=== PATIENT | female | born 1940 | race African-American/Black ===

== ENCOUNTER → 2017-03-20 | Outpatient (CLI) | payer OTHER ==
[2015-09-21 12:15] VITALS: BP 128/60
--- NOTE | 2017-03-20 11:34 | RAD ---
HISTORY: Low back pain. Study: AP and lateral lumbar spine Comparison: None Findings: Five lumbar type vertebra present. Mild osteopenia is noted. There is moderate facet arthropathy at multiple levels. Moderate lateral spurring is noted predominating at L2/L3. The lateral view demon strates 4- 5 mm of spondylolisthesis of L3 on L4. Moderately severe disc space narrowing is noted at L2/L3 with endplate sclerosis at this level. Moderate disc space narrowing is noted at L5/S1 with 2 -3 mm of retrolisthesis. Mild anterior spurring is present at several levels. IMPRESSION: 1. Lumbar spondylosis as described above. 2. No acute bony abnormalities are identified. Reported By:
--- NOTE | 2017-03-20 11:55 | RAD ---
Indication: Left hip pain . Exam: Left hip series Technique: AP pelvis and frog-leg view left hip. Findings: There is mild joint space narrowing symmetrically in both hips. No fracture or dislocation is seen. The pelvis is intact. The soft tissues are normal. Impression: Mild osteoarthritic changes in both hips with no acute abnormality seen. Reported By:
== END ==
LOC: RAD 10:47
PROVIDERS: ATTEND Nurse Practitioner Family
DX: M54.5 Low back pain (principal); M25.552 Pain in left hip; M47.816 Spondylosis without myelopathy or radiculopathy, lumbar region
CPT/HCPCS: 72100; 73501

== ENCOUNTER 2017-03-21 10:40 | Emergency (ER) | payer OTHER ==
[2017-03-21 10:50] VITALS: BP 134/82; BMI 22.8
[2017-03-21] MEDS ORDERED: TORADOL 60 MG VIAL IM ONE (11:00)
[2017-03-21] MEDS ORDERED: NORFLEX INJ IM ONE (11:00)
--- NOTE | 2017-03-21 11:02 | DR.GENAD ---
HPI - PCP Primary Care Physician: SANTIAGO JULES - HPI Comment HPI Comment: XRAY LT HIP DID NOT SHOW FRATURE. MEDS AT HOME NOT RELIEVING PAIN. NO TRAUMA. - Complaint/Symptoms Chief Complaint Doctors Comments: INCREASING LEFT HIP DOWN LEFT AMKLE FOR SEVERAL DAYS. Chief Complaint:: PATIENT [facility] DUE TO HAVING SEVERE HIP PAIN AND CRAMPING. PATIENT WAS SEEN BY SANTIAGO IN THE OFFICE ON FRI. AND HAD X RAY DONE YESTERDAY HERE AT THE HOSPITAL. BEEN GOING ON SINCE FRIDAY PAIN IS FROM THE TOP OF HIP TO THE ANKLE ON THE LEFT SIDE. PATIENT DENIES ANY FALLS OR TRAUMA. - Nurses notes reviewed Nurses Notes Review: Yes - Source History Provided: Patient, EMS - Mode of Arrival Mode of Arrival: EMS - Timing Onset of Chief Complaint: 03/16/17 Came on: Gradually - Duration Duration: Constant Duration: Days - Severity Severity: Moderate PMH - PMH Past Medical History: Yes Past Medical History: Arthritis, Diabetes, Hypertension Past Surgical History: Yes Surgical History: Appendectomy - Family History History of Family Medical Conditions: No - Social History Does patient currently use any type of tobacco product: Yes Have you used tobacco products in the last 12 months: Yes Type of Tobacco Use: Cigarettes How many years tobacco product used: 40 Do you use any recreational Drugs:: No Lives With: Family Lives Where: Home - infectious screening In the last 2 months have you had wt loss of >10#?: NO Have you had fever, night sweats or hemotysis?: No Have you traveled outside the country in the last 6 months?: No Isolation: Standard ROS - Review of Systems Constitutional: No Symptoms Reported Eyes: No Symptoms Reported ENTM: No Symptoms Reported Respiratoy: No Symptoms Reported Cardiovascular: No Symptoms Reported Gastrointestinal/Abdominal: No Symptoms Reported Genitourinary: No Symptoms Reported Neurological: No Symptoms Reported Musculoskeletal: Left, Hip, Leg, Ankle Integumentary: No Symptoms Reported Hematologic/Lymphatic: No Symptoms Reported Endocrine: No Symptoms Reported All Other Systems: Reviewed and Negative PE - Vital Signs Vitals: Temperature 98.9 F Pulse Rate 81 Respiratory Rate 16 Blood Pressure [Right Arm] 128/60 Blood Pressure 134/82 O2 Sat by Pulse Oximetry 96 - General Limitations: No Limitations General Appearance: Alert - Head Head Exam: Normal Inspection - Eyes Eye exam: Normal Appearance - ENT ENT Exam: Normal External Ear Exam External Ear Exam: Normal External Inspection TM/Canal Exam: Bilateral Normal Nose Exam: Normal Nose Exam Mouth Exam: Normal Inspection Throat Exam: Normal Inspection - Neck Neck Exam: Trachea Midline - Chest Chest Inspection: Symmetric Chest Wall Rise - Respiratory Respiratory Exam: Normal Lung Sounds Bilat Respiratory Exam: Bilateral Clear to Auscultation - Cardiovascular Cardiovascular Exam: Regular Rate, Normal Rhythm, Normal Heart Sounds - Abdominal Exam Abdominal Exam: Normal Inspection - Extremities Extremities Exam: Tenderness (LEFT HIP TENDER. DEUCE WITH PAIN.) - Back Back Exam: Normal Inspection, Paraspinal Tenderness - Neurologic Neurological Exam: Alert, Oriented X3 - Psychiatric Psychiatric Exam: Normal Affect, Normal Mood - Skin Skin Exam: Normal Color MDM - Differential Diagnosis Differential Diagnosis: ARTHRITIS, BURSITIS, TENDINITIS, FRACTURE LT HIP Course - Treatment Treatment: SEE ORDERS. - Education/Counseling Education/Counseling: Patient, Education Educated On: Treatment, Diagnosis, Needs for Follow Up - Diagnosis Discharge Problem: Arthritis DJD (degenerative joint disease) Qualifiers: Osteoarthritis location: hip Osteoarthritis type: unspecified Laterality: left Qualified Code(s): M16.12 - Unilateral primary osteoarthritis, left hip - Discharge Plan Disposition: HOME, SELF-CARE Condition: Stable Prescriptions: Cyclobenzaprine HCl [FLEXERIL 10 MG *] 10 mg PO BID PRN #14 tab PRN Reason: Tramadol HCl 50 mg PO BID #14 tablet - Follow ups/Referrals Follow ups/Referrals: SANTIAGO JULES [Primary Care Provider] - 3 days - Instructions Instructions: Osteoarthritis, Degenerative Disk Disease Additional Instructions: RETURN TO ED IF WORSE.
[2017-03-21] MEDS ORDERED: NORFLEX INJ ONE (11:10)
[2017-03-21] MEDS ORDERED: TORADOL 60 MG VIAL ONE (11:10)
--- NOTE | 2017-03-21 11:57 | CT ---
HISTORY: Left hip pain, nontraumatic Study: CT left hip without contrast Comparison: Plain film 03/20/2017 Technique: Axial noncontrast images with coronal and sagittal reformats. Dose reduction procedures we re used with mA/kv adjusted for body size. Findings: The bones are osteopenic. The visualized left side of the sacrum, left SI joint, and left pelvic bone s are intact. The left hip joint is intact. There is minimal degenerative joint space narrowing in th e hip joint. No joint erosions are noted. No fracture, lytic, or blastic lesion is identified. No per iarticular soft tissue abnormality is identified. IMPRESSION: Mild degenerative joint space narrowing left hip Osteopenia Reported By:
--- NOTE | 2017-03-21 12:03 | CT ---
HISTORY: Low back pain, nontraumatic Study: CT lumbar spine without contrast Comparison: None Technique: Axial noncontrast images with coronal and sagittal reformats. Dose reduction procedures we re used with mA/kv adjusted for body size. Findings: The bones are osteopenic. The alignment is normal with the exception of slight anterolisthesis L3 on L4. The vertebral bodies are of average height. No compression fractures are identified. The pedicles , spinous processes, and posterior elements are intact. The sacrum and SI joints are intact. Mild deg enerative changes present in the SI joints. The disc levels are evaluated as follows: L1-2 level: There is broad-based disc protrusion which is partially calcified and effaces the thecal sac. It contributes to mild lateral recess narrowing bilaterally. The joints are normal. L2-3 level: There is severe disc degeneration with vacuum phenomenon present. Broad-based disc osteop hyte formation effaces the thecal sac and contributes along with spondylitic change and bilateral fac et arthropathy to severe lateral recess and foraminal narrowing bilaterally left worse than right. L3-4 level: There is slight anterolisthesis L3 on L4. There is also diffuse disc protrusion which eff aces the thecal sac and contributes along with ligamentous hypertrophy and facet arthropathy and pedi cular shortening to a relative spinal stenosis with marked lateral recess and foraminal narrowing jevon aterally left worse than right. L4-5 level: Broad-based partially calcified disc protrusion contributes along with ligamentous hypert rophy, facet arthropathy and pedicular shortening to a relative spinal stenosis with lateral recess a nd foraminal narrowing bilaterally not quite as severe as at the levels above. L5-S1 level: There is disc degeneration with broad-based disc protrusion which contributes along with bilateral facet arthropathy to marked lateral recess and foraminal narrowing bilaterally. Incidental note is made of minimal focal dilatation of the distal abdominal aorta demonstrating a max imum diameter of 2.9 cm. IMPRESSION: As above Reported By:
[2017-03-21] MEDS ORDERED: MORPHINE SULFATE INJ 10 MG IVP ONE (12:21)
== END 2017-03-21 12:58 | disposition home or self-care (01) ==
LOC: ER 10:44
DX: M19.90 Unspecified osteoarthritis, unspecified site (principal); M16.12 Unilateral primary osteoarthritis, left hip
CPT/HCPCS: 72131; 73700; 96372; 99282; J1885; J2270; J2360

== ENCOUNTER 2018-03-19 06:33 | Observation (INO) ==
[2018-03-19] MEDS ORDERED: NS 1000 ML 1,000 ML ONE (06:43)
[2018-03-19 06:54] VITALS: BMI 22.8
[2018-03-19] MEDS ORDERED: ADENOCARD INJ 6 MG ONE (06:56)
[2018-03-19] MEDS ORDERED: CARDIZEM INJ 50 MG VIAL IVP ONE (06:59)
[2018-03-19] MEDS ORDERED: ADENOCARD INJ 6 MG IVP ONE (07:03)
[2018-03-19 07:17] LABS: BASOPHILS # (AUTO) 0.1 X10^3/uL (0.0-0.1); BASOPHILS % (AUTO) 0.4 % (0.2-1.0); EOSINOPHILS % (AUTO) 0.2 % (0.9-2.9); HEMATOCRIT 46.9 % (36.0-47.0); HEMOGLOBIN 15.3 g/dL (12.0-16.0); LYMPHOCYTES # (AUTO) 1.6 X10^3/uL (1.3-2.9); LYMPHOCYTES % (AUTO) 10.3 % (21.0-51.0); MEAN CORPUSCULAR HEMOGLOBIN 29.7 pg (27.0-34.0); MEAN CORPUSCULAR HGB CONC 32.6 g/dL (33.0-35.0); MEAN PLATELET VOLUME 8.7 fL (7.4-11.0); MONOCYTES # (AUTO) 0.8 x10^3/uL (0.3-0.8); MONOCYTES % (AUTO) 5.5 % (0.0-13.0); NEUTROPHILS # (AUTO) 12.8 x10^3/uL (2.2-4.8); NEUTROPHILS % (AUTO) 83.6 % (42.0-75.0); PLATELET COUNT 218 X10^3/uL (150.0-450.0); RED BLOOD COUNT 5.15 X10^6/uL (3.5-5.4); RED CELL DISTRIBUTION WIDTH 15.1 % (11.6-16.5); WHITE BLOOD COUNT 15.3 X10^3/uL (3.6-10.0)
--- NOTE | 2018-03-19 07:20 | DR.GENAD ---
HPI Time Seen Time Seen by Provider: 03/19/18 06:46 PCP Primary Care Physician: GANGA AVERY Complaint/Symptoms Chief Complaint Doctors Comments: Patient presented to the ED with complaint of severe stomach pain onset this AM. She states that she had nausea and vomiting. No recent BM. Chief Complaint:: PT C/O SUDDEN ONSET OF SEVERE LOWER ABDOMINAL PAIN THAT STARTED AROUND 3AM THIS MORNING ASSOCIATED WITH NAUSEA AND VOMITING. DENIES DIARRHEA. PT STATES SHE HASN'T HAD A BM SINCE FRIDAY Source History Provided: Patient and EMS Mode of Arrival Mode of Arrival: EMS Timing Onset of Chief Complaint: 03/19/18 PMH PMH Past Medical History: Yes Past Medical History: Diabetes and Hypertension Past Medical History Comment: RHEUMATOID ARTHRITIS Past Surgical History: Yes Surgical History: Appendectomy Family History History of Family Medical Conditions: Yes Family Medical History: Coronary Artery Disease Social History Does patient currently use any type of tobacco product: No Have you used tobacco products in the last 12 months: No Type of Tobacco Use: None Does any household member use tobacco: No Alcohol Use: None Do you use any recreational Drugs:: No Lives With: Alone Lives Where: Home infectious screening In the last 2 months have you had wt loss of >10#?: NO Have you had fever, night sweats or hemotysis?: No Have you traveled outside the country in the last 6 months?: No Isolation: Standard PE Vital Signs Vitals: Temperature 98.5 F Pulse Rate 86 Respiratory Rate 22 Blood Pressure [Right Arm] 128/60 Blood Pressure 147/94 O2 Sat by Pulse Oximetry 97 General Limitations: No Limitations General Appearance: Alert and Anxious Head Head Exam: Normal Inspection, Atraumatic and Normocephalic Eyes Eye exam: Normal Appearance, PERRL and EOMI ENT ENT Exam: Normal Exam, Normal Oropharynx and Normal External Ear Exam TM/Canal Exam: Bilateral: Normal Nose Exam: Normal Nose Exam and Sinus Tenderness Mouth Exam: Normal Inspection Throat Exam: Normal Inspection Chest Chest Inspection: Normal Inspection and Symmetric Chest Wall Rise Respiratory Respiratory Exam: Normal Lung Sounds Bilat and Accessory Muscle Use Respiratory Exam: Bilateral: Clear to Auscultation Cardiovascular Cardiovascular Exam: Tachycardia (HR>185) Abdominal Exam Abdominal Exam: Normal Inspection and Distention Abdominal Tenderness: Epigastrium and Suprapubic Extremities Extremities Exam: Normal Inspection Back Back Exam: Normal Inspection, Full ROM and Tenderness Neurologic Neurological Exam: Alert, Oriented X3 and CN II-XII Intact Psychiatric Psychiatric Exam: Flat Affect Skin Skin Exam: Warm, Dry and Intact COURSE Consultation Called: 07:00 Consultation Comments: Dr. Harrell agreed to admit for further evaluation and treatment ROR Labs Reviewed Laboratory Results Reviewed?: Yes Result Diagrams: 03/19/18 07:08 03/19/18 07:08 Laboratory: WBC 15.3 X10^3/uL (3.6-10.0) H 03/19/18 07:08 RBC 5.15 X10^6/uL (3.5-5.4) 03/19/18 07:08 Hgb 15.3 g/dL (12.0-16.0) 03/19/18 07:08 Hct 46.9 % (36.0-47.0) 03/19/18 07:08 MCV 91.0 fL (80.0-100.0) 03/19/18 07:08 MCH 29.7 pg (27.0-34.0) 03/19/18 07:08 MCHC 32.6 g/dL (33.0-35.0) L 03/19/18 07:08 RDW 15.1 % (11.6-16.5) 03/19/18 07:08 Plt Count 218 X10^3/uL (150.0-450.0) 03/19/18 07:08 MPV 8.7 fL (7.4-11.0) 03/19/18 07:08 Neut % (Auto) 83.6 % (42.0-75.0) H 03/19/18 07:08 Lymph % (Auto) 10.3 % (21.0-51.0) L 03/19/18 07:08 [place] % (Auto) 5.5 % (0.0-13.0) 03/19/18 07:08 Eos % (Auto) 0.2 % (0.9-2.9) L 03/19/18 07:08 Baso % (Auto) 0.4 % (0.2-1.0) 03/19/18 07:08 Neut # (Auto) 12.8 x10^3/uL (2.2-4.8) H 03/19/18 07:08 Lymph # (Auto) 1.6 X10^3/uL (1.3-2.9) 03/19/18 07:08 [place] # (Auto) 0.8 x10^3/uL (0.3-0.8) 03/19/18 07:08 Eos # (Auto) 0.0 x10^3/uL (0.0-0.2) 03/19/18 07:08 Baso # (Auto) 0.1 X10^3/uL (0.0-0.1) 03/19/18 07:08 Absolute Nucleated RBC 0.1 /100WBC 03/19/18 07:08 INR Target Range - 03/19/18 15:04 INR 1.08 (0.8-1.3) 03/19/18 15:04 APTT 29.8 SECONDS (22.9-36.5) 03/19/18 15:04 PTT Comment - 03/19/18 15:04 Sodium 139 mmol/L (136-145) 03/19/18 07:08 Corrected Sodium 142 mmol/L (136-145) 03/19/18 07:08 Potassium 3.8 mmol/L (3.5-5.1) 03/19/18 07:08 Chloride 105 mmol/L (98-107) 03/19/18 07:08 Carbon Dioxide 19.2 mmol/L (21-32) L 03/19/18 07:08 BUN 23 mg/dL (7-18) H 03/19/18 07:08 Creatinine 1.37 mg/dL (0.55-1.02) H 03/19/18 07:08 Est GFR (MDRD) Af Amer 48 (>60) L 03/19/18 07:08 Est GFR (MDRD) Non-Af 40 (>60) L 03/19/18 07:08 Glucose 239 mg/dL (65-99) H 03/19/18 07:08 Lactic Acid 3.5 mmol/L (0.4-2.0) H 03/19/18 15:04 Calcium 9.2 mg/dL (8.5-10.1) 03/19/18 07:08 Corrected Calcium 10.2 mg/dL (8.5-10.1) H 03/19/18 07:08 Total Bilirubin 0.60 mg/dL (0.2-1.0) 03/19/18 07:08 AST 31 Units/L (15-37) 03/19/18 07:08 ALT 18 Units/L (12-78) 03/19/18 07:08 Alkaline Phosphatase 131 Units/L (46-116) H 03/19/18 07:08 Creatine Kinase 415 Units/L (26-192) H 03/19/18 12:58 CK-MB (CK-2) 55.0 ng/mL (0-4.0) H* 03/19/18 12:58 CK/CKMB % Calc 13.3 % (<4) 03/19/18 12:58 Troponin I 13.66 ng/mL (0-1.5) H* 03/19/18 15:04 Total Protein 6.8 g/dL (6.4-8.2) 03/19/18 07:08 Albumin 2.7 g/dL (3.4-5.0) L 03/19/18 07:08 Globulin 4.1 g/dL (2.5-4.5) 03/19/18 07:08 Albumin/Globulin Ratio 0.7 Ratio (1.1-2.1) L 03/19/18 07:08 Specimen Type Catherized urine 03/19/18 07:35 Urine Color Dark yellow (YELLOW) 03/19/18 07:35 Urine Appearance Hazy (CLEAR) 03/19/18 07:35 Urine pH 5.0 (5.0 - 8.0) 03/19/18 07:35 Ur Specific [place] 1.010 (1.000-1.030) 03/19/18 07:35 Urine Protein 2+ (NEGATIVE) 03/19/18 07:35 Urine Glucose (UA) Negative (NEGATIVE) 03/19/18 07:35 Urine Ketones 1+ (NEGATIVE) 03/19/18 07:35 Urine Occult Blood 2+ (NEGATIVE) 03/19/18 07:35 Urine Nitrite Positive (NEGATIVE) 03/19/18 07:35 Urine Bilirubin 1+ (NEGATIVE) 03/19/18 07:35 Urine Urobilinogen 1+ (NORMAL) 03/19/18 07:35 Ur Leukocyte Esterase 2+ (NEGATIVE) 03/19/18 07:35 Urine RBC None seen /HPF (NONE SEEN) 03/19/18 07:35 Urine WBC 0-2 /HPF (NONE SEEN) 03/19/18 07:35 Ur Squamous Epith Cells Few /HPF (NEGATIVE) 03/19/18 07:35 Urine Bacteria Trace /HPF (NEGATIVE) 03/19/18 07:35 Hyaline Casts Few /LPF (NEGATIVE) 03/19/18 07:35 Ur Culture Indicated? No/not indicated 03/19/18 07:35 Other Results Comments: Chest: The heart is normal limits in size. No congestive heart failure is noted. The aorta is calcified. The lungs are well inflated and free of acute alveolar infiltrates. Diffuse interstitial lung changes are present stable when compared with the prior examination and likely chronic. The bony thorax is unremarkable. Impression: Diffuse chronic appearing interstitial lung changes, stable. No acute infiltrates. XRAY XRAY Interpreted by: Radiologist Diagnosis Discharge Problem: Sustained SVT Diabetes mellitus Qualifiers: Diabetes mellitus type: other specified (including [place]) Diabetes mellitus fpc insulin use: without fpc use Diabetes mellitus complication status: with unspecified complications Qualified Code(s): E13.8 - Other specified diabetes mellitus with unspecified complications ADDITIONAL NOTES Additional Notes Additional Notes: Patient admitted for further evaluation and treatment
--- NOTE | 2018-03-19 07:25 | RAD ---
HISTORY: Tachycardia, abdominal pain Study: Chest AP portable Comparison: 08/26/2017 Findings: The heart is within normal limits in size. No congestive heart failure is noted. The aorta is calcified. The lungs are well inflated and free of acute alveolar infiltrates. Diffuse interstitial lung changes are present stable when compared with the prior examination and likely chronic. The bony thorax is unremarkable. IMPRESSION: Diffuse chronic appearing interstitial lung changes, stable No acute infiltrates Reported By:
[2018-03-19 07:33] LABS: LACTIC ACID 4.6 mmol/L (0.4-2.0)
[2018-03-19 07:35] LABS: CALCIUM 9.2 mg/dL (8.5-10.1); CARBON DIOXIDE 19.2 mmol/L (21-32); CREATININE 1.37 mg/dL (0.55-1.02); TROPONIN I 0.61 ng/mL (0-1.5)
[2018-03-19] MEDS: NS 1000 ML 1,000 ML IV SCH ×3 (07:42→17:03)
[2018-03-19 07:47] LABS: BILIRUBIN,URINE 1+ (NEGATIVE); BLOOD/HEMOGLOBIN,URINE 2+ (NEGATIVE); GLUCOSE, URINE NEGATIVE (NEGATIVE); KETONES,URINE 1+ (NEGATIVE); LEUKOCYTE ESTERASE ,URINE 2+ (NEGATIVE); NITRITES,URINE POSITIVE (NEGATIVE); PROTEIN,URINE 2+ (NEGATIVE); UROBILINOGEN,URINE 1+ (NORMAL)
[2018-03-19 07:58] LABS: ALBUMIN 2.7 g/dL (3.4-5.0); COR CA(FOR HYPOALB) 10.2 mg/dL (8.5-10.1); TOTAL PROTEIN 6.8 g/dL (6.4-8.2)
[2018-03-19 07:58] LABS: APPEARANCE,URINE HAZY (CLEAR); BACTERIA,URINE TRACE /HPF (NEGATIVE); COLOR,URINE DARK YELLOW (YELLOW); HYALINE CASTS, URINE FEW /LPF (NEGATIVE); RBC,URINE NONE SEEN /HPF (NONE SEEN); SQUAMOUS EPITHELIAL CELL,UR FEW /HPF (NEGATIVE)
[2018-03-19] MEDS ORDERED: MORPHINE SULFATE INJ 4 MG IVP PRN (08:30)
--- NOTE | 2018-03-19 08:31 | RAD ---
History: Abdominal pain and nausea and vomiting and diarrhea Study: KUB graph comparison: None Findings: The bowel gas pattern is unremarkable. There are degenerative changes in the spine. No abnormal mass or calcification is suggested. Impression: No acute disease suggested Reported By:
[2018-03-19] MEDS ORDERED: ETANERCEPT 50 MG SUBCUT SCH (10:37)
[2018-03-19] MEDS ORDERED: FLEXERIL TAB 10 MG PO PRN (10:37)
--- NOTE | 2018-03-19 10:38 | CT ---
STUDY: CT HEAD WITHOUT CONTRAST HISTORY: Severe headache. SVT. COMPARISON: None. TECHNIQUE: Multiple axial images of the head were obtained from the skull base to the vertex without administration of IV contrast. Automated exposure control (AEC) was utilized to adjust the MA and/or kV. Findings: The sulci, cisterns and ventricles are prominent consistent with diffuse volume loss. There are confluent and scattered foci of low attenuation in the periventricular and subcortical white matter of both hemispheres. This is a nonspecific finding which likely represents microangiopathic change in a patient of this age. There are old lacunar infarcts in the basal ganglia bilaterally. There is no evidence of acute territorial infarction, hemorrhage, mass, mass effect or midline shift. There are no abnormal extra-axial fluid collections. There is no evidence of acute osseous abnormality or significant soft tissue swelling. IMPRESSION: 1. No evidence of acute intracranial abnormality. 2. Old lacunar infarcts in the basal ganglia bilaterally. 3. Nonspecific white matter change and volume loss as described. 4. If there is strong clinical concern for acute intracranial abnormality, then an MRI examination of the brain could be performed for further evaluation. However, if there are no deficits on neurologic exam, there are no abnormalities identified on this study which require immediate imaging follow-up on an emergent basis. Follow-up MRI could be considered on an outpatient basis as clinically warranted. Reported By:
[2018-03-19] MEDS ORDERED: ZESTRIL TAB 40 MG PO SCH (11:00)
[2018-03-19] MEDS ORDERED: NEURONTIN CAP 300 MG PO SCH (11:00)
[2018-03-19] MEDS ORDERED: ROCEPHIN VIAL 1 GRAM IVP SCH (13:45)
[2018-03-19 13:51] LABS: CKMB % 13.3 % (<4)
[2018-03-19 13:55] LABS: TROPONIN I 9.96 ng/mL (0-1.5)
[2018-03-19] MEDS ORDERED: LOPRESSOR TAB 25 MG PO SCH (14:00)
[2018-03-19] MEDS ORDERED: HEPARIN SODIUM IN D5W 25,000 UNITS/500 ML BAG IV PRN (14:35)
[2018-03-19] MEDS ORDERED: PLAVIX PO STA (14:45)
[2018-03-19] MEDS ORDERED: ASPIRIN 81 MG CHEWTAB PO STA (14:48)
[2018-03-19] MEDS ORDERED: LOPRESSOR TAB 25 MG PO ONE (14:56)
[2018-03-19] MEDS ORDERED: ASPIRIN 81 MG CHEWTAB PO NR (15:00)
[2018-03-19] MEDS ORDERED: PLAVIX PO NR (15:00)
[2018-03-19 15:29] LABS: LACTIC ACID 3.5 mmol/L (0.4-2.0)
[2018-03-19 15:42] LABS: TROPONIN I 13.66 ng/mL (0-1.5)
[2018-03-19] MEDS ORDERED: HEPARIN SODIUM INJ 5000 UNITS ONE (15:42)
[2018-03-19] MEDS ORDERED: HEPARIN SODIUM INJ 5000 UNITS IVP ONE (15:45)
[2018-03-19] MEDS ORDERED: GLUCOPHAGE PO SCH (17:00)
[2018-03-19 17:14] VITALS: BP 147/94
--- NOTE | 2018-03-19 17:52 | DR.H&P ---
H&P - History & Physical for Day of: H&P Date: 03/19/18 - Chief Complaint Chief Complaint: SOB, NEAR SYNCOPE - History of Present Illness History of Present Illness: 77 BF ER ADMISSION AFTER PRESENTING WITH CO NEAR SYNCOPE AND SOB WHILE HAVING BM. PT STATES SHE HAD BEEN CONSTIPATED AND TOOK LAXITIVES AND WOKE UP DURING THE NIGHT WITH STOMACH PAIN AND LOOSE STOOL, BECAME VERY WEAK AND "ABOUT PASSED OUT" PT'S SON CALLED EMS. UPON ARRIVAL TO ER PT WAS IN SVT. PT GIVEN ADENOSEN IN ER AND CONVERTED TO SR. PT HAS PMH OF RA, HTN, OA, GERD, DM AND COPD. NO KNOWN CARDIAC HISTORY. PT ADMITTED TO ICU FOR EVALAUTION AND TREATMENT OF ACUTE ILLNESS. - Past Medical History Past Medical History: Hypertension, Diabetes - Past Surgical History Surgical History: Appendectomy - Family History Family Medical History: Coronary Artery Disease - Social History Does patient currently use any type of tobacco product: No Have you used tobacco products in the last 12 months: No Type of Tobacco Use: None Does any household member use tobacco: No Alcohol Use: None Drug Use: None - Medications Home Medications: No Known Drug Allergies Allergy (Verified 03/21/17 12:20) CONTINUE taking the following medications albuterol sulfate [ProAir HFA] 2 puff INHALATION QID PRN 03/19/18 [History] cyanocobalamin (vitamin B-12) 1,000 mcg IM WEEKLY 03/19/18 [History] folic acid 1 mg PO DAILY 03/19/18 [History] gabapentin 100 mg PO DAILY 03/19/18 [History] gabapentin 200 mg PO HS 03/19/18 [History] lisinopril 40 mg PO DAILY 03/19/18 [History] - Review of Systems Constitutional: Chills, Weakness Eyes: No Symptoms Reported ENT: No Symptoms Reported Respiratory: Shortness of Breath Cardiovascular: Palpitations, Light Headedness Gastrointestinal: Nausea, Vomiting, Abdominal Pain, Diarrhea Genitourinary: No Symptoms Reported Musculoskeletal: Back Pain Neurological: Weakness - Physical Exam Vital Signs: Temperature 98.5 F Pulse Rate 86 Respiratory Rate 22 Blood Pressure [Right Arm] 128/60 Blood Pressure 147/94 O2 Sat by Pulse Oximetry 97 Oriented: Normal Eyes: Normal Ear: Normal, Left Throat: Normal Respiratory: RLL Diminished, LLL Diminished Cardiovascular: Tachycardia : Normal Auscultation: Bowel Sounds: Normal Palpation: Normal Tenderness: Normal Skin: Normal Musculoskeletal: Back:Lumbar Psychiatric: Anxiety Affect: Anxious Speech Pattern: Clear, Appropriate - Assessment/Plan (1) Syncope, near Status: Acute Plan: ADMIT ICU, CONTINUOUS CARDIAC MONITORING, SUPPLEMENTAL O2, GENTLE HYDRATION, STRICT I & OS. CT HEAD ON ADMISSION, SERIAL CE AND EKG. BP AND LIPID CONTROL. LOVENOX PROPHALAXIS (2) Constipation Status: Acute (3) Diabetes mellitus Qualifiers: Diabetes mellitus type: other specified (including [place]) Diabetes mellitus senior care insulin use: without finish repairer use Diabetes mellitus complication status: with unspecified complications Qualified Code(s): E13.8 - Other specified diabetes mellitus with unspecified complications Status: Acute (4) Sustained SVT Status: Acute (5) Arthritis Status: Acute (6) Chest pain Qualifiers: Chest pain type: unspecified Qualified Code(s): R07.9 - Chest pain, unspecified Status: Acute (7) DJD (degenerative joint disease) Qualifiers: Osteoarthritis location: hip Osteoarthritis type: unspecified Laterality: left Qualified Code(s): M16.12 - Unilateral primary osteoarthritis, left hip Status: Acute - Allergies Allergies/Adverse Reactions: Allergies Allergy/AdvReac Type Severity Reaction Status Date / Time No Known Drug Allergies Allergy Verified 03/21/17 12:20
[2018-03-19] MEDS ORDERED: NEURONTIN TAB 600 MG PO SCH (21:00)
[2018-03-20] MEDS ORDERED: PLAVIX PO SCH ×2 (09:00→14:39)
[2018-03-20] MEDS ORDERED: ASPIRIN 81 MG CHEWTAB PO SCH ×2 (09:00→14:34)
== END 2018-03-19 17:58 | disposition short-term general hospital (02) ==
LOC: OBS 06:34 → ER 06:34 → OBS 10:21 → ICU 10:26
PROVIDERS: ADMIT Internal Medicine; ATTEND Internal Medicine
DX: R07.89 Other chest pain; I47.1 Supraventricular tachycardia; K59.09 Other constipation; R11.2 Nausea with vomiting, unspecified; R10.84 Generalized abdominal pain; R94.31 Abnormal electrocardiogram [ECG] [EKG]; D72.828 Other elevated white blood cell count; I25.2 Old myocardial infarction; E11.65 Type 2 diabetes mellitus with hyperglycemia; R55 Syncope and collapse; M06.80 Other specified rheumatoid arthritis, unspecified site; M16.12 Unilateral primary osteoarthritis, left hip; R06.02 Shortness of breath
CPT/HCPCS: 36415; 51702; 70450; 71010; 71045; 74000; 74018; 80053; 81001; 82550; 82553; 83605; 84484; 85025; 85610; 85730; 87040; 93005; 93041; 96365; 96367; 96374; 99284; A4222; G0378; J0153; J0696; J1644; J2270; J7030

== ENCOUNTER 2018-06-23 08:03 | Observation (INO) ==
[2018-06-23 08:48] LABS: BASOPHILS % (AUTO) 0.4 % (0.2-1.0); EOSINOPHILS # (AUTO) 0.2 x10^3/uL (0.0-0.2); EOSINOPHILS % (AUTO) 2.6 % (0.9-2.9); HEMOGLOBIN 13.9 g/dL (12.0-16.0); LYMPHOCYTES # (AUTO) 2.8 X10^3/uL (1.3-2.9); LYMPHOCYTES % (AUTO) 37.7 % (21.0-51.0); MEAN CORPUSCULAR HEMOGLOBIN 29.5 pg (27.0-34.0); MEAN CORPUSCULAR HGB CONC 33.1 g/dL (33.0-35.0); MEAN PLATELET VOLUME 8.9 fL (7.4-11.0); MONOCYTES # (AUTO) 0.5 x10^3/uL (0.3-0.8); MONOCYTES % (AUTO) 6.2 % (0.0-13.0); NEUTROPHILS # (AUTO) 3.9 x10^3/uL (2.2-4.8); NEUTROPHILS % (AUTO) 53.1 % (42.0-75.0); PLATELET COUNT 181 X10^3/uL (150.0-450.0); RED BLOOD COUNT 4.72 X10^6/uL (3.5-5.4); RED CELL DISTRIBUTION WIDTH 15.5 % (11.6-16.5); WHITE BLOOD COUNT 7.4 X10^3/uL (3.6-10.0)
[2018-06-23 09:00] LABS: BLOOD UREA NITROGEN 15 mg/dL (7-18); CALCIUM 9.4 mg/dL (8.5-10.1); CARBON DIOXIDE 24.1 mmol/L (21-32); CHLORIDE 105 mmol/L (98-107); CREATININE 0.67 mg/dL (0.55-1.02); SODIUM 138 mmol/L (136-145); TROPONIN I < 0.02 ng/mL (0-1.5); eGFR NON BLACK RACES > 60 (>60)
[2018-06-23 09:05] LABS: ALANINE AMINOTRANSFERASE 17 Units/L (12-78); ALBUMIN 2.9 g/dL (3.4-5.0); ALKALINE PHOSPHATASE 99 Units/L (46-116); ASPARTATE AMINO TRANSFERASE 22 Units/L (15-37); CKMB % 6.5 % (<4); COR CA(FOR HYPOALB) 10.3 mg/dL (8.5-10.1); CREATINE KINASE 31 Units/L (26-192)
--- NOTE | 2018-06-23 09:08 | CT ---
CT HEAD WITHOUT CONTRAST CLINICAL HISTORY: 77-year-old female with dizziness, weakness and syncopal episode. COMPARISON: CT head 03/19/2018. TECHNIQUE: Multiple, non-contrasted axial CT images were obtained from the skull base to the cranial vertex. Coronal and sagittal reformats were performed. FINDINGS: There are no abnormal intra- or extra-axial fluid collections, midline shift, or mass effect. Smith-white differentiation is normal. Global cortical involutional changes are present that are advanced for the patient's stated age. The ventricular system is enlarged but commensurate with the degree of sulcal prominence. Chronic lacunar infarctions bilateral basal ganglia. Severe periventricular and supraventricular white matter hypodensity is present that is nonspecific in appearance, but most likely to represent microvascular ischemic changes. Atherosclerotic vascular calcification is present within the carotid siphons and distal vertebral arteries. The imaged paranasal sinuses, mastoid air cells, and tympanic spaces are clear. IMPRESSION: 1. No definite evidence of an acute intracranial process. If clinical concern persists for acute stroke and it would alter patient management, consider MRI/MRA brain. 2. Chronic lacunar infarctions bilateral basal ganglia. 3. Severe microvascular white matter ischemic changes, with associated volume loss. Reported By:
--- NOTE | 2018-06-23 09:09 | RAD ---
HISTORY: 77-year-old female with dizziness and weakness with syncopal episode. Study: Frontal views of the chest. Comparison: Chest radiographs 03/19/2018 Findings: The trachea is midline. The cardiac silhouette is stable with chronic hyper expansion of the lungs and prominent interstitium/perihilar lung markings. The lungs are clear without focal consolidation, effusion or pneumothorax. Soft tissues are unremarkable. Osseous structures are unremarkable. IMPRESSION: 1. No acute cardiopulmonary disease with findings suggesting COPD. Reported By:
--- NOTE | 2018-06-23 10:04 | DR.DIZZY ---
HPI Time seen Time Seen by Provider: 06/23/18 09:44 PCP Primary Care Physician: DHARA HPI Comment HPI Comment: PATIENT IS 77YR OLD MALE WITH HISTORY OF HYPERTENSION AND DIABETES WHO IS IN ED WITH DIZZINESS AND ATAXIA TIMES ONE DAY. PATIENT SAID HIS SURROUNDIND IS SPINING ABD IS ATAXIC. SYMPTOMS CAUSING PATIENT TO STAY STILL IN BED. MOVEMENT AND ACTVITIES CAUSE HIM TO FEEL WORSE. HE DRNIES HEADACHE OR TRAUMA. NO FEVER. SYMPTOMS NOT RESOLVING. Complaint Chief Complaint Doctor Comments: DIZZINESS AND INBALANCE TIMES 1 DAY. Chief Complaint:: PT C/O DIZZINESS THAT STARTED YESTERDAY. PT DENIES FALLING, BUT GRABBING THE FURNITURE AND WALL WHEN WALKING. Nurses Notes Reviewed Nurses Notes Review: Yes Source History Provided: Patient Mode of Arrival Mode of Arrival: EMS Timing Onset of Chief Complaint: 06/22/18 Came on: Suddenly Duration Duration: Constant Duration: Days Location of Weakness Weakness Location: Generalized Context Onset: At rest and With light exertion Does pt take pot. toxic medication?: No History of: DM Stroke Symptoms: Ataxia Severity Severity: Abnormal activity level Associated signs and symptoms Associated Signs and Symptoms: Faintness, Near Syncope, Imbalance and Nausea; denies Tinnitus and Fever Other history Other history: HISTORYVDM AND HTN. PMH PMH Past Medical History: Yes Past Medical History: Diabetes and Hypertension Past Surgical History: Yes Surgical History: Appendectomy Family History History of Family Medical Conditions: Yes Family Medical History: Coronary Artery Disease Social History Does any household member use tobacco: No Alcohol Use: None Do you use any recreational Drugs:: No Lives With: Family Lives Where: Home infectious screening In the last 2 months have you had wt loss of >10#?: NO Have you had fever, night sweats or hemotysis?: No Have you traveled outside the country in the last 6 months?: No Isolation: Standard ROS Review of Systems Constitutional: Weakness and Fatigue; negative Fever Eyes: No Symptoms Reported ENTM: Ear Pain, Nose Discharge and Nose Congestion Respiratoy: No Symptoms Reported Cardiovascular: No Symptoms Reported Gastrointestinal/Abdominal: No Symptoms Reported; negative Abdominal Pain, Constipation, Diarrhea, Nausea and Vomiting Genitourinary: No Symptoms Reported; negative Dysuria, Frequency and Hematuria Neurological: No Symptoms Reported, Headache, Weakness and Dizziness; negative Seizure Musculoskeletal: negative Back Pain, Joint Pain, Muscle Pain and Neck Pain Integumentary: No Symptoms Reported; negative Change in Color, Itching, Bruises and Juandice Hematologic/Lymphatic: No Symptoms Reported; negative Easy Bleeding and Easy Bruising Endocrine: No Symptoms Reported; negative Flushing, Increased Thirst and Increased Urine Psychiatric: No Symptoms Reported All Other Systems: Reviewed and Negative PE Vital Signs Vitals: Temperature 98.1 F Pulse Rate [Right Brachial] 57 Pulse Rate [Left Brachial] 60 Pulse Rate 58 Respiratory Rate 20 Blood Pressure [Left Arm] 130/62 Blood Pressure [Right Arm] 135/60 Blood Pressure 139/75 O2 Sat by Pulse Oximetry 97 General Limitations: No Limitations General Appearance: Alert and In No Apparent Distress Head Head Exam: Normal Inspection, Atraumatic and Normocephalic Eyes Eye exam: Normal Appearance, PERRL and EOMI; negative Scleral Icterus, Conjunctival Injection and Nystagmus Pupils: Regular, Round: Bilateral and Reactive: Bilateral Sclera/Conjunctival: Normal Inspection: Bilateral ENT ENT Exam: Normal Exam, Normal Oropharynx and Normal External Ear Exam Neck Neck Exam: Normal Inspection and Full ROM Chest Chest Inspection: Normal Inspection Respiratory Respiratory Exam: Normal Lung Sounds Bilat Respiratory Exam: Bilateral: Clear to Auscultation Cardiovascular Cardiovascular Exam: Regular Rate, Normal Rhythm, Systolic Murmur, Diastolic Murmur, Rubs, Gallop and Clicks Abdominal Exam Abdominal Exam: Normal Inspection, Normal Bowel Sounds, Soft and Tenderness Rectal Rectal Exam: Deferred Extremeties Extremities Exam: Normal Inspection and Full ROM; negative Tenderness Back Back Exam: Normal Inspection and Full ROM; negative Tenderness, Paraspinal Tenderness and Vertebral Tenderness Neurologic Neurological Exam: Alert, Oriented X3, CN II-XII Intact and Normal Gait; negative Motor Sensory Deficit Speech: Fluid Speech Cranial Nerve Exam: EOM Function (II, III, IV, ): Normal, Facial Sensation (V): Normal, Facial Palsy (VII): Normal, Gag reflex (XI): Normal and Tongue Deviation: Normal Motor Strength - LUE: 5/5 Motor Strength - RUE: 5/5 Motor Strength - LLE: 5/5 Motor Strength - RLE: 5/5 Upper Motor Neuron Exam: Babinski Sign: Normal DTR: bicep (L): 2+, bicep (R): 2+, Patellar (L): 2+ and patellar (R): 2+ Psychiatric Psychiatric Exam: Normal Affect and Anxious Skin Skin Exam: Warm, Dry, Intact and Normal Color MDM Additional Information Obtained Additional Information Obtained From: Old Records (reviewed old record from 05/2014.) Differential Diagnosis Differential Diagnosis: Anemia, CVA, Dehydration, Dysrhythmia, Electrolyte disorder, Hypoglycemia, Labyrinthitis, Myocardial infarction, TIA and Central Vertigo COURSE Treatment Treatment: SEE ORDERS. MECLIZINE PO IN ED. Education/Counseling Education/Counseling: Patient and Family Educated On: Diagnosis ROR Labs Reviewed Laboratory Results Reviewed?: Yes Result Diagrams: 06/24/18 04:40 06/24/18 04:40 Laboratory: WBC 6.3 X10^3/uL (3.6-10.0) 06/24/18 04:40 RBC 4.33 X10^6/uL (3.5-5.4) 06/24/18 04:40 Hgb 13.0 g/dL (12.0-16.0) 06/24/18 04:40 Hct 39.1 % (36.0-47.0) 06/24/18 04:40 MCV 90.2 fL (80.0-100.0) 06/24/18 04:40 MCH 30.1 pg (27.0-34.0) 06/24/18 04:40 MCHC 33.4 g/dL (33.0-35.0) 06/24/18 04:40 RDW 15.3 % (11.6-16.5) 06/24/18 04:40 Plt Count 163 X10^3/uL (150.0-450.0) 06/24/18 04:40 MPV 9.1 fL (7.4-11.0) 06/24/18 04:40 Neut % (Auto) 35.0 % (42.0-75.0) L 06/24/18 04:40 Lymph % (Auto) 54.6 % (21.0-51.0) H 06/24/18 04:40 [place] % (Auto) 6.8 % (0.0-13.0) 06/24/18 04:40 Eos % (Auto) 3.4 % (0.9-2.9) H 06/24/18 04:40 Baso % (Auto) 0.2 % (0.2-1.0) 06/24/18 04:40 Neut # (Auto) 2.2 x10^3/uL (2.2-4.8) 06/24/18 04:40 Lymph # (Auto) 3.5 X10^3/uL (1.3-2.9) H 06/24/18 04:40 [place] # (Auto) 0.4 x10^3/uL (0.3-0.8) 06/24/18 04:40 Eos # (Auto) 0.2 x10^3/uL (0.0-0.2) 06/24/18 04:40 Baso # (Auto) 0.0 X10^3/uL (0.0-0.1) 06/24/18 04:40 Absolute Nucleated RBC 0.0 /100WBC 06/24/18 04:40 Sodium 141 mmol/L (136-145) 06/24/18 04:40 Corrected Sodium TNP 06/24/18 04:40 Potassium 4.3 mmol/L (3.5-5.1) 06/24/18 04:40 Chloride 107 mmol/L (98-107) 06/24/18 04:40 Carbon Dioxide 25.0 mmol/L (21-32) 06/24/18 04:40 BUN 13 mg/dL (7-18) 06/24/18 04:40 Creatinine 0.65 mg/dL (0.55-1.02) 06/24/18 04:40 Est GFR (MDRD) Af Amer > 60 (>60) 06/24/18 04:40 Est GFR (MDRD) Non-Af > 60 (>60) 06/24/18 04:40 Glucose 88 mg/dL (65-99) 06/24/18 04:40 Calcium 9.3 mg/dL (8.5-10.1) 06/24/18 04:40 Corrected Calcium 10.5 mg/dL (8.5-10.1) H 06/24/18 04:40 Iron 33 ug/dL (50-175) L 06/23/18 19:51 Transferrin 201 mg/dL (202-364) L 06/23/18 19:51 Ferritin 50 ng/mL (8-252) 06/23/18 19:51 Total Bilirubin 0.20 mg/dL (0.2-1.0) 06/24/18 04:40 AST 19 Units/L (15-37) 06/24/18 04:40 ALT 17 Units/L (12-78) 06/24/18 04:40 Alkaline Phosphatase 102 Units/L (46-116) 06/24/18 04:40 Creatine Kinase 27 Units/L (26-192) 06/23/18 19:51 CK-MB (CK-2) < 1.0 ng/mL (0-4.0) 06/23/18 19:51 CK/CKMB % Calc 3.7 % (<4) 06/23/18 19:51 Troponin I 0.02 ng/mL (0-1.5) 06/23/18 19:51 Total Protein 6.3 g/dL (6.4-8.2) L 06/24/18 04:40 Albumin 2.5 g/dL (3.4-5.0) L 06/24/18 04:40 Globulin 3.8 g/dL (2.5-4.5) 06/24/18 04:40 Albumin/Globulin Ratio 0.7 Ratio (1.1-2.1) L 06/24/18 04:40 Vitamin B12 > 2000 pg/mL (193-986) H 06/23/18 19:51 Folate 6.6 ng/mL (>8.6) L 06/23/18 19:51 Specimen Type Clean catch urine 06/23/18 12:55 Urine Color Yellow (YELLOW) 06/23/18 12:55 Urine Appearance Clear (CLEAR) 06/23/18 12:55 Urine pH 6.0 (5.0 - 8.0) 06/23/18 12:55 Ur Specific [place] 1.025 (1.000-1.030) 06/23/18 12:55 Urine Protein Negative (NEGATIVE) 06/23/18 12:55 Urine Glucose (UA) Negative (NEGATIVE) 06/23/18 12:55 Urine Ketones Negative (NEGATIVE) 06/23/18 12:55 Urine Occult Blood Negative (NEGATIVE) 06/23/18 12:55 Urine Nitrite Negative (NEGATIVE) 06/23/18 12:55 Urine Bilirubin Negative (NEGATIVE) 06/23/18 12:55 Urine Urobilinogen Normal (NORMAL) 06/23/18 12:55 Ur Leukocyte Esterase 1+ (NEGATIVE) 06/23/18 12:55 Urine RBC 0-2 /HPF (NONE SEEN) 06/23/18 12:55 Urine WBC 0-2 /HPF (NONE SEEN) 06/23/18 12:55 Ur Squamous Epith Cells Few /HPF (NEGATIVE) 06/23/18 12:55 Urine Bacteria Negative /HPF (NEGATIVE) 06/23/18 12:55 Ur Culture Indicated? No/not indicated 06/23/18 12:55 XRAY XRAY Interpreted by: Radiologist XRAY Findings: REPORT ON RECORD NOTED AND DISCUSS WITH PATIENT. EKG [place]: Normal Rhythm: NSR Block: None Hypertrophy: None ST: Normal Instructions Instructions: Steps to Quit Smoking, [id number] Nonspecific Chest Pain Hypertension, Dmyq-eg-Path Dizziness, [id number] Type 2 Diabetes Mellitus, Diagnosis, Adult, [id number]
[2018-06-23] MEDS ORDERED: ANTIVERT TAB 25 MG PO ONE (10:53)
[2018-06-23] MEDS ORDERED: ANTIVERT TAB 25 MG ONE (10:55)
[2018-06-23] MEDS ORDERED: PROVENTIL NEB TX 0.083% 2.5MG/ 3ML IN PRN (12:27)
[2018-06-23] MEDS: NS 1000 ML 1,000 ML IV SCH (13:01)
[2018-06-23] MEDS: LIPITOR TAB 40 MG PO SCH ×2 (13:01→21:22)
[2018-06-23] MEDS: PLAQUENIL PO SCH ×2 (13:01→13:13)
[2018-06-23] MEDS ORDERED: ZANTAC ONE (13:05)
[2018-06-23] MEDS ORDERED: PriLOSEC ONE (13:06)
[2018-06-23] MEDS ORDERED: GLUCOPHAGE ONE ×2 (13:06→19:34)
[2018-06-23] MEDS ORDERED: NEURONTIN CAP 100 MG ONE (13:06)
[2018-06-23] MEDS ORDERED: ZESTRIL TAB 40 MG ONE (13:06)
[2018-06-23 13:12] LABS: BILIRUBIN,URINE NEGATIVE (NEGATIVE); BLOOD/HEMOGLOBIN,URINE NEGATIVE (NEGATIVE); GLUCOSE, URINE NEGATIVE (NEGATIVE); KETONES,URINE NEGATIVE (NEGATIVE); LEUKOCYTE ESTERASE ,URINE 1+ (NEGATIVE); NITRITES,URINE NEGATIVE (NEGATIVE); PROTEIN,URINE NEGATIVE (NEGATIVE); UROBILINOGEN,URINE NORMAL (NORMAL)
[2018-06-23] MEDS: PriLOSEC PO SCH ×2 (13:13→21:25)
[2018-06-23] MEDS: GLUCOPHAGE PO SCH ×2 (13:13→21:25)
[2018-06-23] MEDS: NEURONTIN CAP 100 MG PO SCH (13:14)
[2018-06-23] MEDS: ZESTRIL TAB 40 MG PO SCH (13:14)
[2018-06-23] MEDS: ZANTAC PO SCH ×2 (13:14→21:25)
[2018-06-23 13:15] LABS: APPEARANCE,URINE CLEAR (CLEAR); COLOR,URINE YELLOW (YELLOW)
[2018-06-23 13:18] VITALS: BMI 21.7
[2018-06-23 13:24] LABS: BACTERIA,URINE NEGATIVE /HPF (NEGATIVE); RBC,URINE 0-2 /HPF (NONE SEEN); SQUAMOUS EPITHELIAL CELL,UR FEW /HPF (NEGATIVE)
[2018-06-23 14:22] LABS: CKMB % 8.2 % (<4); CREATINE KINASE 28 Units/L (26-192); CREATINE KINASE MB 2.3 ng/mL (0-4.0); TROPONIN I < 0.02 ng/mL (0-1.5)
--- NOTE | 2018-06-23 18:30 | DR.H&P ---
H&P - History & Physical for Day of: H&P Date: 06/23/18 - Chief Complaint Chief Complaint: DIZZINESS - History of Present Illness History of Present Illness: 77 BF ER ADMISSION AFTER PRESENTING WITH CO EPISODE OF DIZZINESS ON FRIDAY. PT HAS HX OF SVT, WITH SIMILAR SYMPTOMS. PT HAS PMH OF DM, COPD, RA, HTN. PT HAD CT HEAD IN ER WITHOUT ACUTE FINDINGS. PT DENIES CP OR SOB. PT ADMITTED FOR EVALUATION OF DIZZINESS, R/O CVA - Past Medical History Past Medical History: Hypertension, Diabetes - Past Surgical History Surgical History: Appendectomy - Family History Family Medical History: Coronary Artery Disease - Social History Does patient currently use any type of tobacco product: Yes Have you used tobacco products in the last 12 months: Yes Type of Tobacco Use: Cigarettes Does any household member use tobacco: No Alcohol Use: None Drug Use: None - Medications Home Medications: No Known Drug Allergies Allergy (Verified 03/21/17 12:20) CONTINUE taking the following medications amlodipine 5 mg PO HS 06/23/18 [History] atorvastatin 40 mg PO QHS 06/23/18 [History] chlordiazepoxide HCl 25 mg PO Q8H PRN 06/23/18 [History] hydroxychloroquine 200 mg PO QDAY 06/23/18 [History] metformin 500 mg PO BID 06/23/18 [History] omeprazole 20 mg PO BID 06/23/18 [History] ranitidine HCl 150 mg PO BID 06/23/18 [History] - Review of Systems Constitutional: Weakness Eyes: No Symptoms Reported ENT: No Symptoms Reported Respiratory: SOB with Excertion Cardiovascular: No Symptoms Reported. denies: Edema Gastrointestinal: No Symptoms Reported Genitourinary: No Symptoms Reported Musculoskeletal: Back Pain Skin: No Symptoms Reported Neurological: Other (DIZZINESS) - Physical Exam Vital Signs: Temperature 98.1 F Pulse Rate [Left Brachial] 62 Pulse Rate 80 Respiratory Rate 20 Blood Pressure [Left Arm] 146/69 Blood Pressure [Right Arm] 126/64 Blood Pressure 139/75 O2 Sat by Pulse Oximetry 96 Oriented: Normal Eyes: Normal Ear: Normal Nose: Normal Throat: Normal Respiratory: RLL Diminished, LLL Diminished Cardiovascular: Normal. negative: Edema : Normal Auscultation: Bowel Sounds: Normal Palpation: Normal Tenderness: Normal Skin: Decreased Turgur Musculoskeletal: Back:Lumbar Psychiatric: Anxiety Affect: Anxious Speech Pattern: Clear, Appropriate - Assessment/Plan (1) Syncope, near Status: Acute Plan: ADMIT, CT HEAD ON ADMISSION. CE AND EKG. BS CONTROL, IV HYDRATION. RESP CONSULT, CAROTID ARTERY CTA (2) Hypertension Status: Acute (3) Dizziness Status: Acute (4) DJD (degenerative joint disease) Status: Acute (5) Diabetes mellitus Status: Acute - Allergies Allergies/Adverse Reactions: Allergies Allergy/AdvReac Type Severity Reaction Status Date / Time No Known Drug Allergies Allergy Verified 03/21/17 12:20
[2018-06-23] MEDS ORDERED: NORCO 5/325 MG TAB PO PRN (18:31)
[2018-06-23] MEDS ORDERED: RESTORIL CAP 15 MG PO PRN (18:41)
[2018-06-23] MEDS: LOVENOX INJ 40 MG SYR SC SCH (19:16)
[2018-06-23 20:21] LABS: CKMB % 3.7 % (<4); CREATINE KINASE 27 Units/L (26-192); CREATINE KINASE MB < 1.0 ng/mL (0-4.0); TROPONIN I 0.02 ng/mL (0-1.5)
[2018-06-23 20:47] LABS: IRON 33 ug/dL (50-175)
[2018-06-23] MEDS ORDERED: NORVASC TAB 5 MG PO SCH (21:00)
[2018-06-23] MEDS ORDERED: COLACE CAP 100 MG PO SCH (21:00)
[2018-06-23] MEDS ORDERED: NEURONTIN CAP 100 MG PO SCH (21:00)
[2018-06-24] MEDS: NS 1000 ML 1,000 ML IV SCH ×2 (02:04→13:20)
[2018-06-24 05:22] LABS: BASOPHILS % (AUTO) 0.2 % (0.2-1.0); EOSINOPHILS # (AUTO) 0.2 x10^3/uL (0.0-0.2); EOSINOPHILS % (AUTO) 3.4 % (0.9-2.9); HEMATOCRIT 39.1 % (36.0-47.0); LYMPHOCYTES # (AUTO) 3.5 X10^3/uL (1.3-2.9); LYMPHOCYTES % (AUTO) 54.6 % (21.0-51.0); MEAN CORPUSCULAR HEMOGLOBIN 30.1 pg (27.0-34.0); MEAN CORPUSCULAR HGB CONC 33.4 g/dL (33.0-35.0); MEAN CORPUSCULAR VOLUME 90.2 fL (80.0-100.0); MEAN PLATELET VOLUME 9.1 fL (7.4-11.0); MONOCYTES # (AUTO) 0.4 x10^3/uL (0.3-0.8); MONOCYTES % (AUTO) 6.8 % (0.0-13.0); NEUTROPHILS # (AUTO) 2.2 x10^3/uL (2.2-4.8); PLATELET COUNT 163 X10^3/uL (150.0-450.0); RED BLOOD COUNT 4.33 X10^6/uL (3.5-5.4); RED CELL DISTRIBUTION WIDTH 15.3 % (11.6-16.5); WHITE BLOOD COUNT 6.3 X10^3/uL (3.6-10.0)
[2018-06-24 05:27] LABS: ALANINE AMINOTRANSFERASE 17 Units/L (12-78); ALBUMIN 2.5 g/dL (3.4-5.0); ALKALINE PHOSPHATASE 102 Units/L (46-116); ASPARTATE AMINO TRANSFERASE 19 Units/L (15-37); BLOOD UREA NITROGEN 13 mg/dL (7-18); CALCIUM 9.3 mg/dL (8.5-10.1); CHLORIDE 107 mmol/L (98-107); COR CA(FOR HYPOALB) 10.5 mg/dL (8.5-10.1); CREATININE 0.65 mg/dL (0.55-1.02); SODIUM 141 mmol/L (136-145); TOTAL PROTEIN 6.3 g/dL (6.4-8.2); eGFR NON BLACK RACES > 60 (>60)
[2018-06-24] MEDS: ZANTAC PO SCH (08:40)
[2018-06-24] MEDS: PriLOSEC PO SCH (08:40)
[2018-06-24] MEDS: PLAQUENIL PO SCH (08:40)
[2018-06-24] MEDS: ZESTRIL TAB 40 MG PO SCH (08:40)
[2018-06-24] MEDS: LOVENOX INJ 40 MG SYR SC SCH (08:40)
[2018-06-24] MEDS: NEURONTIN CAP 100 MG PO SCH (08:40)
[2018-06-24] MEDS ORDERED: ZITHROMAX INJ 500 MG VIAL 500 MG in NS 250 ML IV 250 ML IV SCH (11:04)
--- NOTE | 2018-06-24 15:27 | CT ---
HISTORY: Dizziness. Study: CTA carotids with/without contrast Comparison: CT head dated June 23, 2018. Technique: Multiple axial images of the carotid arteries before and after the administration of IV contrast. Sagittal and coronal reformats were performed and reviewed. 3D reformats/MIP images were also performed. Dose reduction techniques including Automated Exposure Control (AEC) and adjustment of mA and kV were utilized. Findings: The visualized portions of the posterior fossa and orbits are unremarkable in appearance. The parotid glands, submandibular glands, and thyroid gland are unremarkable in their contrast appearance. The carotid space on the right and left is unremarkable. No mass or significant lymphadenopathy can be identified. The prevertebral and paraspinous regions are unremarkable. The nasopharynx, oropharynx, hypopharynx are unremarkable. The larynx appears symmetric. Moderate atherosclerotic vascular calcifications and mural thrombus at the left carotid bulb/proximal left internal carotid artery with approximately 50% stenosis of the proximal left internal carotid artery. Mild atherosclerotic vascular calcifications of the right carotid bulb/proximal right internal carotid artery without significant stenosis. Other areas of scattered vascular calcification without evidence of significant stenosis. Degenerative changes of the spine. No aggressive osseous lesions. Moderate to severe centrilobular and paraseptal emphysematous changes of the lung apices. IMPRESSION: 1. Approximately 50% stenosis of the proximal left internal carotid artery. 2. No significant stenosis of the right internal carotid artery. Reported By:
[2018-06-24 16:05] VITALS: BP 135/60
== END 2018-06-24 16:55 | disposition home or self-care (01) ==
LOC: ER 08:03 → MED/SURG 08:03
PROVIDERS: ADMIT Internal Medicine; ATTEND Internal Medicine
DX: I25.10 Atherosclerotic heart disease of native coronary artery without angina pectoris; R55 Syncope and collapse; R26.89 Other abnormalities of gait and mobility; I10 Essential (primary) hypertension; J44.9 Chronic obstructive pulmonary disease, unspecified; R42 Dizziness and giddiness; E11.65 Type 2 diabetes mellitus with hyperglycemia; Z79.899 Other long term (current) drug therapy; E78.2 Mixed hyperlipidemia
CPT/HCPCS: 36415; 70450; 70498; 71010; 71045; 80053; 81001; 82550; 82553; 82607; 82728; 82746; 83540; 84466; 84484; 85025; 93005; 96365; 96367; 96372; 96374; 97166; 99284; A4222; G0378; J0456; J1650; J7030; J7050

== ENCOUNTER 2018-06-30 21:54 | Observation (INO) ==
[2018-06-30 22:14] LABS: BASOPHILS % (AUTO) 0.3 % (0.2-1.0); EOSINOPHILS # (AUTO) 0.2 x10^3/uL (0.0-0.2); EOSINOPHILS % (AUTO) 2.7 % (0.9-2.9); HEMATOCRIT 42.4 % (36.0-47.0); HEMOGLOBIN 14.3 g/dL (12.0-16.0); LYMPHOCYTES # (AUTO) 2.8 X10^3/uL (1.3-2.9); LYMPHOCYTES % (AUTO) 40.4 % (21.0-51.0); MEAN CORPUSCULAR HEMOGLOBIN 30.2 pg (27.0-34.0); MEAN CORPUSCULAR HGB CONC 33.8 g/dL (33.0-35.0); MEAN CORPUSCULAR VOLUME 89.5 fL (80.0-100.0); MEAN PLATELET VOLUME 8.7 fL (7.4-11.0); MONOCYTES # (AUTO) 0.5 x10^3/uL (0.3-0.8); MONOCYTES % (AUTO) 7.4 % (0.0-13.0); NEUTROPHILS # (AUTO) 3.3 x10^3/uL (2.2-4.8); NEUTROPHILS % (AUTO) 49.2 % (42.0-75.0); PLATELET COUNT 181 X10^3/uL (150.0-450.0); RED BLOOD COUNT 4.73 X10^6/uL (3.5-5.4); RED CELL DISTRIBUTION WIDTH 15.5 % (11.6-16.5); WHITE BLOOD COUNT 6.8 X10^3/uL (3.6-10.0)
[2018-06-30] MEDS ORDERED: MORPHINE SULFATE INJ 2 MG INJ IVP ONE (22:16)
[2018-06-30] MEDS ORDERED: MORPHINE SULFATE INJ 2 MG INJ ONE (22:18)
[2018-06-30 22:30] LABS: BLOOD UREA NITROGEN 11 mg/dL (7-18); CALCIUM 9.5 mg/dL (8.5-10.1); CARBON DIOXIDE 22.5 mmol/L (21-32); CHLORIDE 102 mmol/L (98-107); COR NA(FOR HYPERGLY) 138 mmol/L (136-145); CREATININE 0.84 mg/dL (0.55-1.02); SODIUM 138 mmol/L (136-145); TROPONIN I 0.02 ng/mL (0-1.5); eGFR NON BLACK RACES > 60 (>60)
[2018-06-30 22:35] LABS: ALANINE AMINOTRANSFERASE 18 Units/L (12-78); ALBUMIN 2.9 g/dL (3.4-5.0); ALKALINE PHOSPHATASE 102 Units/L (46-116); ASPARTATE AMINO TRANSFERASE 19 Units/L (15-37); CKMB % 3.3 % (<4); COR CA(FOR HYPOALB) 10.4 mg/dL (8.5-10.1); CREATINE KINASE 36 Units/L (26-192); CREATINE KINASE MB 1.2 ng/mL (0-4.0); TOTAL PROTEIN 6.9 g/dL (6.4-8.2)
--- NOTE | 2018-06-30 22:38 | RAD ---
Chest, one view Indication: Chest pain Comparison: 06/23/2018 Findings: Heart is normal in size. Lungs are hyperinflated with coarsened interstitial markings, suggestive for COPD. No focal infiltrate or significant effusion is identified. No pneumothorax. Impression: Findings suggestive for COPD without acute cardiopulmonary abnormality. Reported By:
--- NOTE | 2018-06-30 22:40 | DR.CP ---
HPI Time Seen Time Seen by Provider: 06/30/18 22:17 PCP Primary Care Physician: CULLEN Complaint Chief Complaint Doctor Comments: Patient presents with complaint of mid sternal chest pain/reflux ? lasting abut one hour.. She states that she could not tell if the pain was due to the burping or her chest.. She admits to GE Reflux. Pain level 9 and decreased to 5. She state that there diaphoresis of the scalp. She last saw her specification writer in April; she had a small which was not large enough for catherization. PMH DJD, SVT,DM,syncope, vertigo. Chief Complaint:: STATES CHEST PAIN X 1 HR THAT WAS 8/10 BUT IS NOW 5/10. Self Treatment fo Chief Complaint: N/A Source History Provided: Patient and EMS Mode of Arrival Mode of Arrival: EMS Timing Onset of Chief Complaint: 06/30/18 PMH PMH Past Medical History: Yes Past Medical History: Arthritis, Coronary Artery Disease, Diabetes, Hypertension and MS Past Medical History Comment: VERTIGO Past Surgical History: Yes Surgical History: Appendectomy and Other (cardiac catherization) Family History History of Family Medical Conditions: Yes Family Medical History: Diabetes Mellitus and Coronary Artery Disease Family Medical History Comment: STROKE Social History Does patient currently use any type of tobacco product: Yes Have you used tobacco products in the last 12 months: Yes Type of Tobacco Use: Cigarettes Does any household member use tobacco: No Alcohol Use: None Do you use any recreational Drugs:: No Lives With: Family Lives Where: Home infectious screening In the last 2 months have you had wt loss of >10#?: NO Have you had fever, night sweats or hemotysis?: No Have you traveled outside the country in the last 6 months?: No Isolation: Standard ROS Review of Systems Constitutional: No Symptoms Reported Eyes: No Symptoms Reported ENTM: No Symptoms Reported and Nose Congestion Respiratoy: No Symptoms Reported and Non-Productive Cough Cardiovascular: No Symptoms Reported Gastrointestinal/Abdominal: No Symptoms Reported Genitourinary: No Symptoms Reported Neurological: No Symptoms Reported Musculoskeletal: No Symptoms Reported Integumentary: No Symptoms Reported Hematologic/Lymphatic: No Symptoms Reported Endocrine: No Symptoms Reported All Other Systems: Reviewed and Negative PE Vitals Vitals: Pulse Rate 101 Respiratory Rate 22 Blood Pressure [Left Arm] 130/62 Blood Pressure [Right Arm] 135/60 Blood Pressure 106/58 O2 Sat by Pulse Oximetry 94 General Limitations: No Limitations General Appearance: Alert and In No Apparent Distress Head Head Exam: Normal Inspection, Atraumatic and Normocephalic Eyes Eye exam: Normal Appearance, PERRL and EOMI ENT ENT Exam: Normal Exam, Normal Oropharynx and Normal External Ear Exam Chest Chest Inspection: Normal Inspection and Symmetric Chest Wall Rise Respiratory Respiratory Exam: Normal Lung Sounds Bilat and Chest Wall Tenderness Respiratory Exam: Bilateral: Clear to Auscultation Cardiovascular Cardiovascular Exam: Regular Rate and Normal Rhythm Pulse: Normal and Radial Abdominal Exam Abdominal Exam: Normal Bowel Sounds and Soft Back Back Exam: Normal Inspection Neurologic Neurological Exam: Alert, Oriented X3 and CN II-XII Intact Psychiatric Psychiatric Exam: Normal Affect and Normal Mood Skin Skin Exam: Warm, Dry, Intact and Normal Color MDM Differential Diagnosis Differential Diagnosis: Angina, Chest Wall Pain, Costochondritis, Esophageal Reflux/Spasm, Gastritis, Myocardial Infarction and Pericarditis COURSE Treatment Treatment: Cardiac workup per protocol. Pain level decreased to 4 with morphine. Systolic BP 104, deferred NTG. Reevaluation 1st: Improved Consultation Called: 23:00 Consultation Comments: Contacted Dr. Martinez who agreed to admit for chest pain protocol ROR Labs Reviewed Laboratory Results Reviewed?: Yes Result Diagrams: 06/30/18 22:05 06/30/18 22:05 Laboratory: WBC 6.8 X10^3/uL (3.6-10.0) 06/30/18 22:05 RBC 4.73 X10^6/uL (3.5-5.4) 06/30/18 22:05 Hgb 14.3 g/dL (12.0-16.0) 06/30/18 22:05 Hct 42.4 % (36.0-47.0) 06/30/18 22:05 MCV 89.5 fL (80.0-100.0) 06/30/18 22:05 MCH 30.2 pg (27.0-34.0) 06/30/18 22:05 MCHC 33.8 g/dL (33.0-35.0) 06/30/18 22:05 RDW 15.5 % (11.6-16.5) 06/30/18 22:05 Plt Count 181 X10^3/uL (150.0-450.0) 06/30/18 22:05 MPV 8.7 fL (7.4-11.0) 06/30/18 22:05 Neut % (Auto) 49.2 % (42.0-75.0) 06/30/18 22:05 Lymph % (Auto) 40.4 % (21.0-51.0) 06/30/18 22:05 [place] % (Auto) 7.4 % (0.0-13.0) 06/30/18 22:05 Eos % (Auto) 2.7 % (0.9-2.9) 06/30/18 22:05 Baso % (Auto) 0.3 % (0.2-1.0) 06/30/18 22:05 Neut # (Auto) 3.3 x10^3/uL (2.2-4.8) 06/30/18 22:05 Lymph # (Auto) 2.8 X10^3/uL (1.3-2.9) 06/30/18 22:05 [place] # (Auto) 0.5 x10^3/uL (0.3-0.8) 06/30/18 22:05 Eos # (Auto) 0.2 x10^3/uL (0.0-0.2) 06/30/18 22:05 Baso # (Auto) 0.0 X10^3/uL (0.0-0.1) 06/30/18 22:05 Absolute Nucleated RBC 0.1 /100WBC 06/30/18 22:05 Sodium 138 mmol/L (136-145) 06/30/18 22:05 Corrected Sodium 138 mmol/L (136-145) 06/30/18 22:05 Potassium 3.7 mmol/L (3.5-5.1) 06/30/18 22:05 Chloride 102 mmol/L (98-107) 06/30/18 22:05 Carbon Dioxide 22.5 mmol/L (21-32) 06/30/18 22:05 BUN 11 mg/dL (7-18) 06/30/18 22:05 Creatinine 0.84 mg/dL (0.55-1.02) 06/30/18 22:05 Est GFR (MDRD) Af Amer > 60 (>60) 06/30/18 22:05 Est GFR (MDRD) Non-Af > 60 (>60) 06/30/18 22:05 Glucose 111 mg/dL (65-99) H 06/30/18 22:05 Calcium 9.5 mg/dL (8.5-10.1) 06/30/18 22:05 Corrected Calcium 10.4 mg/dL (8.5-10.1) H 06/30/18 22:05 Total Bilirubin 0.40 mg/dL (0.2-1.0) 06/30/18 22:05 AST 19 Units/L (15-37) 06/30/18 22:05 ALT 18 Units/L (12-78) 06/30/18 22:05 Alkaline Phosphatase 102 Units/L (46-116) 06/30/18 22:05 Creatine Kinase 36 Units/L (26-192) 06/30/18 22:05 CK-MB (CK-2) 1.2 ng/mL (0-4.0) 06/30/18 22:05 CK/CKMB % Calc 3.3 % (<4) 06/30/18 22:05 Troponin I 0.02 ng/mL (0-1.5) 06/30/18 22:05 Total Protein 6.9 g/dL (6.4-8.2) 06/30/18 22:05 Albumin 2.9 g/dL (3.4-5.0) L 06/30/18 22:05 Globulin 4.0 g/dL (2.5-4.5) 06/30/18 22:05 Albumin/Globulin Ratio 0.7 Ratio (1.1-2.1) L 06/30/18 22:05 Other Results Comments: Chest X Ray: Heart is normal in size. Lungs are hyperinflated with coarsened interstitial markings, suggestive for COPD. No focal infiltrate or significant effusion is identified. No pneumothorax. Impression: Findins suggestive for COPD without acute cardiopulmonary abnormality XRAY XRAY Interpreted by: Radiologist and Self
[2018-06-30] MEDS ORDERED: PROVENTIL NEB TX 0.083% 2.5MG/ 3ML IN PRN (23:42)
[2018-07-01 00:28] VITALS: BMI 21.4
[2018-07-01] MEDS: LIPITOR TAB 40 MG PO SCH ×2 (00:31→20:53)
[2018-07-01 04:31] LABS: CHOL/HDL RATIO 1.5 (0.0-5.0); CKMB % 6.5 % (<4); CREATINE KINASE MB 2.2 ng/mL (0-4.0); TROPONIN I 0.15 ng/mL (0-1.5)
[2018-07-01] MEDS ORDERED: GLUCOPHAGE ONE (05:52)
[2018-07-01] MEDS ORDERED: GLUCOPHAGE PO SCH (07:00)
[2018-07-01] MEDS ORDERED: NS 100 ML IV 100 ML ONE (08:21)
[2018-07-01] MEDS ORDERED: ZANTAC PO SCH (09:00)
[2018-07-01] MEDS: NEURONTIN CAP 100 MG PO SCH (09:02)
[2018-07-01] MEDS: ASPIRIN 81 MG CHEWTAB PO SCH (09:02)
[2018-07-01] MEDS: NORCO 5/325 MG TAB PO SCH ×2 (09:02→20:53)
[2018-07-01] MEDS: ZESTRIL TAB 40 MG PO SCH ×2 (09:02)
--- NOTE | 2018-07-01 09:30 | CT ---
HISTORY: Midsternal chest pain Study: CTA chest with contrast for pulmonary embolus Comparison: None Technique: Axial post-contrast images with coronal, sagittal, and three-dimensional maximum intensity projection images obtained and evaluated. Dose reduction procedures were used with mA/kv adjusted for body size. Findings: There is no evidence for acute pulmonary thromboembolic disease. Examination of the mediastinum demonstrated no evidence for mediastinal masses, enlarged mediastinal, or enlarged hilar adenopathy. Calcific atherosclerotic changes present in a nondilated thoracic aorta. No pleural effusions are identified. No chest wall or axillary abnormality is identified. Those portions of the upper abdominal organs visualized were within normal limits. Examination of the lung solis demonstrated changes of centrilobular emphysema in the upper lobes bilaterally. No alveolar infiltrates, areas of consolidation, nodules, masses, bronchiectasis or peribronchial thickening is identified. IMPRESSION: No evidence for acute pulmonary thromboembolic disease No acute alveolar infiltrates Mild changes of centrilobular emphysema upper lobes bilaterally Reported By:
[2018-07-01 10:37] LABS: CKMB % 5.1 % (<4); TROPONIN I 0.12 ng/mL (0-1.5)
--- NOTE | 2018-07-01 13:26 | DR.H&P ---
H&P - History & Physical for Day of: H&P Date: 06/30/18 - Chief Complaint Chief Complaint: chest pain - History of Present Illness History of Present Illness: 77 WF ER ADMISSION WITH CO CHEST PAIN, PT STATES IT WAS ACCOMPANIED BY SOB AND EXCESSIVE SWEATING. PT FELT WEAK. PT DOES CO INCREASED INDEGESTION AND [place] WITH "ACID COMING UP IN THROAT". PT HAS HX OF SVT, HAD TO BE TRANSFERRED TO [facility] ~2 MOS AGO AND HAD HEART CATH. PT ALSO HAS HTN, COPD AND RA. PT ADMITTED FOR SERIAL CE AND EKG, R/O AMI - Past Medical History Past Medical History: [place], Coronary Artery Disease, Hypertension, Diabetes, Arthritis - Past Surgical History Surgical History: Appendectomy - Family History Family Medical History: [place], Coronary Artery Disease - Social History Does patient currently use any type of tobacco product: Yes Have you used tobacco products in the last 12 months: Yes Type of Tobacco Use: Cigarettes Does any household member use tobacco: No Alcohol Use: None Drug Use: None - Medications Home Medications: No Known Drug Allergies Allergy (Verified 06/30/18 22:01) CONTINUE taking the following medications aspirin 81 mg PO QDAY 06/30/18 [History] etanercept [Enbrel SureClick] 1 ml SUBCUT WEEKLY 06/30/18 [History] hydrocodone-acetaminophen 1 tab PO BID 06/30/18 [History] - Review of Systems Constitutional: Weakness Eyes: No Symptoms Reported ENT: No Symptoms Reported Respiratory: Cough, Shortness of Breath, SOB with Excertion Cardiovascular: Chest Pain, Light Headedness Gastrointestinal: Nausea Genitourinary: No Symptoms Reported Musculoskeletal: Back Pain Skin: No Symptoms Reported Neurological: Weakness - Physical Exam Vital Signs: Temperature 97.7 F Pulse Rate [Left Dorsalis 78 Pedis] Pulse Rate [Radial] 76 Pulse Rate [Apical] 87 Pulse Rate 95 Respiratory Rate 18 Blood Pressure [Left Arm] 118/58 Blood Pressure [Right Arm] 135/60 Blood Pressure 108/53 O2 Sat by Pulse Oximetry 97 Oriented: Normal Eyes: Normal Ear: Normal Nose: Normal Throat: Normal Respiratory: RLL Diminished, LLL Diminished Cardiovascular: Normal. negative: Edema : Normal Auscultation: Bowel Sounds: Normal Palpation: Normal Tenderness: Epigastric Skin: Decreased Turgur Musculoskeletal: Back:Lumbar Psychiatric: Anxiety Affect: Anxious Speech Pattern: Clear, Appropriate - Assessment/Plan (1) Chest pain Status: Acute Plan: ADMIT, SERIAL CE EKG. SUPPLEMENTAL O2. BP AND BS CONTROL. VERIFY HOME MEDICATIONS. ASPIRIN, PLAVIX, STATIN THERAPY (2) Arthritis Status: Acute (3) GERD (gastroesophageal reflux disease) Status: Acute (4) Diabetes mellitus Status: Acute (5) Hypertension Status: Acute - Allergies Allergies/Adverse Reactions: Allergies Allergy/AdvReac Type Severity Reaction Status Date / Time No Known Drug Allergies Allergy Verified 06/30/18 22:01
--- NOTE | 2018-07-01 17:17 | PCM.PROG ---
Progress Note - Progress Note for Day of Date of Exam: 07/01/18 - Subjective Subjective: 77 WF ER ADMISSION WITH CHEST PAIN. PT RECENTLY HAD A HEART CATH WITHOUT SIGNIFICANT DISEASE. CATH REPORT REQUESTED FROM [facility]. PT HAD SERIAL CE, TROPIN INCREASED TO 0.15 ON 2ND SET. WILL OBTAIN CTA OF CHEST WITH CONTRAST AND REPEAT CE. PT STATES SHE IS HAVING NAUSEA, INDGESTION SYMPTOMS, NO CHEST PAIN THIS AM. ADDED PO PPI AND IV PEPCID. - Past Medical Family Social History Past Med/Fam/Surg Hx: No changes since H&P Allergies: Allergies No Known Drug Allergies Allergy (Verified 06/30/18 22:01) - Review of Systems ROS: No change since H&P - Vital Signs and I&O's Vital Signs: Temperature 98.0 F Pulse Rate [Left Dorsalis 74 Pedis] Pulse Rate [Radial] 76 Pulse Rate [Apical] 87 Pulse Rate 95 Respiratory Rate 20 Blood Pressure [Left Arm] 148/66 Blood Pressure [Right Arm] 135/60 Blood Pressure 108/53 O2 Sat by Pulse Oximetry 99 Intake and Output: Intake & Output 06/29/18 06/30/18 07/01/18 07/02/18 11:59 11:59 11:59 11:59 Intake Total 460 / 460 Balance 460 / 460 - Physical Exam Oriented: Normal Eyes: Normal Ear: Normal Nose: Normal Throat: Normal Cardiovascular: Normal. negative: Edema : Normal Auscultation: Bowel Sounds: Normal Tenderness: Epigastric Skin: Decreased Turgur Musculoskeletal: Back:Lumbar Psychiatric: Anxiety Affect: Anxious Speech Pattern: Clear, Appropriate - Laboratory and Diagnostics Result Diagrams: 06/30/18 22:05 06/30/18 22:05 Labs: Laboratory WBC 6.8 X10^3/uL (3.6-10.0) 06/30/18 22:05 RBC 4.73 X10^6/uL (3.5-5.4) 06/30/18 22:05 Hgb 14.3 g/dL (12.0-16.0) 06/30/18 22:05 Hct 42.4 % (36.0-47.0) 06/30/18 22:05 MCV 89.5 fL (80.0-100.0) 06/30/18 22:05 MCH 30.2 pg (27.0-34.0) 06/30/18 22:05 MCHC 33.8 g/dL (33.0-35.0) 06/30/18 22:05 RDW 15.5 % (11.6-16.5) 06/30/18 22:05 Plt Count 181 X10^3/uL (150.0-450.0) 06/30/18 22:05 MPV 8.7 fL (7.4-11.0) 06/30/18 22:05 Neut % (Auto) 49.2 % (42.0-75.0) 06/30/18 22:05 Lymph % (Auto) 40.4 % (21.0-51.0) 06/30/18 22:05 [place] % (Auto) 7.4 % (0.0-13.0) 06/30/18 22:05 Eos % (Auto) 2.7 % (0.9-2.9) 06/30/18 22:05 Baso % (Auto) 0.3 % (0.2-1.0) 06/30/18 22:05 Neut # (Auto) 3.3 x10^3/uL (2.2-4.8) 06/30/18 22:05 Lymph # (Auto) 2.8 X10^3/uL (1.3-2.9) 06/30/18 22:05 [place] # (Auto) 0.5 x10^3/uL (0.3-0.8) 06/30/18 22:05 Eos # (Auto) 0.2 x10^3/uL (0.0-0.2) 06/30/18 22:05 Baso # (Auto) 0.0 X10^3/uL (0.0-0.1) 06/30/18 22:05 Absolute Nucleated RBC 0.1 /100WBC 06/30/18 22:05 Sodium 138 mmol/L (136-145) 06/30/18 22:05 Corrected Sodium 138 mmol/L (136-145) 06/30/18 22:05 Potassium 3.7 mmol/L (3.5-5.1) 06/30/18 22:05 Chloride 102 mmol/L (98-107) 06/30/18 22:05 Carbon Dioxide 22.5 mmol/L (21-32) 06/30/18 22:05 BUN 11 mg/dL (7-18) 06/30/18 22:05 Creatinine 0.84 mg/dL (0.55-1.02) 06/30/18 22:05 Est GFR (MDRD) Af Amer > 60 (>60) 06/30/18 22:05 Est GFR (MDRD) Non-Af > 60 (>60) 06/30/18 22:05 Glucose 111 mg/dL (65-99) H 06/30/18 22:05 POC Glucose (mg/dL) 160 mg/dL (65-99) H 07/01/18 15:42 Calcium 9.5 mg/dL (8.5-10.1) 06/30/18 22:05 Corrected Calcium 10.4 mg/dL (8.5-10.1) H 06/30/18 22:05 Total Bilirubin 0.40 mg/dL (0.2-1.0) 06/30/18 22:05 AST 19 Units/L (15-37) 06/30/18 22:05 ALT 18 Units/L (12-78) 06/30/18 22:05 Alkaline Phosphatase 102 Units/L (46-116) 06/30/18 22:05 Creatine Kinase 39 Units/L (26-192) 07/01/18 09:41 CK-MB (CK-2) 2.0 ng/mL (0-4.0) 07/01/18 09:41 CK/CKMB % Calc 5.1 % (<4) 07/01/18 09:41 Troponin I 0.12 ng/mL (0-1.5) 07/01/18 09:41 Total Protein 6.9 g/dL (6.4-8.2) 06/30/18 22:05 Albumin 2.9 g/dL (3.4-5.0) L 06/30/18 22:05 Globulin 4.0 g/dL (2.5-4.5) 06/30/18 22:05 Albumin/Globulin Ratio 0.7 Ratio (1.1-2.1) L 06/30/18 22:05 Triglycerides 63 mg/dL (0-150) 07/01/18 04:02 Cholesterol 71 mg/dL (0-200) 07/01/18 04:02 LDL Cholesterol, Calc 12 mg/dL (0-100) 07/01/18 04:02 HDL Cholesterol 46 mg/dL (40-60) 07/01/18 04:02 Cholesterol/HDL Ratio 1.5 (0.0-5.0) 07/01/18 04:02 - Plan (1) Chest pain Status: Acute Plan: SERIAL CE& EKGS, CTA CHEST WITH CONTRAST. SUPPLEMENTAL O2. BP AND BS CONTROL. VERIFY HOME MEDICATIONS. ASPIRIN, PLAVIX, STATIN THERAPY (2) Arthritis Status: Acute (3) GERD (gastroesophageal reflux disease) Status: Acute (4) Diabetes mellitus Status: Acute (5) Hypertension Status: Acute
[2018-07-01] MEDS ORDERED: NS 250 ML IV 250 ML ONE (18:12)
[2018-07-01] MEDS: PEPCID 20 MG IV PREMIX* 20 MG/50 ML BAG IV SCH ×2 (18:15→20:44)
[2018-07-01] MEDS: LEVSIN/MAALOX/LIDOC VISC PO SCH ×2 (18:16→20:42)
[2018-07-01] MEDS: PROTONIX TAB 40 MG PO SCH (18:17)
[2018-07-01] MEDS ORDERED: NORVASC TAB 5 MG PO SCH (21:00)
[2018-07-01] MEDS ORDERED: NEURONTIN CAP 300 MG PO SCH (21:00)
[2018-07-02 05:22] LABS: BASOPHILS % (AUTO) 0.1 % (0.2-1.0); EOSINOPHILS # (AUTO) 0.2 x10^3/uL (0.0-0.2); HEMATOCRIT 41.7 % (36.0-47.0); HEMOGLOBIN 13.9 g/dL (12.0-16.0); LYMPHOCYTES % (AUTO) 47.6 % (21.0-51.0); MEAN CORPUSCULAR HEMOGLOBIN 29.8 pg (27.0-34.0); MEAN CORPUSCULAR HGB CONC 33.4 g/dL (33.0-35.0); MEAN CORPUSCULAR VOLUME 89.3 fL (80.0-100.0); MEAN PLATELET VOLUME 8.8 fL (7.4-11.0); MONOCYTES # (AUTO) 0.5 x10^3/uL (0.3-0.8); MONOCYTES % (AUTO) 7.9 % (0.0-13.0); NEUTROPHILS # (AUTO) 2.6 x10^3/uL (2.2-4.8); NEUTROPHILS % (AUTO) 41.4 % (42.0-75.0); PLATELET COUNT 177 X10^3/uL (150.0-450.0); RED BLOOD COUNT 4.67 X10^6/uL (3.5-5.4); RED CELL DISTRIBUTION WIDTH 15.1 % (11.6-16.5); WHITE BLOOD COUNT 6.4 X10^3/uL (3.6-10.0)
[2018-07-02 05:29] LABS: ALANINE AMINOTRANSFERASE 16 Units/L (12-78); ALBUMIN 2.8 g/dL (3.4-5.0); ALKALINE PHOSPHATASE 106 Units/L (46-116); ASPARTATE AMINO TRANSFERASE 20 Units/L (15-37); BLOOD UREA NITROGEN 12 mg/dL (7-18); CALCIUM 9.2 mg/dL (8.5-10.1); CARBON DIOXIDE 26.8 mmol/L (21-32); CHLORIDE 105 mmol/L (98-107); COR CA(FOR HYPOALB) 10.2 mg/dL (8.5-10.1); COR NA(FOR HYPERGLY) 140 mmol/L (136-145); SODIUM 140 mmol/L (136-145); TOTAL PROTEIN 6.8 g/dL (6.4-8.2); eGFR NON BLACK RACES > 60 (>60)
[2018-07-02 08:49] LABS: CKMB % 3.5 % (<4); CREATINE KINASE MB 1.3 ng/mL (0-4.0); TROPONIN I 0.04 ng/mL (0-1.5)
[2018-07-02] MEDS: LEVSIN/MAALOX/LIDOC VISC PO SCH (08:59)
[2018-07-02] MEDS: ZESTRIL TAB 40 MG PO SCH (08:59)
[2018-07-02] MEDS: PROTONIX TAB 40 MG PO SCH (08:59)
[2018-07-02] MEDS: PEPCID 20 MG IV PREMIX* 20 MG/50 ML BAG IV SCH (08:59)
[2018-07-02] MEDS: NEURONTIN CAP 100 MG PO SCH (08:59)
[2018-07-02] MEDS: ASPIRIN 81 MG CHEWTAB PO SCH (08:59)
[2018-07-02] MEDS: NORCO 5/325 MG TAB PO SCH (09:00)
[2018-07-02 13:11] VITALS: BP 110/53
[2018-07-03] MEDS ORDERED: ETANERCEPT subcut SCH (12:00)
== END 2018-07-02 12:20 | disposition home or self-care (01) ==
LOC: ER 21:55 → MED/SURG 21:55
PROVIDERS: ADMIT Internal Medicine; ATTEND Internal Medicine
DX: K21.9 Gastro-esophageal reflux disease without esophagitis; M19.90 Unspecified osteoarthritis, unspecified site; R11.0 Nausea; R94.31 Abnormal electrocardiogram [ECG] [EKG]; I10 Essential (primary) hypertension; R07.89 Other chest pain; R06.02 Shortness of breath
CPT/HCPCS: 36415; 71010; 71045; 71275; 80053; 80061; 82550; 82553; 84484; 85025; 93005; 94760; 96365; 96374; 99284; A4216; A4222; S0028; G0378; J2270; J7050

== ENCOUNTER 2021-11-19 14:00 | Observation (INO) ==
[2021-11-19 16:52] LABS: BASOPHILS % (AUTO) 0.7 % (0.2-1.0); EOSINOPHILS # (AUTO) 0.3 x10^3/uL (0.0-0.2); EOSINOPHILS % (AUTO) 5.8 % (0.9-2.9); HEMATOCRIT 36.8 % (36.0-47.0); HEMOGLOBIN 12.2 g/dL (12.0-16.0); LYMPHOCYTES # (AUTO) 1.8 X10^3/uL (1.3-2.9); LYMPHOCYTES % (AUTO) 38.6 % (21.0-51.0); MEAN CORPUSCULAR HEMOGLOBIN 27.4 pg (27.0-34.0); MEAN CORPUSCULAR HGB CONC 33.1 g/dL (33.0-35.0); MEAN CORPUSCULAR VOLUME 82.8 fL (80.0-100.0); MONOCYTES # (AUTO) 0.4 x10^3/uL (0.3-0.8); MONOCYTES % (AUTO) 8.2 % (0.0-13.0); NEUTROPHILS # (AUTO) 2.2 x10^3/uL (2.2-4.8); NEUTROPHILS % (AUTO) 46.7 % (42.0-75.0); RED BLOOD COUNT 4.45 X10^6/uL (3.5-5.4); RED CELL DISTRIBUTION WIDTH 15.9 % (11.6-16.5); WHITE BLOOD COUNT 4.6 X10^3/uL (3.6-10.0)
[2021-11-19 16:58] LABS: ALANINE AMINOTRANSFERASE 6 Units/L (12-78); ALBUMIN 2.5 g/dL (3.4-5.0); ALKALINE PHOSPHATASE 122 Units/L (46-116); ASPARTATE AMINO TRANSFERASE 17 Units/L (15-37); BLOOD UREA NITROGEN 10 mg/dL (7-18); CALCIUM 8.7 mg/dL (8.5-10.1); CARBON DIOXIDE 29.5 mmol/L (21-32); CHLORIDE 102 mmol/L (98-107); COR CA(FOR HYPOALB) 9.9 mg/dL (8.5-10.1); CREATININE 0.69 mg/dL (0.55-1.02); MAGNESIUM 1.5 mg/dL (1.7-2.9); SODIUM 137 mmol/L (136-145); TOTAL PROTEIN 6.7 g/dL (6.4-8.2); eGFR NON BLACK RACES > 60 (>60)
[2021-11-19] MEDS ORDERED: PATIENT'S HOME MEDICATION (Oxycodone-Acetaminophen 10-325 mg tablet) PO SCH (17:30)
[2021-11-19] MEDS ORDERED: PROVENTIL NEB TX 0.083% 2.5MG/ 3ML NEB SCH (18:00)
[2021-11-19] MEDS: PROTONIX INJ 40 MG VIAL IVP SCH (18:03)
[2021-11-19] MEDS: SOLU-Medrol 40 MG VIAL IVP SCH ×3 (18:03→22:04)
[2021-11-19] MEDS: TORADOL 15 MG VIAL IVP PRN (18:03)
--- NOTE | 2021-11-19 18:10 | DR.H&P ---
H&P - History & Physical for Day of: H&P Date: 11/19/21 - Chief Complaint Chief Complaint: SEVERE PAIN IN LOWER BACK AND HIPS, CCC - History of Present Illness History of Present Illness: PT IS 81 BF DIRECT ADMIT FROM DR CORTEZ OFFICE WITH CO SEVERE LOWER BACK PAIN AND PAIN IN HIPS. PT DENIES NEW INJURY OR FALL. PT REPORTS SHE HAD CCC AND WAS SEEN IN ER ON FRIDAY FOR CHEST PAIN. PT REPORTS TAKING PAIN MEDICATION WITHOUT IMPROVEMENT. PT HAS PMH OF RA, CAD, DM, HTN, COPD. PT REPORTS RA FLARE. PT ADMITTED FOR TREATMENT AND EVALUATION OF ACUTE ILLNESS. - Past Medical History Past Medical History: [place], Coronary Artery Disease, Hypertension, Diabetes, Arthritis - Past Surgical History Surgical History: Appendectomy, Ortho Surgery - Family History Family Medical History: [place], Coronary Artery Disease - Social History Does patient currently use any type of tobacco product: Yes Have you used tobacco products in the last 12 months: Yes Type of Tobacco Use: Cigarettes Alcohol Use: None Drug Use: None - Medications Home Medications: No Known Drug Allergies Allergy (Verified 02/26/21 13:31) CONTINUE taking the following medications budesonide-formoterol HFA 160 mcg-4.5 mcg/actuation aerosol inhaler (Symbicort) 2 puff inhalation BID 11/19/21 [History] gabapentin 400 mg capsule 1 cap PO TID 11/19/21 [History] lisinopril 30 mg tablet 1 tab PO QDAY blood pressure 11/19/21 [History] oxycodone-acetaminophen 10 mg-325 mg tablet 1 tab PO TID PRN 11/19/21 [History] pantoprazole 40 mg tablet,delayed release 1 tab PO BID 11/19/21 [History] - Review of Systems Constitutional: Weakness, Malaise Eyes: No Symptoms Reported ENT: No Symptoms Reported Respiratory: Cough, Shortness of Breath, SOB with Excertion, Wheezing Cardiovascular: Chest Pain Gastrointestinal: Nausea, Other (POOR APPETITE) Genitourinary: Frequency Musculoskeletal: Shoulder Pain, Back Pain, Leg Pain Skin: No Symptoms Reported Neurological: Weakness - Physical Exam Vital Signs: Temperature 98.3 F Pulse Rate [Left Radial] 70 Respiratory Rate 18 Blood Pressure [Left Arm] 181/73 O2 Sat by Pulse Oximetry 98 Oriented: Normal Eyes: Normal Ear: Normal Nose: Normal Throat: Normal Respiratory: Rhonchi Throughout, RLL Diminished, LLL Diminished Cardiovascular: Normal. negative: Edema : Normal Auscultation: Bowel Sounds: Normal Palpation: Normal Tenderness: Normal Skin: Decreased Turgur Musculoskeletal: Right, Left, Hip, Back:Thoracic, Back:Lumbar, Tender Psychiatric: Anxiety Affect: Anxious Speech Pattern: Clear, Appropriate - Assessment/Plan (1) Rheumatoid arthritis flare Status: Acute Plan: ADMIT, CXR AND EKG ON ADMISSION. CARDIAC ENZYMES AND BP CONTROL. IV PROTONIX, PAIN CONTROL. CRP ON ADMISSION, URINE CULTURE. RESP CONSULT, CT L SPINE AND PELVIS. VERIFY HOME MEDICATION (2) Chest pain Status: Acute (3) COPD exacerbation Status: Acute (4) DJD (degenerative joint disease) Status: Acute (5) Diabetes mellitus Status: Acute (6) Hypertension Status: Acute (7) Atypical chest pain Status: Acute - Allergies Allergies/Adverse Reactions: Allergies Allergy/AdvReac Type Severity Reaction Status Date / Time No Known Drug Allergies Allergy Verified 02/26/21 13:31
[2021-11-19] MEDS ORDERED: NS 100 ML IV 100 ML ONE (18:15)
[2021-11-19] MEDS: ROCEPHIN VIAL 1 GRAM 1 G in NS 100 ML IV 100 ML IV SCH (18:29)
[2021-11-19] MEDS: ZESTRIL TAB 10 MG PO SCH (18:29)
[2021-11-19] MEDS ORDERED: PULMICORT NEB TX 0.5 MG NEB ONE (19:45)
[2021-11-19 20:24] LABS: BILIRUBIN,URINE NEGATIVE (NEGATIVE); BLOOD/HEMOGLOBIN,URINE 3+ (NEGATIVE); GLUCOSE, URINE NEGATIVE (NEGATIVE); KETONES,URINE NEGATIVE (NEGATIVE); LEUKOCYTE ESTERASE ,URINE 1+ (NEGATIVE); NITRITES,URINE NEGATIVE (NEGATIVE); PROTEIN,URINE 1+ (NEGATIVE); UROBILINOGEN,URINE 1+ (NORMAL)
[2021-11-19 20:29] LABS: APPEARANCE,URINE CLEAR (CLEAR); COLOR,URINE DARK YELLOW (YELLOW)
[2021-11-19 20:30] LABS: BACTERIA,URINE NEGATIVE /HPF (NEGATIVE); SQUAMOUS EPITHELIAL CELL,UR FEW /HPF (NEGATIVE)
[2021-11-19] MEDS: PULMICORT NEB TX 0.5 MG NEB SCH (21:00)
[2021-11-19] MEDS ORDERED: PATIENT'S HOME MEDICATION (Budesonide-Formoterol [Symbicort] 160-4.5 mcg/actuation HFA aer IN SCH (21:00)
[2021-11-19] MEDS: XOPENEX 1.25 MG/3 ML NEBULE NEB PRN (21:00)
[2021-11-19] MEDS: LOVENOX INJ 40 MG SYR SC SCH (21:59)
[2021-11-19] MEDS: ROXICODONE TAB 5 MG PO SCH (22:02)
[2021-11-19] MEDS: PERCOCET TAB 5/325 MG PO SCH (22:02)
[2021-11-19] MEDS: NEURONTIN CAP 400 MG PO SCH (22:03)
[2021-11-19] MEDS: MAGNESIUM SULFATE 1 GRAM/100 mL PREMIX 1 G/100 ML BAG IV PRN (22:12)
--- NOTE | 2021-11-19 22:47 | RAD ---
PROCEDURE: Chest X-ray 1 View .HISTORY: COPD .TECHNIQUE: AP view .COMPARISON: 11/13/2021.TECHNICAL QUALITY: Satisfactory .FINDINGS:Normal size heart .Mediastinum and hilar regions show no masses or lymphadenopathy .Normal central vascularity .No pulmonary consolidation, masses, pleural fluid, or pneumothorax. Hyper expansion and hyperlucency of the lungs consistent with emphysema.No acute bony abnormality .IMPRESSION:1. COPD.2. No other evidence of active disease.Electronically signed by: Jay Alvarado (Nov 19, 2021 22:45:53)
--- NOTE | 2021-11-19 22:51 | RAD ---
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 No acute osseous abnormality identified.2. Degenerative disc and joint changes as described above.3. Atherosclerotic changes to the abdominal aorta with aneurysmal dilatation up to 3.4 cm.Electronically signed by: Kendall Laura (Nov 19, 2021 22:50:06)
--- NOTE | 2021-11-19 23:06 | CT ---
PROCEDURE: CT Pelvis without Contrast .HISTORY: intractable back/hip pain .TECHNIQUE: Axial images were performed through the pelvis without the administration of IV contrast with multiplanar reformations . Oral contrast was not administered . Dose reduction techniques including Automated Exposure Control (AEC) and adjustment of mA and kV were utilized .COMPARISON: None .TECHNICAL QUALITY: Satisfactory .FINDINGS:No bony fracture or dislocation.Diffuse demineralization of bone.Mild osteoarthritic changes both hips with spur formation.No lytic or blastic lesions.Bilateral sacroiliac joint arthrosis.5.1 cm soft tissue mass left pelvis atypical for patient of this age in could be related to ovarian mass and pelvic ultrasound recommended. Small amount of fluid in the cul de sac atypical for patient's age with the etiology not apparent from the study. Small calcified fibroids involving the uterus.Some injection granulomas both buttocks in subcutaneous fat with calcifications.IMPRESSION:1. No acute bony abnormality.2. Diffuse demineralization of bone.3. Osteoarthritic changes as described above.4. Left adnexal mass and pelvic ultrasound recommended. Ovarian neoplasm should be excluded.5. Small amount of fluid in the cul de sac atypical for patient's age with etiology not apparent from the study.6. Small calcified uterine fibroids.Electronically signed by: Jay Alvarado (Nov 19, 2021 23:04:45)
[2021-11-20] MEDS: MAGNESIUM SULFATE 1 GRAM/100 mL PREMIX 1 G/100 ML BAG IV PRN ×3 (00:31→14:40)
[2021-11-20] MEDS: SOLU-Medrol 40 MG VIAL IVP SCH ×3 (05:14→21:03)
[2021-11-20] MEDS: PERCOCET TAB 5/325 MG PO SCH ×5 (05:22→21:04)
[2021-11-20] MEDS: NEURONTIN CAP 400 MG PO SCH ×3 (05:22→21:02)
[2021-11-20] MEDS: ROXICODONE TAB 5 MG PO SCH ×5 (05:23→21:03)
[2021-11-20] MEDS: XOPENEX 1.25 MG/3 ML NEBULE NEB PRN ×2 (08:10→20:52)
[2021-11-20] MEDS: PULMICORT NEB TX 0.5 MG NEB SCH ×2 (08:10→20:52)
[2021-11-20] MEDS: PROTONIX INJ 40 MG VIAL IVP SCH (08:42)
[2021-11-20] MEDS: ZESTRIL TAB 10 MG PO SCH (08:42)
[2021-11-20] MEDS: LOVENOX INJ 40 MG SYR SC SCH (08:42)
[2021-11-20] MEDS: ROCEPHIN VIAL 1 GRAM 1 G in NS 100 ML IV 100 ML IV SCH (08:43)
[2021-11-20 09:23] LABS: BASOPHILS % (AUTO) 0.2 % (0.2-1.0); EOSINOPHILS % (AUTO) 0.1 % (0.9-2.9); HEMATOCRIT 36.9 % (36.0-47.0); HEMOGLOBIN 12.4 g/dL (12.0-16.0); LYMPHOCYTES # (AUTO) 1.6 X10^3/uL (1.3-2.9); LYMPHOCYTES % (AUTO) 36.3 % (21.0-51.0); MEAN CORPUSCULAR HEMOGLOBIN 27.7 pg (27.0-34.0); MEAN CORPUSCULAR HGB CONC 33.5 g/dL (33.0-35.0); MEAN CORPUSCULAR VOLUME 82.6 fL (80.0-100.0); MEAN PLATELET VOLUME 8.6 fL (7.4-11.0); MONOCYTES # (AUTO) 0.3 x10^3/uL (0.3-0.8); MONOCYTES % (AUTO) 6.5 % (0.0-13.0); NEUTROPHILS # (AUTO) 2.5 x10^3/uL (2.2-4.8); NEUTROPHILS % (AUTO) 56.9 % (42.0-75.0); RED BLOOD COUNT 4.47 X10^6/uL (3.5-5.4); RED CELL DISTRIBUTION WIDTH 15.7 % (11.6-16.5); WHITE BLOOD COUNT 4.4 X10^3/uL (3.6-10.0)
[2021-11-20 09:35] LABS: ALANINE AMINOTRANSFERASE 7 Units/L (12-78); ALBUMIN 2.4 g/dL (3.4-5.0); ALKALINE PHOSPHATASE 120 Units/L (46-116); ASPARTATE AMINO TRANSFERASE 14 Units/L (15-37); BLOOD UREA NITROGEN 14 mg/dL (7-18); CALCIUM 8.5 mg/dL (8.5-10.1); CARBON DIOXIDE 27.1 mmol/L (21-32); CHLORIDE 102 mmol/L (98-107); COR CA(FOR HYPOALB) 9.8 mg/dL (8.5-10.1); COR NA(FOR HYPERGLY) 138 mmol/L (136-145); CREATININE 0.93 mg/dL (0.55-1.02); MAGNESIUM 1.9 mg/dL (1.7-2.9); SODIUM 136 mmol/L (136-145); TOTAL PROTEIN 6.6 g/dL (6.4-8.2); eGFR NON BLACK RACES > 60 (>60)
[2021-11-20] MEDS: TORADOL 15 MG VIAL IVP PRN (18:30)
[2021-11-20] MEDS: MAALOX or MYLANTA PO PRN (22:09)
[2021-11-21] MEDS: NEURONTIN CAP 400 MG PO SCH ×3 (05:38→21:13)
[2021-11-21] MEDS: PERCOCET TAB 5/325 MG PO SCH ×3 (05:38→21:14)
[2021-11-21] MEDS: SOLU-Medrol 40 MG VIAL IVP SCH ×4 (05:39→21:33)
[2021-11-21] MEDS: ROXICODONE TAB 5 MG PO SCH ×4 (05:40→21:32)
[2021-11-21 06:36] LABS: BASOPHILS % (AUTO) 0.1 % (0.2-1.0); HEMATOCRIT 33.4 % (36.0-47.0); HEMOGLOBIN 11.4 g/dL (12.0-16.0); LYMPHOCYTES # (AUTO) 1.1 X10^3/uL (1.3-2.9); LYMPHOCYTES % (AUTO) 12.6 % (21.0-51.0); MEAN CORPUSCULAR HGB CONC 34.2 g/dL (33.0-35.0); MEAN CORPUSCULAR VOLUME 82.1 fL (80.0-100.0); MONOCYTES # (AUTO) 0.5 x10^3/uL (0.3-0.8); MONOCYTES % (AUTO) 6.2 % (0.0-13.0); NEUTROPHILS # (AUTO) 6.9 x10^3/uL (2.2-4.8); NEUTROPHILS % (AUTO) 81.1 % (42.0-75.0); RED BLOOD COUNT 4.06 X10^6/uL (3.5-5.4); WHITE BLOOD COUNT 8.5 X10^3/uL (3.6-10.0)
[2021-11-21 06:55] LABS: ALANINE AMINOTRANSFERASE 8 Units/L (12-78); ALBUMIN 2.3 g/dL (3.4-5.0); ALKALINE PHOSPHATASE 109 Units/L (46-116); ASPARTATE AMINO TRANSFERASE 12 Units/L (15-37); BLOOD UREA NITROGEN 17 mg/dL (7-18); CALCIUM 8.9 mg/dL (8.5-10.1); CARBON DIOXIDE 29.4 mmol/L (21-32); CHLORIDE 102 mmol/L (98-107); COR CA(FOR HYPOALB) 10.3 mg/dL (8.5-10.1); COR NA(FOR HYPERGLY) 138 mmol/L (136-145); CREATINE KINASE 28 Units/L (26-192); CREATININE 0.72 mg/dL (0.55-1.02); SODIUM 136 mmol/L (136-145); TOTAL PROTEIN 6.4 g/dL (6.4-8.2); eGFR NON BLACK RACES > 60 (>60)
[2021-11-21] MEDS: PULMICORT NEB TX 0.5 MG NEB SCH ×2 (08:16→21:00)
[2021-11-21] MEDS: ZESTRIL TAB 10 MG PO SCH (09:06)
[2021-11-21] MEDS: PROTONIX INJ 40 MG VIAL IVP SCH (09:06)
[2021-11-21] MEDS: LOVENOX INJ 40 MG SYR SC SCH (09:06)
[2021-11-21] MEDS: ROCEPHIN VIAL 1 GRAM 1 G in NS 100 ML IV 100 ML IV SCH (09:08)
--- NOTE | 2021-11-21 11:54 | RAD ---
HISTORYBRONCHITIS Relevant Clinical InformationSTUDYCHEST, 1 VIEWCOMPARISONAP chest November 19, 2021FINDINGSThe trachea is midline. The cardiac silhouette is unremarkable. The lungs are clear without focal infiltrate or effusion. There are symmetric chronic lung changes most marked in the upper lobes especially the right. The bony thorax is unremarkable.IMPRESSIONChronic stable lung changes but no acute cardiopulmonary findings and no change from recent film 19 November 2021..Electronically signed by: DEON RUTHERFORD (Nov 21, 2021 11:52:49)
[2021-11-21] MEDS: MILK OF MAGNESIA PO SCH ×2 (13:34→21:13)
[2021-11-21] MEDS ORDERED: CATAPRES TAB 0.1 MG PO ONE (16:37)
[2021-11-21] MEDS ORDERED: APRESOLINE INJ 20 MG VIAL IVP ONE (20:39)
[2021-11-21] MEDS ORDERED: COLACE CAP 100 MG PO SCH (21:00)
[2021-11-21] MEDS ORDERED: MIRALAX POWDER (1 DOSE 17 G) PO SCH (21:00)
[2021-11-21] MEDS: XOPENEX 1.25 MG/3 ML NEBULE NEB PRN (21:00)
[2021-11-21] MEDS: MAALOX or MYLANTA PO PRN (22:00)
[2021-11-22] MEDS: SOLU-Medrol 40 MG VIAL IVP SCH (05:02)
[2021-11-22] MEDS: ROXICODONE TAB 5 MG PO SCH (05:03)
[2021-11-22] MEDS: NEURONTIN CAP 400 MG PO SCH (05:21)
[2021-11-22] MEDS: PERCOCET TAB 5/325 MG PO SCH (05:22)
[2021-11-22 06:18] LABS: BASOPHILS % (AUTO) 0.1 % (0.2-1.0); HEMATOCRIT 36.1 % (36.0-47.0); LYMPHOCYTES # (AUTO) 2.3 X10^3/uL (1.3-2.9); LYMPHOCYTES % (AUTO) 22.7 % (21.0-51.0); MEAN CORPUSCULAR HEMOGLOBIN 27.4 pg (27.0-34.0); MEAN CORPUSCULAR HGB CONC 33.3 g/dL (33.0-35.0); MEAN CORPUSCULAR VOLUME 82.2 fL (80.0-100.0); MEAN PLATELET VOLUME 8.5 fL (7.4-11.0); MONOCYTES # (AUTO) 0.9 x10^3/uL (0.3-0.8); MONOCYTES % (AUTO) 8.6 % (0.0-13.0); NEUTROPHILS # (AUTO) 7.1 x10^3/uL (2.2-4.8); NEUTROPHILS % (AUTO) 68.6 % (42.0-75.0); RED BLOOD COUNT 4.39 X10^6/uL (3.5-5.4); RED CELL DISTRIBUTION WIDTH 15.7 % (11.6-16.5); WHITE BLOOD COUNT 10.3 X10^3/uL (3.6-10.0)
[2021-11-22 06:41] LABS: ALANINE AMINOTRANSFERASE 7 Units/L (12-78); ALBUMIN 2.4 g/dL (3.4-5.0); ALKALINE PHOSPHATASE 107 Units/L (46-116); ASPARTATE AMINO TRANSFERASE 13 Units/L (15-37); BLOOD UREA NITROGEN 21 mg/dL (7-18); CALCIUM 8.8 mg/dL (8.5-10.1); CARBON DIOXIDE 30.8 mmol/L (21-32); CHLORIDE 101 mmol/L (98-107); COR CA(FOR HYPOALB) 10.1 mg/dL (8.5-10.1); COR NA(FOR HYPERGLY) 139 mmol/L (136-145); CREATININE 0.73 mg/dL (0.55-1.02); SODIUM 138 mmol/L (136-145); TOTAL PROTEIN 6.4 g/dL (6.4-8.2); eGFR NON BLACK RACES > 60 (>60)
[2021-11-22] MEDS: XOPENEX 1.25 MG/3 ML NEBULE NEB PRN (08:53)
[2021-11-22] MEDS: PULMICORT NEB TX 0.5 MG NEB SCH (08:53)
[2021-11-22] MEDS: ROCEPHIN VIAL 1 GRAM 1 G in NS 100 ML IV 100 ML IV SCH (08:58)
[2021-11-22] MEDS: LOVENOX INJ 40 MG SYR SC SCH (08:58)
[2021-11-22] MEDS: PROTONIX INJ 40 MG VIAL IVP SCH (08:59)
[2021-11-22] MEDS: ZESTRIL TAB 10 MG PO SCH (08:59)
[2021-11-22] MEDS: MILK OF MAGNESIA PO SCH (10:32)
[2021-11-22 12:22] VITALS: BP 137/63
== END 2021-11-22 13:20 | disposition home health service (06) ==
LOC: MED/SURG
PROVIDERS: ADMIT Internal Medicine; ATTEND Internal Medicine
DX: R06.02 Shortness of breath; R26.89 Other abnormalities of gait and mobility; M25.552 Pain in left hip; R94.31 Abnormal electrocardiogram [ECG] [EKG]; M25.551 Pain in right hip; E11.65 Type 2 diabetes mellitus with hyperglycemia; M54.59 Other low back pain; I25.10 Atherosclerotic heart disease of native coronary artery without angina pectoris; J44.1 Chronic obstructive pulmonary disease with (acute) exacerbation; Z20.822 Contact with and (suspected) exposure to COVID-19; I10 Essential (primary) hypertension; R79.82 Elevated C-reactive protein (CRP); B96.89 Other specified bacterial agents as the cause of diseases classified elsewhere; M06.80 Other specified rheumatoid arthritis, unspecified site

== ENCOUNTER 2024-04-19 14:40 | Observation (INO) ==
[2024-04-19 16:05] LABS: BASOPHILS % (AUTO) 0.7 % (0.2-1.0); EOSINOPHILS # (AUTO) 0.2 x10^3/uL (0.0-0.2); EOSINOPHILS % (AUTO) 4.8 % (0.9-2.9); HEMATOCRIT 31.1 % (36.0-47.0); HEMOGLOBIN 10.3 g/dL (12.0-16.0); LYMPHOCYTES # (AUTO) 1.6 X10^3/uL (1.3-2.9); LYMPHOCYTES % (AUTO) 32.7 % (21.0-51.0); MEAN CORPUSCULAR HEMOGLOBIN 26.6 pg (27.0-34.0); MEAN CORPUSCULAR HGB CONC 33.1 g/dL (33.0-35.0); MEAN CORPUSCULAR VOLUME 80.2 fL (80.0-100.0); MEAN PLATELET VOLUME 8.6 fL (7.4-11.0); MONOCYTES # (AUTO) 0.5 x10^3/uL (0.3-0.8); MONOCYTES % (AUTO) 10.4 % (0.0-13.0); NEUTROPHILS # (AUTO) 2.5 x10^3/uL (2.2-4.8); NEUTROPHILS % (AUTO) 51.4 % (42.0-75.0); PLATELET COUNT 192 X10^3/uL (150.0-450.0); RED BLOOD COUNT 3.88 X10^6/uL (3.5-5.4); RED CELL DISTRIBUTION WIDTH 15.7 % (11.6-16.5); WHITE BLOOD COUNT 4.8 X10^3/uL (3.6-10.0)
[2024-04-19 16:17] LABS: ALANINE AMINOTRANSFERASE 11 Units/L (12-78); ALKALINE PHOSPHATASE 120 Units/L (46-116); ASPARTATE AMINO TRANSFERASE 15 Units/L (15-37); BLOOD UREA NITROGEN 15 mg/dL (7-18); CALCIUM 8.8 mg/dL (8.5-10.1); CHLORIDE 104 mmol/L (98-107); COR CA(FOR HYPOALB) 10.4 mg/dL (8.5-10.1); COR NA(FOR HYPERGLY) 138 mmol/L (136-145); CREATININE 0.69 mg/dL (0.55-1.02); GLUCOSE 130 mg/dL (65-99); POTASSIUM 4.5 mmol/L (3.5-5.1); SODIUM 137 mmol/L (136-145); TOTAL PROTEIN 5.7 g/dL (6.4-8.2); eGFR NON BLACK RACES > 60 (>60)
[2024-04-19] MEDS: NS 1,000 ML IV 1,000 ML IV SCH (16:24)
[2024-04-19] MEDS: ROCEPHIN VIAL 1 GRAM 1 G in NS 100 ML IV 100 ML IV SCH (16:24)
[2024-04-19 17:02] LABS: BILIRUBIN,URINE NEGATIVE (NEGATIVE); BLOOD/HEMOGLOBIN,URINE 4+ (NEGATIVE); GLUCOSE, URINE NEGATIVE (NEGATIVE); KETONES,URINE NEGATIVE (NEGATIVE); LEUKOCYTE ESTERASE ,URINE 3+ (NEGATIVE); NITRITES,URINE NEGATIVE (NEGATIVE); PROTEIN,URINE 3+ (NEGATIVE); UROBILINOGEN,URINE NORMAL (NORMAL)
[2024-04-19 17:08] LABS: APPEARANCE,URINE SLIGHTLY HAZY (CLEAR); COLOR,URINE YELLOW (YELLOW)
[2024-04-19 17:14] LABS: BACTERIA,URINE 1+ /HPF (NEGATIVE); RBC,URINE TNTC /HPF (0-3); SQUAMOUS EPITHELIAL CELL,UR MODERATE /HPF (NEGATIVE)
[2024-04-19] MEDS: PERCOCET TAB 5/325 MG PO PRN (19:40)
--- NOTE | 2024-04-19 20:38 | RAD ---
EXAM:CHEST, 1 VIEWHISTORY:SOB;COMPARISON:December 31, 2023TECHNIQUE:Chest radiographic imaging, AP portable projection, 1 imageFINDINGS:No cardiomegaly.No focal airspace disease.No pleural effusion.No pneumothorax.No acute osseous abnormality.IMPRESSION:No imaging findings of acute cardiopulmonary disease.THIS IS AN ELECTRONICALLY VERIFIED FINAL REPORT04/19/2024 8:35 PM - Electronically signed by Kendall Laura MD
[2024-04-20 05:09] LABS: BASOPHILS % (AUTO) 0.7 % (0.2-1.0); EOSINOPHILS # (AUTO) 0.3 x10^3/uL (0.0-0.2); EOSINOPHILS % (AUTO) 6.1 % (0.9-2.9); HEMATOCRIT 30.1 % (36.0-47.0); LYMPHOCYTES # (AUTO) 1.5 X10^3/uL (1.3-2.9); LYMPHOCYTES % (AUTO) 31.9 % (21.0-51.0); MEAN CORPUSCULAR HEMOGLOBIN 26.5 pg (27.0-34.0); MEAN CORPUSCULAR HGB CONC 33.3 g/dL (33.0-35.0); MEAN CORPUSCULAR VOLUME 79.6 fL (80.0-100.0); MEAN PLATELET VOLUME 8.8 fL (7.4-11.0); MONOCYTES # (AUTO) 0.4 x10^3/uL (0.3-0.8); MONOCYTES % (AUTO) 9.4 % (0.0-13.0); NEUTROPHILS # (AUTO) 2.5 x10^3/uL (2.2-4.8); NEUTROPHILS % (AUTO) 51.9 % (42.0-75.0); PLATELET COUNT 178 X10^3/uL (150.0-450.0); RED BLOOD COUNT 3.79 X10^6/uL (3.5-5.4); RED CELL DISTRIBUTION WIDTH 15.7 % (11.6-16.5); WHITE BLOOD COUNT 4.8 X10^3/uL (3.6-10.0)
[2024-04-20 05:33] LABS: ALANINE AMINOTRANSFERASE 9 Units/L (12-78); ALBUMIN 1.9 g/dL (3.4-5.0); ALKALINE PHOSPHATASE 98 Units/L (46-116); ASPARTATE AMINO TRANSFERASE 15 Units/L (15-37); BLOOD UREA NITROGEN 11 mg/dL (7-18); CALCIUM 8.6 mg/dL (8.5-10.1); CHLORIDE 107 mmol/L (98-107); COR CA(FOR HYPOALB) 10.3 mg/dL (8.5-10.1); CREATININE 0.62 mg/dL (0.55-1.02); GLUCOSE 106 mg/dL (65-99); POTASSIUM 3.9 mmol/L (3.5-5.1); SODIUM 140 mmol/L (136-145); TOTAL PROTEIN 5.4 g/dL (6.4-8.2); eGFR NON BLACK RACES > 60 (>60)
[2024-04-20] MEDS ORDERED: AMBIEN PO PRN (08:10)
--- NOTE | 2024-04-20 08:22 | DR.H&P ---
H&P History & Physical for Day of: H&P Date: 04/19/24 Chief Complaint Chief Complaint: sob, blood in urine, UTI History of Present Illness History of Present Illness: PT IS 83 BF, DIRECT ADMIT FROM DR CULLEN OFFICE WITH CO BLOOD IN HER URINE AND RECENTLY UTI, FAILED WITH TWO ROUNDS OF PO ATBX. PT REPORTS SHE IS HAVING LOWER ABDOMINAL PAIN THAT COMES AND GOES LIKE SPASMS. PT ALSO CO INCREASED SOB WITH HX OF PE, HAD BEEN ON ELIQUIS BUT STOPPED AFTER AN ER VISIT ADVISING HER TO DC. PT HAS PMH OF RA, HTN, DM, COPE, RESP FAILURE AND C SPINE FRACTURE. Past Medical History Past Medical History: Arthritis, COPD, Coronary Artery Disease, Diabetes, GERD, Hypertension and [place] Past Surgical History Surgical History: Appendectomy and Ortho Surgery Family History Family Medical History: [place] and Coronary Artery Disease Social History Does patient currently use any type of tobacco product: Yes Type of Tobacco Use: Cigarettes Does any household member use tobacco: Yes Alcohol Use: None Drug Use: None Medications Home Medications: Home Medications Medication Instructions Recorded Confirmed Type apixaban 5 mg tablet (Eliquis) 5 mg PO BID 12/29/23 04/19/24 History atorvastatin 40 mg tablet 40 mg PO QDAY 12/29/23 04/19/24 History gabapentin 400 mg capsule 400 mg PO QID 12/29/23 04/19/24 History levocetirizine 5 mg tablet 5 mg PO QPM 12/29/23 04/19/24 History oxycodone-acetaminophen 10 mg-325 1 tab PO QID PRN 12/29/23 04/19/24 History mg tablet pantoprazole 40 mg tablet,delayed 40 mg PO BID 12/29/23 04/19/24 History release prednisone 5 mg tablet 5 mg PO QAM 12/29/23 04/19/24 History zolpidem 5 mg tablet 2.5 mg PO QPM PRN 12/29/23 04/19/24 History lactulose 10 gram/15 mL oral 30 ml PO QAM PRN constipation 04/19/24 04/19/24 History solution megestrol 400 mg/10 mL (40 mg/mL) 200 mg PO BID 04/19/24 04/19/24 History oral suspension mirtazapine 15 mg tablet 15 mg PO QPM 04/19/24 04/19/24 History tramadol 50 mg tablet 50 mg PO Q12H PRN pain 04/19/24 04/19/24 History Allergies Allergies Allergy/AdvReac Type Severity Reaction Status Date / Time No Known Drug Allergies Allergy Unknown Verified 10/13/23 15:46 Labs 04/20/24 04:43 04/20/24 04:43 Labs: Laboratory WBC 4.8 X10^3/uL (3.6-10.0) 04/20/24 04:43 RBC 3.79 X10^6/uL (3.5-5.4) 04/20/24 04:43 Hgb 10.0 g/dL (12.0-16.0) L 04/20/24 04:43 Hct 30.1 % (36.0-47.0) L 04/20/24 04:43 MCV 79.6 fL (80.0-100.0) L 04/20/24 04:43 MCH 26.5 pg (27.0-34.0) L 04/20/24 04:43 MCHC 33.3 g/dL (33.0-35.0) 04/20/24 04:43 RDW 15.7 % (11.6-16.5) 04/20/24 04:43 Plt Count 178 X10^3/uL (150.0-450.0) 04/20/24 04:43 MPV 8.8 fL (7.4-11.0) 04/20/24 04:43 Neut % (Auto) 51.9 % (42.0-75.0) 04/20/24 04:43 Lymph % (Auto) 31.9 % (21.0-51.0) 04/20/24 04:43 [place] % (Auto) 9.4 % (0.0-13.0) 04/20/24 04:43 Eos % (Auto) 6.1 % (0.9-2.9) H 04/20/24 04:43 Baso % (Auto) 0.7 % (0.2-1.0) 04/20/24 04:43 Neut # (Auto) 2.5 x10^3/uL (2.2-4.8) 04/20/24 04:43 Lymph # (Auto) 1.5 X10^3/uL (1.3-2.9) 04/20/24 04:43 [place] # (Auto) 0.4 x10^3/uL (0.3-0.8) 04/20/24 04:43 Eos # (Auto) 0.3 x10^3/uL (0.0-0.2) H 04/20/24 04:43 Baso # (Auto) 0.0 X10^3/uL (0.0-0.1) 04/20/24 04:43 Absolute Nucleated RBC 0.0 /100WBC 04/20/24 04:43 D-Dimer 3.66 ug/ml (0.0-0.57) H 04/19/24 15:53 Sodium 140 mmol/L (136-145) 04/20/24 04:43 Corrected Sodium TNP 04/20/24 04:43 Potassium 3.9 mmol/L (3.5-5.1) 04/20/24 04:43 Chloride 107 mmol/L (98-107) 04/20/24 04:43 Carbon Dioxide 28.0 mmol/L (21-32) 04/20/24 04:43 BUN 11 mg/dL (7-18) 04/20/24 04:43 Creatinine 0.62 mg/dL (0.55-1.02) 04/20/24 04:43 Est GFR (MDRD) Af Amer > 60 (>60) 04/20/24 04:43 Est GFR (MDRD) Non-Af > 60 (>60) 04/20/24 04:43 Glucose 106 mg/dL (65-99) H 04/20/24 04:43 Calcium 8.6 mg/dL (8.5-10.1) 04/20/24 04:43 Corrected Calcium 10.3 mg/dL (8.5-10.1) H 04/20/24 04:43 Total Bilirubin 0.20 mg/dL (0.2-1.0) 04/20/24 04:43 AST 15 Units/L (15-37) 04/20/24 04:43 ALT 9 Units/L (12-78) L 04/20/24 04:43 Alkaline Phosphatase 98 Units/L (46-116) 04/20/24 04:43 B-Natriuretic Peptide 106 pg/mL (0-79) H 04/19/24 15:53 Total Protein 5.4 g/dL (6.4-8.2) L 04/20/24 04:43 Albumin 1.9 g/dL (3.4-5.0) L 04/20/24 04:43 Globulin 3.5 g/dL (2.5-4.5) 04/20/24 04:43 Albumin/Globulin Ratio 0.5 Ratio (1.1-2.1) L 04/20/24 04:43 Specimen Type Catherized urine 04/19/24 16:32 Urine Color Yellow (YELLOW) 04/19/24 16:32 Urine Appearance Slightly hazy (CLEAR) 04/19/24 16:32 Urine pH 6.0 (5.0 - 8.0) 04/19/24 16:32 Ur Specific [place] 1.015 (1.000-1.030) 04/19/24 16:32 Urine Protein 3+ (NEGATIVE) 04/19/24 16:32 Urine Glucose (UA) Negative (NEGATIVE) 04/19/24 16:32 Urine Ketones Negative (NEGATIVE) 04/19/24 16:32 Urine Blood 4+ (NEGATIVE) 04/19/24 16:32 Urine Nitrite Negative (NEGATIVE) 04/19/24 16:32 Urine Bilirubin Negative (NEGATIVE) 04/19/24 16:32 Urine Urobilinogen Normal (NORMAL) 04/19/24 16:32 Ur Leukocyte Esterase 3+ (NEGATIVE) 04/19/24 16:32 Urine RBC Tntc /HPF (0-3) A 04/19/24 16:32 Urine WBC Tntc /HPF (0-5) A 04/19/24 16:32 Ur Squamous Epith Cells Moderate /HPF (NEGATIVE) 04/19/24 16:32 Urine Bacteria 1+ /HPF (NEGATIVE) 04/19/24 16:32 Ur Culture Indicated? Yes/culture set up 04/19/24 16:32 Review of Systems Constitutional: Weakness Eyes: No Symptoms Reported ENT: Throat Pain Respiratory: Cough, Shortness of Breath, Sputum and Wheezing Cardiovascular: No Symptoms Reported Gastrointestinal: Nausea Genitourinary: Hematuria Musculoskeletal: Back Pain Skin: Wound Neurological: Weakness Physical Exam Vital Signs: Vital Signs Temperature 98 F Pulse Rate 77 Pulse Rate 84 Respiratory Rate 13 Respiratory Rate 22 Respiratory Rate 26 Respiratory Rate 22 Blood Pressure 141/67 Blood Pressure 144/90 O2 Sat by Pulse Oximetry 100 O2 Sat by Pulse Oximetry 96 Oriented: Normal Eyes: Normal Ear: Normal Throat: Dry Respiratory: Wheezes Throughout Cardiovascular: Normal Auscultation: Bowel Sounds: Decreased Palpation: Normal Tenderness: Mild Skin: Wound Musculoskeletal: Back:Lumbar, Motor Deficit and Sensory Deficit Psychiatric: Anxiety Speech Pattern: Clear Assessment/Plan (1) Hematuria: Status: Acute Plan: ADMIT, UC IV HYDRATION, IV ATBX BP AND BS CONTROL (2) Acute cystitis: Status: Acute (3) SOB (shortness of breath): Status: Acute (4) UTI (urinary tract infection): Status: Acute (5) Hypertension: Status: Acute (6) Rheumatoid arthritis flare: Status: Acute (7) Gastroesophageal reflux disease: Status: Acute (8) GERD (gastroesophageal reflux disease): Status: Acute
[2024-04-20] MEDS: NEURONTIN CAP 400 MG PO SCH (08:37)
[2024-04-20] MEDS: PREDNISONE TAB 5 MG PO SCH (08:38)
[2024-04-20] MEDS: LIPITOR TAB 40 MG PO SCH (10:00)
[2024-04-20] MEDS: NYSTATIN OINT TOP SCH (12:25)
--- NOTE | 2024-04-20 13:52 | EKG ---
Test Reason : Abnormal heart rhythm, patient dizzy Blood Pressure : */* mmHG Vent. Rate : 97 BPM Atrial Rate : 97 BPM P-R Int : 134 ms QRS Dur : 72 ms QT Int : 368 ms P-R-T Axes : 67 -23 85 degrees QTc Int : 467 ms Sinus rhythm with premature atrial complexes Low voltage QRS Cannot rule out Anterior infarct , age undetermined Abnormal ECG When compared with ECG of 14-OCT-2023 05:08, premature atrial complexes are now present Questionable change in QRS axis T wave inversion no longer evident in Inferior leads Nonspecific T wave abnormality now evident in Lateral leads Confirmed by Abdiel Guzman MD ([id number]) on 04/21/2024 7:38:52 AM Referred By: Confirmed By: Abdiel Guzman MD
[2024-04-20] MEDS: OMNIPAQUE 350 mg/mL 100 mL BTL 100 ML ONE (14:54)
--- NOTE | 2024-04-20 15:18 | CT ---
EXAM:CTA, CHESTHISTORY:SOB / HX OF PE ;COMPARISON:No relevant prior studies were available for comparison at the time of interpretation..TECHNIQUE:CT images were obtained. Multiplanar reconstructions were created on a separate workstation and used during interpretation. All CT scans at this facility is dose modulation, iterative reconstruction, and/or weight-based dosing as appropriate to reduce radiation to levels as low as reasonably achievable (ALARA). Postprocessing details, radiation dose, and contrast dose (if applicable) are recorded in the patient's medical record.3D maximum intensity projection images were obtained and evaluated.FINDINGS:Lower Neck: No acute soft tissue abnormality. No actionable thyroid nodule.Lymph nodes: No visualized cervical, supraclavicular, axillary, mediastinal, or hilar adenopathyUpper abdomen: No acute abnormality identified in the visualized upper abdomen.Cardiomediastinum: No right heart strain.Vascular: The thoracic aorta is widely patent. No significant stenosis of the major branch vessels. There is no thrombus within the pulmonary arteries down to the subsegmental level.Lungs: At least moderate emphysema. Bibasilar scarring.. No effusion or pneumothoraxOsseous structures: No acute osseous abnormality. No destructive osseous lesion.IMPRESSION:1. No PE2. No pneumoniaTHIS IS AN ELECTRONICALLY VERIFIED FINAL REPORT04/20/2024 3:15 PM - Electronically signed by Hernandez Zavala MD
[2024-04-20] MEDS: NICOTINE PATCH TD SCH (17:43)
[2024-04-20 20:18] VITALS: BMI 15.7
[2024-04-20] MEDS: ZyrTEC TAB 10 MG PO SCH (20:40)
[2024-04-20] MEDS: REMERON PO SCH (20:41)
[2024-04-21 04:52] LABS: BASOPHILS % (AUTO) 0.5 % (0.2-1.0); EOSINOPHILS # (AUTO) 0.2 x10^3/uL (0.0-0.2); EOSINOPHILS % (AUTO) 4.8 % (0.9-2.9); HEMATOCRIT 29.8 % (36.0-47.0); HEMOGLOBIN 9.9 g/dL (12.0-16.0); LYMPHOCYTES # (AUTO) 1.9 X10^3/uL (1.3-2.9); LYMPHOCYTES % (AUTO) 41.3 % (21.0-51.0); MEAN CORPUSCULAR HEMOGLOBIN 26.4 pg (27.0-34.0); MEAN CORPUSCULAR HGB CONC 33.1 g/dL (33.0-35.0); MEAN CORPUSCULAR VOLUME 79.6 fL (80.0-100.0); MEAN PLATELET VOLUME 8.4 fL (7.4-11.0); MONOCYTES # (AUTO) 0.4 x10^3/uL (0.3-0.8); NEUTROPHILS % (AUTO) 44.4 % (42.0-75.0); PLATELET COUNT 188 X10^3/uL (150.0-450.0); RED BLOOD COUNT 3.74 X10^6/uL (3.5-5.4); WHITE BLOOD COUNT 4.5 X10^3/uL (3.6-10.0)
[2024-04-21 05:23] LABS: ALANINE AMINOTRANSFERASE 7 Units/L (12-78); ALBUMIN 1.9 g/dL (3.4-5.0); ALKALINE PHOSPHATASE 100 Units/L (46-116); ASPARTATE AMINO TRANSFERASE 16 Units/L (15-37); BLOOD UREA NITROGEN 8 mg/dL (7-18); CALCIUM 8.7 mg/dL (8.5-10.1); CARBON DIOXIDE 25.9 mmol/L (21-32); CHLORIDE 110 mmol/L (98-107); COR CA(FOR HYPOALB) 10.4 mg/dL (8.5-10.1); CREATININE 0.56 mg/dL (0.55-1.02); GLUCOSE 95 mg/dL (65-99); POTASSIUM 3.7 mmol/L (3.5-5.1); SODIUM 144 mmol/L (136-145); TOTAL PROTEIN 5.4 g/dL (6.4-8.2); eGFR NON BLACK RACES > 60 (>60)
[2024-04-21] MEDS ORDERED: CONSULT PHARMACY - POTASSIUM & MAGNESIUM XX SCH (07:00)
[2024-04-21 08:05] VITALS: BP 148/67; PULSE 68; RESP 19; TEMP 98.3; O2SAT 97
[2024-04-21] MEDS: MAG-OX TAB PO SCH (08:15)
[2024-04-21] MEDS: K-DUR TAB 20 MEQ PO SCH (08:15)
== END 2024-04-21 09:20 | disposition home health service (06) ==
LOC: ICU
PROVIDERS: ADMIT Internal Medicine; ATTEND Internal Medicine
DX: R62.7 Adult failure to thrive; M06.80 Other specified rheumatoid arthritis, unspecified site; I25.10 Atherosclerotic heart disease of native coronary artery without angina pectoris; E83.42 Hypomagnesemia; R06.02 Shortness of breath; Z72.0 Tobacco use; R94.31 Abnormal electrocardiogram [ECG] [EKG]; J44.9 Chronic obstructive pulmonary disease, unspecified; D64.89 Other specified anemias; R79.1 Abnormal coagulation profile; Z79.01 Long term (current) use of anticoagulants; I10 Essential (primary) hypertension; R26.89 Other abnormalities of gait and mobility; R10.84 Generalized abdominal pain; K21.9 Gastro-esophageal reflux disease without esophagitis; N39.0 Urinary tract infection, site not specified; Z86.711 Personal history of pulmonary embolism; R31.0 Gross hematuria; E11.65 Type 2 diabetes mellitus with hyperglycemia; R42 Dizziness and giddiness

== ENCOUNTER 2024-05-18 12:02 | Observation (INO) ==
[2024-05-18] MEDS ORDERED: NovoLIN R (or HumuLIN R) SUBCUT PRN (12:16)
[2024-05-18 13:06] LABS: BASOPHILS % (AUTO) 0.5 % (0.2-1.0); EOSINOPHILS # (AUTO) 0.1 x10^3/uL (0.0-0.2); HEMATOCRIT 37.1 % (36.0-47.0); HEMOGLOBIN 12.1 g/dL (12.0-16.0); LYMPHOCYTES # (AUTO) 1.4 X10^3/uL (1.3-2.9); LYMPHOCYTES % (AUTO) 23.1 % (21.0-51.0); MEAN CORPUSCULAR HEMOGLOBIN 25.6 pg (27.0-34.0); MEAN CORPUSCULAR HGB CONC 32.6 g/dL (33.0-35.0); MEAN CORPUSCULAR VOLUME 78.5 fL (80.0-100.0); MEAN PLATELET VOLUME 8.6 fL (7.4-11.0); MONOCYTES # (AUTO) 0.4 x10^3/uL (0.3-0.8); MONOCYTES % (AUTO) 7.4 % (0.0-13.0); PLATELET COUNT 251 X10^3/uL (150.0-450.0); RED BLOOD COUNT 4.73 X10^6/uL (3.5-5.4); RED CELL DISTRIBUTION WIDTH 16.5 % (11.6-16.5); WHITE BLOOD COUNT 5.9 X10^3/uL (3.6-10.0)
[2024-05-18 13:20] LABS: ALANINE AMINOTRANSFERASE 9 Units/L (12-78); ALBUMIN 2.6 g/dL (3.4-5.0); ALKALINE PHOSPHATASE 136 Units/L (46-116); ASPARTATE AMINO TRANSFERASE 17 Units/L (15-37); BLOOD UREA NITROGEN 8 mg/dL (7-18); CALCIUM 9.4 mg/dL (8.5-10.1); CARBON DIOXIDE 29.9 mmol/L (21-32); CHLORIDE 102 mmol/L (98-107); COR CA(FOR HYPOALB) 10.5 mg/dL (8.5-10.1); COR NA(FOR HYPERGLY) 138 mmol/L (136-145); CREATININE 0.65 mg/dL (0.55-1.02); GLUCOSE 112 mg/dL (65-99); POTASSIUM 4.1 mmol/L (3.5-5.1); SODIUM 138 mmol/L (136-145); TOTAL PROTEIN 7.2 g/dL (6.4-8.2); eGFR NON BLACK RACES > 60 (>60)
[2024-05-18] MEDS: NS 1,000 ML IV 1,000 ML IV SCH (13:31)
[2024-05-18] MEDS: ROCEPHIN VIAL 1 GRAM 1 G in NS 100 ML IV 100 ML IV SCH (13:31)
[2024-05-18] MEDS: NEURONTIN CAP 400 MG PO SCH (13:31)
[2024-05-18] MEDS: PERCOCET TAB 5/325 MG PO PRN (13:32)
[2024-05-18 14:21] VITALS: BMI 14.6
[2024-05-18 16:15] LABS: BILIRUBIN,URINE 2+ (NEGATIVE); BLOOD/HEMOGLOBIN,URINE 4+ (NEGATIVE); GLUCOSE, URINE NEGATIVE (NEGATIVE); KETONES,URINE 3+ (NEGATIVE); LEUKOCYTE ESTERASE ,URINE 3+ (NEGATIVE); NITRITES,URINE POSITIVE (NEGATIVE); PROTEIN,URINE 3+ (NEGATIVE); UROBILINOGEN,URINE 2+ (NORMAL)
[2024-05-18 16:50] LABS: APPEARANCE,URINE CLOUDY (CLEAR); COLOR,URINE BROWN (YELLOW)
[2024-05-18 16:51] LABS: BACTERIA,URINE 2+ /HPF (NEGATIVE); SQUAMOUS EPITHELIAL CELL,UR MODERATE /HPF (NEGATIVE)
--- NOTE | 2024-05-18 18:00 | DR.H&P ---
H&P History & Physical for Day of: H&P Date: 05/18/24 Chief Complaint Chief Complaint: right side pain, painful urination, weakness History of Present Illness History of Present Illness: PT IS 83 WF, DIRECT ADMIT FROM DR CULLEN OFFICE WITH CO INTRACTABLE RIGHT LOWER ABDOMINAL PAIN AND RIGHT FLANK PAIN. PT CO DYURIA AND HEMATURIA. PT HAS BEEN UNDER THE CARE OF DR LERMA, UROLOGY, DX WITH RIGHT RENAL CALCULI FROM CT AT [facility], UTI AND WAS STARTED ON 2ND ROUND OF ANTIBIOTIC LAST FRIDAY. PT HAS PMH OF RA, COPD, HTN, OA, NEUROPATHY AND IS BED BOUND AT HOME. PT CO BEING "SO SICK" AT HOME WITH LOSS OF APPETITE. PT DENIES ANY FEVER OR UPPER RESP SYMPTOMS THAT ARE NEW OR ACUTE. PT ADMITTED FOR EVALUATION AND TREATMENT OF ACUTE ILLNESS, FAILED OUTPT TREATMENT. Past Medical History Past Medical History: Arthritis, COPD, Coronary Artery Disease, Diabetes, GERD, Hypertension and [place] Past Surgical History Surgical History: Appendectomy and Ortho Surgery Family History Family Medical History: [place] and Coronary Artery Disease Social History Does patient currently use any type of tobacco product: Yes Have you used tobacco products in the last 12 months: Yes Type of Tobacco Use: 1/2 PPD Alcohol Use: None Drug Use: None Medications Home Medications: Home Medications Medication Instructions Recorded Confirmed Type atorvastatin 40 mg tablet 40 mg PO QDAY 12/29/23 05/18/24 History gabapentin 400 mg capsule 400 mg PO QID 12/29/23 05/18/24 History oxycodone-acetaminophen 10 mg-325 1 tab PO QID PRN 12/29/23 05/18/24 History mg tablet pantoprazole 40 mg tablet,delayed 40 mg PO BID 12/29/23 05/18/24 History release zolpidem 5 mg tablet 2.5 mg PO QPM PRN 12/29/23 05/18/24 History phenazopyridine 200 mg tablet 200 mg PO BID PRN 05/18/24 05/18/24 History Allergies Allergies Allergy/AdvReac Type Severity Reaction Status Date / Time No Known Drug Allergies Allergy Unknown Verified 10/13/23 15:46 Labs 05/18/24 12:34 05/18/24 12:34 Labs: Laboratory WBC 5.9 X10^3/uL (3.6-10.0) 05/18/24 12:34 RBC 4.73 X10^6/uL (3.5-5.4) 05/18/24 12:34 Hgb 12.1 g/dL (12.0-16.0) 05/18/24 12:34 Hct 37.1 % (36.0-47.0) 05/18/24 12:34 MCV 78.5 fL (80.0-100.0) L 05/18/24 12:34 MCH 25.6 pg (27.0-34.0) L 05/18/24 12: MCHC 32.6 g/dL (33.0-35.0) L 05/18/24 12:34 RDW 16.5 % (11.6-16.5) 05/18/24 12:34 Plt Count 251 X10^3/uL (150.0-450.0) 05/18/24 12:34 MPV 8.6 fL (7.4-11.0) 05/18/24 12:34 Neut % (Auto) 68.0 % (42.0-75.0) 05/18/24 12:34 Lymph % (Auto) 23.1 % (21.0-51.0) 05/18/24 12:34 [place] % (Auto) 7.4 % (0.0-13.0) 05/18/24 12:34 Eos % (Auto) 1.0 % (0.9-2.9) 05/18/24 12:34 Baso % (Auto) 0.5 % (0.2-1.0) 05/18/24 12:34 Neut # (Auto) 4.0 x10^3/uL (2.2-4.8) 05/18/24 12:34 Lymph # (Auto) 1.4 X10^3/uL (1.3-2.9) 05/18/24 12:34 [place] # (Auto) 0.4 x10^3/uL (0.3-0.8) 05/18/24 12:34 Eos # (Auto) 0.1 x10^3/uL (0.0-0.2) 05/18/24 12:34 Baso # (Auto) 0.0 X10^3/uL (0.0-0.1) 05/18/24 12:34 Absolute Nucleated RBC 0.1 /100WBC 05/18/24 12:34 Sodium 138 mmol/L (136-145) 05/18/24 12:34 Corrected Sodium 138 mmol/L (136-145) 05/18/24 12:34 Potassium 4.1 mmol/L (3.5-5.1) 05/18/24 12:34 Chloride 102 mmol/L (98-107) 05/18/24 12:34 Carbon Dioxide 29.9 mmol/L (21-32) 05/18/24 12:34 BUN 8 mg/dL (7-18) 05/18/24 12:34 Creatinine 0.65 mg/dL (0.55-1.02) 05/18/24 12:34 Est GFR (MDRD) Af Amer > 60 (>60) 05/18/24 12:34 Est GFR (MDRD) Non-Af > 60 (>60) 05/18/24 12:34 Glucose 112 mg/dL (65-99) H 05/18/24 12:34 POC Glucose (mg/dL) 95 mg/dL (65-99) 05/18/24 16:49 Calcium 9.4 mg/dL (8.5-10.1) 05/18/24 12:34 Corrected Calcium 10.5 mg/dL (8.5-10.1) H 05/18/24 12:34 Total Bilirubin 0.40 mg/dL (0.2-1.0) 05/18/24 12:34 AST 17 Units/L (15-37) 05/18/24 12:34 ALT 9 Units/L (12-78) L 05/18/24 12:34 Alkaline Phosphatase 136 Units/L (46-116) H 05/18/24 12:34 Total Protein 7.2 g/dL (6.4-8.2) 05/18/24 12:34 Albumin 2.6 g/dL (3.4-5.0) L 05/18/24 12:34 Globulin 4.6 g/dL (2.5-4.5) H 05/18/24 12:34 Albumin/Globulin Ratio 0.6 Ratio (1.1-2.1) L 05/18/24 12:34 Specimen Type Clean catch urine 05/18/24 15:45 Urine Color Brown (YELLOW) 05/18/24 15:45 Urine Appearance Cloudy (CLEAR) 05/18/24 15:45 Urine pH 6.0 (5.0 - 8.0) 05/18/24 15:45 Ur Specific Mcd[place] 1.025 (1.000-1.030) 05/18/24 15:45 Urine Protein 3+ (NEGATIVE) 05/18/24 15:45 Urine Glucose (UA) Negative (NEGATIVE) 05/18/24 15:45 Urine Ketones 3+ (NEGATIVE) 05/18/24 15:45 Urine Blood 4+ (NEGATIVE) 05/18/24 15:45 Urine Nitrite Positive (NEGATIVE) 05/18/24 15:45 Urine Bilirubin 2+ (NEGATIVE) 05/18/24 15:45 Urine Urobilinogen 2+ (NORMAL) 05/18/24 15:45 Ur Leukocyte Esterase 3+ (NEGATIVE) 05/18/24 15:45 Urine RBC 10-20 /HPF (0-3) A 05/18/24 15:45 Urine WBC Tntc /HPF (0-5) A 05/18/24 15:45 Ur Squamous Epith Cells Moderate /HPF (NEGATIVE) 05/18/24 15:45 Urine Bacteria 2+ /HPF (NEGATIVE) 05/18/24 15:45 Ur Culture Indicated? Yes/culture set up 05/18/24 15:45 Review of Systems Constitutional: Chills and Weakness Eyes: No Symptoms Reported ENT: No Symptoms Reported Respiratory: Shortness of Breath Cardiovascular: Edema Gastrointestinal: Nausea, Abdominal Pain and Constipation Genitourinary: Dysuria and Hematuria Musculoskeletal: Shoulder Pain, Back Pain, Leg Pain and Neck Pain Skin: No Symptoms Reported Neurological: Weakness Physical Exam Vital Signs: Vital Signs Temperature 97.7 F Pulse Rate [Right Radial] 86 Pulse Rate 92 Respiratory Rate 16 Respiratory Rate 20 Respiratory Rate 20 Respiratory Rate 20 Blood Pressure [Right Arm] 141/67 Blood Pressure 148/67 O2 Sat by Pulse Oximetry 95 O2 Sat by Pulse Oximetry 99 Oriented: Normal Eyes: Normal Ear: Normal Nose: Normal Throat: Normal Respiratory: RLL Diminished and LLL Diminished Cardiovascular: Edema; negative Murmur : Hematuria Auscultation: Bowel Sounds: Normal Palpation: Normal Tenderness: RLQ and Suprapubic Skin: Decreased Turgur Musculoskeletal: Swelling, Motor Deficit, Sensory Deficit and Crepitance Psychiatric: Depression Mood Description: Depressed Affect: Depressed Speech Pattern: Clear and Appropriate Assessment/Plan (1) UTI (urinary tract infection): Status: Acute Plan: ADMIT, BLOOD AND URINE CULTURE ON ADMISSION PAIN CONTROL, I&OS BS AND BP CONTROL, RESP CONSULT IV HYDRATION IV ROCEPHIN (2) Kidney stone on right side: Status: Acute (3) GERD (gastroesophageal reflux disease): Status: Acute (4) Hypertension: Status: Acute (5) Rheumatoid arthritis flare: Status: Acute (6) Diabetes mellitus: Status: Acute (7) COPD (chronic obstructive pulmonary disease): Status: Acute
[2024-05-18] MEDS: NICOTINE PATCH TD SCH (18:10)
[2024-05-18] MEDS: SNACK - Diabetic Appropriate PO SCH (20:36)
[2024-05-18] MEDS: PROTONIX TAB 40 MG PO SCH (22:21)
[2024-05-19 05:49] LABS: BASOPHILS % (AUTO) 0.3 % (0.2-1.0); EOSINOPHILS # (AUTO) 0.2 x10^3/uL (0.0-0.2); EOSINOPHILS % (AUTO) 3.2 % (0.9-2.9); HEMATOCRIT 30.6 % (36.0-47.0); HEMOGLOBIN 10.1 g/dL (12.0-16.0); LYMPHOCYTES # (AUTO) 1.6 X10^3/uL (1.3-2.9); LYMPHOCYTES % (AUTO) 30.6 % (21.0-51.0); MEAN CORPUSCULAR HEMOGLOBIN 25.5 pg (27.0-34.0); MEAN CORPUSCULAR HGB CONC 32.8 g/dL (33.0-35.0); MEAN CORPUSCULAR VOLUME 77.7 fL (80.0-100.0); MEAN PLATELET VOLUME 8.1 fL (7.4-11.0); MONOCYTES # (AUTO) 0.6 x10^3/uL (0.3-0.8); MONOCYTES % (AUTO) 11.7 % (0.0-13.0); NEUTROPHILS # (AUTO) 2.9 x10^3/uL (2.2-4.8); NEUTROPHILS % (AUTO) 54.2 % (42.0-75.0); PLATELET COUNT 224 X10^3/uL (150.0-450.0); RED BLOOD COUNT 3.94 X10^6/uL (3.5-5.4); RED CELL DISTRIBUTION WIDTH 16.5 % (11.6-16.5); WHITE BLOOD COUNT 5.3 X10^3/uL (3.6-10.0)
[2024-05-19 06:01] LABS: ALANINE AMINOTRANSFERASE < 6 Units/L (12-78); ALBUMIN 1.9 g/dL (3.4-5.0); ALKALINE PHOSPHATASE 111 Units/L (46-116); ASPARTATE AMINO TRANSFERASE 15 Units/L (15-37); BLOOD UREA NITROGEN 9 mg/dL (7-18); CALCIUM 8.6 mg/dL (8.5-10.1); CARBON DIOXIDE 28.6 mmol/L (21-32); CHLORIDE 107 mmol/L (98-107); COR CA(FOR HYPOALB) 10.3 mg/dL (8.5-10.1); CREATININE 0.57 mg/dL (0.55-1.02); GLUCOSE 93 mg/dL (65-99); POTASSIUM 3.6 mmol/L (3.5-5.1); SODIUM 141 mmol/L (136-145); TOTAL PROTEIN 5.7 g/dL (6.4-8.2); eGFR NON BLACK RACES > 60 (>60)
--- NOTE | 2024-05-19 06:12 | RAD ---
EXAM: KUB HISTORY: RIGHT RENAL STONE; COMPARISON: None FINDINGS: Evaluation of the abdomen demonstrates a nonobstructive bowel gas pattern. No evidence of pneumoperit oneum. Possible right nephrolithiasis measuring up to 1.3 cm. No acute osseous abnormality. IMPRESSION: Possible right nephrolithiasis. THIS IS AN ELECTRONICALLY VERIFIED FINAL REPORT 05/19/2024 6:09 AM - Electronically signed by Bret Brice MD
[2024-05-19] MEDS: LIPITOR TAB 40 MG PO SCH (10:41)
[2024-05-19] MEDS: MORPHINE SULFATE INJ 2 MG INJ IVP PRN (13:53)
[2024-05-20 05:50] LABS: BASOPHILS % (AUTO) 0.3 % (0.2-1.0); EOSINOPHILS # (AUTO) 0.1 x10^3/uL (0.0-0.2); EOSINOPHILS % (AUTO) 2.8 % (0.9-2.9); HEMATOCRIT 32.2 % (36.0-47.0); HEMOGLOBIN 10.4 g/dL (12.0-16.0); LYMPHOCYTES # (AUTO) 2.2 X10^3/uL (1.3-2.9); MEAN CORPUSCULAR HEMOGLOBIN 25.4 pg (27.0-34.0); MEAN CORPUSCULAR HGB CONC 32.4 g/dL (33.0-35.0); MEAN CORPUSCULAR VOLUME 78.4 fL (80.0-100.0); MONOCYTES # (AUTO) 0.4 x10^3/uL (0.3-0.8); MONOCYTES % (AUTO) 8.4 % (0.0-13.0); NEUTROPHILS # (AUTO) 2.4 x10^3/uL (2.2-4.8); NEUTROPHILS % (AUTO) 45.5 % (42.0-75.0); PLATELET COUNT 220 X10^3/uL (150.0-450.0); RED CELL DISTRIBUTION WIDTH 16.3 % (11.6-16.5); WHITE BLOOD COUNT 5.2 X10^3/uL (3.6-10.0)
[2024-05-20 06:27] LABS: ALANINE AMINOTRANSFERASE 6 Units/L (12-78); ALKALINE PHOSPHATASE 112 Units/L (46-116); ASPARTATE AMINO TRANSFERASE 16 Units/L (15-37); BLOOD UREA NITROGEN 10 mg/dL (7-18); CALCIUM 8.5 mg/dL (8.5-10.1); CARBON DIOXIDE 26.9 mmol/L (21-32); CHLORIDE 109 mmol/L (98-107); COR CA(FOR HYPOALB) 10.1 mg/dL (8.5-10.1); CREATININE 0.59 mg/dL (0.55-1.02); GLUCOSE 93 mg/dL (65-99); MAGNESIUM 1.4 mg/dL (2.0-2.9); POTASSIUM 3.5 mmol/L (3.5-5.1); SODIUM 141 mmol/L (136-145); TOTAL PROTEIN 5.8 g/dL (6.4-8.2); eGFR NON BLACK RACES > 60 (>60)
[2024-05-20] MEDS ORDERED: CONSULT PHARMACY - POTASSIUM & MAGNESIUM XX SCH (07:00)
--- NOTE | 2024-05-20 10:34 | CT ---
EXAMINATION: ABDOMEN/PELVIS W/O CON HISTORY: RIGHT RENAL COLIC, LOWER ABD PAIN; APPY, HTN, COPD, DM, CAD COMPARISON: CT pelvis 11/19/2021. TECHNIQUE: Contiguous noncontrast axial CT images of the abdomen and pelvis. Images reviewed in the axial imagi ng plane with reformatted sagittal and coronal images.The above CT scan was done with automated expos ure control and the mA and kV was adjusted to obtain quality images according to patient size. FINDINGS: Details are limited for evaluating the organs since intravenous and oral contrast were not used. The liver measures 11 by 24 by 13 cm. The gallbladder is not definitively seen which should be correlated with medical records. No bile du ct dilatation. No pancreatic duct dilatation. Spleen, adrenal glands appear intact. Kidneys normal size and position. There is a 1.5 cm oval-shaped stone in the right renal pelvis with fullness of the right renal pelvis. 0.9 cm oval-shaped stone in the posterior central right kidney. Fusiform shaped aneurysmal dilatation proximal abdominal aorta measuring 3.1 cm diameter; fusiform sh aped aneurysmal dilatation mid abdominal aorta 3.1 cm; fusiform shaped infrarenal abdominal aortic an eurysm 3.2 cm diameter. Scattered arterial vascular calcifications aorta and branch vessels. Details of the GI tract are limited since oral contrast was not used. Generally no evidence of bowel obstruction. Numerous colonic diverticuli. Moderate amount of feces. Urinary bladder mildly distended with urine. Mild diffuse thickening of the villalobos of the urinary diana dder. The uterus appears to be located in the right pelvis and contains coarse calcifications probable dege nerated uterine fibroids. There is a 2.1 x 2.7 cm low-density mass central uterus density measuremen t 12 Hounsfield units which may be a cystic lesion of the uterus, possible lesion within the endometr ium. There is a 6.7 x 5 x 3.6 cm mass along the left adnexa central density 22 Hounsfield units susp ect ovarian lesion as has been previously described. Moderate to severe spondylosis. Severe compression fracture T12 vertebral body which has a diffuse s clerotic appearance. The fracture may be chronic which should be closely clinically correlated. Images through lower chest demonstrate coarse opacities in the posterior lower lobes. IMPRESSION: Stones within the right kidney as described above. 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 Numerous colonic diverticuli. Mild diffuse thickening of the villalobos of the urinary bladder. Nonspecific 2.7 cm region of low-density in the central uterus which may be a cystic lesion of the ut erus, possible lesion within the endometrium. Large soft tissue mass along the left adnexa probably related to the left ovary as has been previously described. Recommend correlation with transabdomina l and transvaginal ultrasound of the pelvis, possible MRI of the pelvis without and with IV contrast. Severe compression fracture T12 vertebral body which has a diffuse sclerotic appearance. Recommend c orrelation with clinical history and physical examination. THIS IS AN ELECTRONICALLY VERIFIED FINAL REPORT 05/20/2024 10:31 AM - Electronically signed by Linda Mcdonald MD
[2024-05-20] MEDS: NS + KCL 20 MEQ/L 1,000 ML with MAGNESIUM SULFATE 50% INJ VIAL 1 G IV SCH (10:41)
[2024-05-20] MEDS: DUONEB 0.5 MG/3 MG (3 mL) NEB PRN (16:17)
[2024-05-20] MEDS: COLACE CAP 100 MG PO PRN (16:37)
[2024-05-20] MEDS: MILK OF MAGNESIA PO PRN (16:38)
[2024-05-20] MEDS: VISTARIL PO PRN (16:47)
[2024-05-20] MEDS: NORVASC TAB 5 MG PO SCH (18:32)
[2024-05-20] MEDS: AMBIEN PO PRN (22:28)
[2024-05-21 05:58] LABS: BASOPHILS % (AUTO) 0.4 % (0.2-1.0); EOSINOPHILS # (AUTO) 0.2 x10^3/uL (0.0-0.2); HEMATOCRIT 30.6 % (36.0-47.0); HEMOGLOBIN 9.9 g/dL (12.0-16.0); LYMPHOCYTES # (AUTO) 2.2 X10^3/uL (1.3-2.9); LYMPHOCYTES % (AUTO) 38.4 % (21.0-51.0); MEAN CORPUSCULAR HEMOGLOBIN 25.4 pg (27.0-34.0); MEAN CORPUSCULAR HGB CONC 32.5 g/dL (33.0-35.0); MEAN CORPUSCULAR VOLUME 78.2 fL (80.0-100.0); MEAN PLATELET VOLUME 8.4 fL (7.4-11.0); MONOCYTES # (AUTO) 0.5 x10^3/uL (0.3-0.8); MONOCYTES % (AUTO) 9.1 % (0.0-13.0); NEUTROPHILS # (AUTO) 2.7 x10^3/uL (2.2-4.8); NEUTROPHILS % (AUTO) 48.1 % (42.0-75.0); PLATELET COUNT 210 X10^3/uL (150.0-450.0); RED BLOOD COUNT 3.91 X10^6/uL (3.5-5.4); RED CELL DISTRIBUTION WIDTH 16.6 % (11.6-16.5); WHITE BLOOD COUNT 5.7 X10^3/uL (3.6-10.0)
[2024-05-21 06:11] LABS: ALANINE AMINOTRANSFERASE 7 Units/L (12-78); ALBUMIN 1.9 g/dL (3.4-5.0); ALKALINE PHOSPHATASE 109 Units/L (46-116); ASPARTATE AMINO TRANSFERASE 17 Units/L (15-37); BLOOD UREA NITROGEN 10 mg/dL (7-18); CALCIUM 8.5 mg/dL (8.5-10.1); CARBON DIOXIDE 27.3 mmol/L (21-32); CHLORIDE 109 mmol/L (98-107); COR CA(FOR HYPOALB) 10.2 mg/dL (8.5-10.1); CREATININE 0.59 mg/dL (0.55-1.02); GLUCOSE 90 mg/dL (65-99); MAGNESIUM 2.2 mg/dL (2.0-2.9); POTASSIUM 4.1 mmol/L (3.5-5.1); SODIUM 143 mmol/L (136-145); TOTAL PROTEIN 5.6 g/dL (6.4-8.2); eGFR NON BLACK RACES > 60 (>60)
[2024-05-21 07:45] VITALS: PULSE 79; TEMP 97.9; O2SAT 99
[2024-05-21] MEDS: NS 1,000 ML IV 1,000 ML IV SCH (08:15)
[2024-05-21 09:02] VITALS: BP 160/70
[2024-05-21] MEDS: SOLU-Medrol 40 MG VIAL IVP ONE (09:12)
[2024-05-21 09:47] VITALS: RESP 18
[2024-05-21] MEDS: DULCOLAX SUPPOSITORY 10 MG RECTAL ONE (09:51)
== END 2024-05-21 10:30 | disposition home health service (06) ==
LOC: MED/SURG
PROVIDERS: ADMIT Internal Medicine; ATTEND Internal Medicine
DX: M19.90 Unspecified osteoarthritis, unspecified site; R30.0 Dysuria; M06.80 Other specified rheumatoid arthritis, unspecified site; N13.6 Pyonephrosis; M48.54XA Collapsed vertebra, not elsewhere classified, thoracic region, initial encounter for fracture; J44.9 Chronic obstructive pulmonary disease, unspecified; E11.65 Type 2 diabetes mellitus with hyperglycemia; R10.84 Generalized abdominal pain; K21.9 Gastro-esophageal reflux disease without esophagitis; R31.9 Hematuria, unspecified; R53.1 Weakness; N20.0 Calculus of kidney; I10 Essential (primary) hypertension; Z91.81 History of falling; I25.10 Atherosclerotic heart disease of native coronary artery without angina pectoris; E83.42 Hypomagnesemia

== ENCOUNTER 2024-06-02 19:18 | Observation (INO) ==
[2024-06-02 20:52] LABS: BASOPHILS # (AUTO) 0.1 X10^3/uL (0.0-0.1); BASOPHILS % (AUTO) 1.8 % (0.2-1.0); EOSINOPHILS # (AUTO) 0.3 x10^3/uL (0.0-0.2); EOSINOPHILS % (AUTO) 4.2 % (0.9-2.9); HEMATOCRIT 30.4 % (36.0-47.0); HEMOGLOBIN 9.9 g/dL (12.0-16.0); LYMPHOCYTES % (AUTO) 32.1 % (21.0-51.0); MEAN CORPUSCULAR HEMOGLOBIN 25.6 pg (27.0-34.0); MEAN CORPUSCULAR HGB CONC 32.7 g/dL (33.0-35.0); MEAN CORPUSCULAR VOLUME 78.2 fL (80.0-100.0); MEAN PLATELET VOLUME 8.1 fL (7.4-11.0); MONOCYTES # (AUTO) 0.5 x10^3/uL (0.3-0.8); MONOCYTES % (AUTO) 7.7 % (0.0-13.0); NEUTROPHILS # (AUTO) 3.3 x10^3/uL (2.2-4.8); NEUTROPHILS % (AUTO) 54.2 % (42.0-75.0); PLATELET COUNT 218 X10^3/uL (150.0-450.0); RED BLOOD COUNT 3.89 X10^6/uL (3.5-5.4); RED CELL DISTRIBUTION WIDTH 17.7 % (11.6-16.5); WHITE BLOOD COUNT 6.1 X10^3/uL (3.6-10.0)
[2024-06-02 21:03] LABS: ALANINE AMINOTRANSFERASE 8 Units/L (12-78); ALBUMIN 2.2 g/dL (3.4-5.0); ALKALINE PHOSPHATASE 125 Units/L (46-116); ASPARTATE AMINO TRANSFERASE 15 Units/L (15-37); BLOOD UREA NITROGEN 13 mg/dL (7-18); CALCIUM 9.3 mg/dL (8.5-10.1); CARBON DIOXIDE 31.1 mmol/L (21-32); CHLORIDE 103 mmol/L (98-107); COR CA(FOR HYPOALB) 10.7 mg/dL (8.5-10.1); COR NA(FOR HYPERGLY) 141 mmol/L (136-145); CREATININE 0.77 mg/dL (0.55-1.02); GLUCOSE 127 mg/dL (65-99); POTASSIUM 3.8 mmol/L (3.5-5.1); SODIUM 140 mmol/L (136-145); TOTAL PROTEIN 6.3 g/dL (6.4-8.2); eGFR NON BLACK RACES > 60 (>60)
[2024-06-02] MEDS: SOLU-Medrol 40 MG VIAL IVP SCH (21:24)
[2024-06-02] MEDS: TORADOL 15 MG VIAL IVP PRN (21:25)
[2024-06-02] MEDS: RESTORIL CAP 15 MG PO PRN (21:25)
[2024-06-02 21:26] VITALS: BMI 14.8
[2024-06-02] MEDS: NS 1,000 ML IV 1,000 ML IV SCH (21:29)
[2024-06-02] MEDS: PEPCID TAB 20 MG PO SCH (22:00)
--- NOTE | 2024-06-02 23:01 | CT ---
EXAM:ABDOMEN W/O CONHISTORY:Intractable back pain, renal calculi;COMPARISON:05/20/2024.TECHNIQUE: Nonenhanced spiral CT imaging was performed through the abdomen and axial, coronal, and sagittal CT images were generated.FINDINGS:There is stranding in the bilateral lung bases suggestive of scarring. There is also air trapping in the lower lobes. There is no pleural effusion. Heart size is normal. There is atherosclerosis in the LAD and RCA. There is heavy atherosclerosis in the aorta but no dissection. The ascending aorta measures 3.2 cm in diameter. The gallbladder is poorly defined. Pancreas is somewhat atrophic. Spleen and adrenal glands are normal. There is no stone or hydronephrosis on the left side. There is a stone in the right renal pelvis which measures 1.4 cm diameter and a stone in the collecting system which measures 8 mm in diameter. The visualized bowel loops are grossly unremarkable. There is heavy atherosclerosis in the abdominal aorta with the caliber ranging up to 2.9 cm. There is an old anterior wedge compression deformity of T12 and stable anterolisthesis of L3 on L4. There is severe spinal stenosis at L3-L4 and severe degeneration at other levels as well.IMPRESSION:1. The stone in the right renal pelvis may be causing obstruction.2. There is severe degeneration of the lumbar spine which may also be the cause of the pain.THIS IS AN ELECTRONICALLY VERIFIED FINAL REPORT06/02/2024 10:58 PM - Electronically signed by Fernando Mosley MD
[2024-06-03] MEDS ORDERED: PEPCID TAB 20 MG PO PRN (01:13)
--- NOTE | 2024-06-03 07:15 | RAD ---
EXAM:CHEST, 1 VIEWHISTORY:Intractable back pain;COMPARISON:No relevant prior studies were available for comparison at the time of interpretation.TECHNIQUE:CHEST, 1 VIEWFINDINGS:Chest:Lines and tubes: NoneMediastinum: Cardiac and mediastinal shadow is within normal limits for size and contour.Pulmonary vessels: No pulmonary vascular congestion.Lung solis: Interstitial markings and hyperinflation of the lungs with diaphragmatic flattening.Pleura: No effusion. No pneumothorax.Bones and soft tissues: No acute osseous or soft tissue abnormality.IMPRESSION:1. No acute cardiopulmonary abnormality2. Stigmata of COPDTHIS IS AN ELECTRONICALLY VERIFIED FINAL REPORT06/03/2024 7:11 AM - Electronically signed by Hernandez Zavala MD
[2024-06-03] MEDS ORDERED: AMBIEN PO PRN (08:33)
[2024-06-03] MEDS: PERCOCET TAB 5/325 MG PO PRN (09:04)
[2024-06-03] MEDS: NEURONTIN CAP 400 MG PO SCH (10:27)
[2024-06-03] MEDS: LIPITOR TAB 40 MG PO SCH (10:27)
[2024-06-03] MEDS: MORPHINE SULFATE INJ 2 MG INJ IVP PRN (10:32)
[2024-06-03 15:24] LABS: BILIRUBIN,URINE NEGATIVE (NEGATIVE); BLOOD/HEMOGLOBIN,URINE 5+ (NEGATIVE); GLUCOSE, URINE NEGATIVE (NEGATIVE); KETONES,URINE 1+ (NEGATIVE); LEUKOCYTE ESTERASE ,URINE 3+ (NEGATIVE); NITRITES,URINE NEGATIVE (NEGATIVE); PROTEIN,URINE 3+ (NEGATIVE); UROBILINOGEN,URINE NORMAL (NORMAL)
[2024-06-03 15:35] LABS: APPEARANCE,URINE CLOUDY (CLEAR); BACTERIA,URINE TRACE /HPF (NEGATIVE); COLOR,URINE YELLOW (YELLOW); SQUAMOUS EPITHELIAL CELL,UR FEW /HPF (NEGATIVE)
[2024-06-03 15:36] LABS: YEAST,URINE RARE /HPF (NEGATIVE)
[2024-06-03] MEDS: NICOTINE PATCH TD SCH (16:04)
--- NOTE | 2024-06-03 17:40 | DR.H&P ---
H&P History & Physical for Day of: H&P Date: 06/02/24 Chief Complaint Chief Complaint: severe back pain, burning with urination History of Present Illness History of Present Illness: PT IS 83 BF, DIRECT ADMIT PER DR CULLEN WITH CO INTRACTABLE BACK PAIN. PT WAS AT DR LERMA'S OFFICE WITH FOR A FOLLOW UP FOR RIGHT INTRARENAL STONE AND HX OF UTI. PT HAS TAKEN A ROUND OF PO ATBX AND COMPLETED nitrofurantoin LAST WEEK. DR LERMA SPOKE WITH DR CULLEN ABOUT PT'S INTRACTABLE PAIN AND PT WAS ADMITTED FOR REPEAT CT ABD/PELVIS AND MRI OF LSPINE. PT HAS HX OF RA, SEVERE DDD AND T SPINE COMPRESSION FRACTURE. PT HAS PMH OF DM, COPD, BED CONFINEMENT, OA, HTN, GERD, CAD AND RA. Past Medical History Past Medical History: Arthritis, COPD, Coronary Artery Disease, Diabetes, GERD, Hypertension and [place] Past Surgical History Surgical History: Appendectomy and Ortho Surgery Family History Family Medical History: [place] and Coronary Artery Disease Social History Does any household member use tobacco: No Alcohol Use: None Drug Use: None Medications Home Medications: Home Medications Medication Instructions Recorded Confirmed Type atorvastatin 40 mg tablet 40 mg PO QDAY 12/29/23 06/03/24 History gabapentin 400 mg capsule 400 mg PO QID 12/29/23 06/03/24 History oxycodone-acetaminophen 10 mg-325 1 tab PO QID PRN 12/29/23 06/03/24 History mg tablet pantoprazole 40 mg tablet,delayed 40 mg PO BID 12/29/23 06/03/24 History release zolpidem 5 mg tablet 2.5 mg PO QPM PRN 06/03/24 06/03/24 History Allergies Allergies Allergy/AdvReac Type Severity Reaction Status Date / Time No Known Drug Allergies Allergy Unknown Verified 10/13/23 15:46 Labs 06/02/24 20:30 06/02/24 20:30 Labs: Laboratory WBC 6.1 X10^3/uL (3.6-10.0) 06/02/24 20:30 RBC 3.89 X10^6/uL (3.5-5.4) 06/02/24 20:30 Hgb 9.9 g/dL (12.0-16.0) L 06/02/24 20:30 Hct 30.4 % (36.0-47.0) L 06/02/24 20:30 MCV 78.2 fL (80.0-100.0) L 06/02/24 20:30 MCH 25.6 pg (27.0-34.0) L 06/02/24 20:30 MCHC 32.7 g/dL (33.0-35.0) L 06/02/24 20:30 RDW 17.7 % (11.6-16.5) H 06/02/24 20:30 Plt Count 218 X10^3/uL (150.0-450.0) 06/02/24 20:30 MPV 8.1 fL (7.4-11.0) 06/02/24 20: Neut % (Auto) 54.2 % (42.0-75.0) 06/02/24 20:30 Lymph % (Auto) 32.1 % (21.0-51.0) 06/02/24 20: [place] % (Auto) 7.7 % (0.0-13.0) 06/02/24 20: Eos % (Auto) 4.2 % (0.9-2.9) H 06/02/24 20:30 Baso % (Auto) 1.8 % (0.2-1.0) H 06/02/24 20:30 Neut # (Auto) 3.3 x10^3/uL (2.2-4.8) 06/02/24 20:30 Lymph # (Auto) 2.0 X10^3/uL (1.3-2.9) 06/02/24 20:30 [place] # (Auto) 0.5 x10^3/uL (0.3-0.8) 06/02/24 20:30 Eos # (Auto) 0.3 x10^3/uL (0.0-0.2) H 06/02/24 20:30 Baso # (Auto) 0.1 X10^3/uL (0.0-0.1) 06/02/24 20:30 Absolute Nucleated RBC 0.0 /100WBC 06/02/24 20:30 Sodium 140 mmol/L (136-145) 06/02/24 20:30 Corrected Sodium 141 mmol/L (136-145) 06/02/24 20:30 Potassium 3.8 mmol/L (3.5-5.1) 06/02/24 20:30 Chloride 103 mmol/L (98-107) 06/02/24 20:30 Carbon Dioxide 31.1 mmol/L (21-32) 06/02/24 20:30 BUN 13 mg/dL (7-18) 06/02/24 20:30 Creatinine 0.77 mg/dL (0.55-1.02) 06/02/24 20:30 Est GFR (MDRD) Af Amer > 60 (>60) 06/02/24 20:30 Est GFR (MDRD) Non-Af > 60 (>60) 06/02/24 20:30 Glucose 127 mg/dL (65-99) H 06/02/24 20:30 Calcium 9.3 mg/dL (8.5-10.1) 06/02/24 20:30 Corrected Calcium 10.7 mg/dL (8.5-10.1) H 06/02/24 20:30 Total Bilirubin 0.20 mg/dL (0.2-1.0) 06/02/24 20:30 AST 15 Units/L (15-37) 06/02/24 20:30 ALT 8 Units/L (12-78) L 06/02/24 20:30 Alkaline Phosphatase 125 Units/L (46-116) H 06/02/24 20:30 Total Protein 6.3 g/dL (6.4-8.2) L 06/02/24 20:30 Albumin 2.2 g/dL (3.4-5.0) L 06/02/24 20:30 Globulin 4.1 g/dL (2.5-4.5) 06/02/24 20:30 Albumin/Globulin Ratio 0.5 Ratio (1.1-2.1) L 06/02/24 20:30 Specimen Type Clean catch urine 06/03/24 15:00 Urine Color Yellow (YELLOW) 06/03/24 15:00 Urine Appearance Cloudy (CLEAR) 06/03/24 15:00 Urine pH 6.0 (5.0 - 8.0) 06/03/24 15:00 Ur Specific [place] 1.025 (1.000-1.030) 06/03/24 15:00 Urine Protein 3+ (NEGATIVE) 06/03/24 15:00 Urine Glucose (UA) Negative (NEGATIVE) 06/03/24 15:00 Urine Ketones 1+ (NEGATIVE) 06/03/24 15:00 Urine Blood 5+ (NEGATIVE) 06/03/24 15:00 Urine Nitrite Negative (NEGATIVE) 06/03/24 15:00 Urine Bilirubin Negative (NEGATIVE) 06/03/24 15:00 Urine Urobilinogen Normal (NORMAL) 06/03/24 15:00 Ur Leukocyte Esterase 3+ (NEGATIVE) 06/03/24 15:00 Urine RBC 3-5 /HPF (0-3) A 06/03/24 15:00 Urine WBC Tntc /HPF (0-5) A 06/03/24 15:00 Ur Squamous Epith Cells Few /HPF (NEGATIVE) 06/03/24 15:00 Urine Bacteria Trace /HPF (NEGATIVE) 06/03/24 15:00 Urine Yeast Rare /HPF (NEGATIVE) 06/03/24 15:00 Ur Culture Indicated? Yes/culture set up 06/03/24 15:00 Review of Systems Constitutional: Weakness and Malaise Eyes: No Symptoms Reported ENT: Nose Discharge, Nose Congestion and Throat Pain Respiratory: Cough, Shortness of Breath and Sputum Cardiovascular: No Symptoms Reported Gastrointestinal: Constipation Genitourinary: Dysuria and Frequency Musculoskeletal: Back Pain Skin: No Symptoms Reported Neurological: Weakness Physical Exam Vital Signs: Vital Signs Temperature 98.1 F Pulse Rate [Left Radial] 94 Respiratory Rate 17 Respiratory Rate 16 Respiratory Rate 17 Respiratory Rate 17 Respiratory Rate 18 Respiratory Rate 18 Respiratory Rate 16 Respiratory Rate 16 Blood Pressure [Left Arm] 166/81 O2 Sat by Pulse Oximetry 96 Oriented: Normal Eyes: Normal Ear: Normal Nose: Normal Throat: Exudate Respiratory: RLL Diminished and LLL Diminished Cardiovascular: Normal : Normal Auscultation: Bowel Sounds: Normal Palpation: Normal Tenderness: Suprapubic Skin: Decreased Turgur Musculoskeletal: Back:Thoracic and Back:Lumbar Psychiatric: Anxiety Mood Description: Anxious Affect: Anxious Speech Pattern: Clear and Appropriate Assessment/Plan (1) Intractable back pain: Status: Acute Plan: ADMIT, IV HYDRATION ADMISSION LABS, BP AND BS CONTROL CT ABD/PELVIS PAIN CONTROL VERIFY HOME MEDICATIONS SOLU MEDROL, MRI LSPINE (2) UTI (urinary tract infection): Status: Acute (3) Compression fx, thoracic spine: Status: Acute (4) Kidney stone on right side: Status: Acute (5) COPD (chronic obstructive pulmonary disease): Status: Acute (6) Diabetes mellitus: Status: Acute (7) GERD (gastroesophageal reflux disease): Status: Acute (8) Hypertension: Status: Acute (9) Gastroesophageal reflux disease: Status: Acute
[2024-06-03] MEDS: PROTONIX TAB 40 MG PO SCH (18:16)
[2024-06-03] MEDS: NYSTATIN OINT TOP SCH (18:18)
--- NOTE | 2024-06-03 19:09 | MRI ---
EXAM:LUMBAR W/O COOHISTORY:Intractable back pain, renal calculi;COMPARISON:CT abdomen/pelvis from May 20, 2024 and June 02, 2024.TECHNIQUE:MRI of the lumbar spine were obtained without the administration of IV contrast utilizing a routine protocol.FINDINGS:60% vertebral body height loss at T12, without significant retropulsion, and no abnormal T2 signal in the associated marrow.Vertebral bodies are in normal alignment.Imaged portion of the spinal cord appears normal.Conus medullaris is at the T12-L1 level.Cauda equina appears grossly normal.Soft tissues are unremarkable.Levels:T12-L1: No significant posterior disc bulge, central canal stenosis or neural foraminal narrowing.L1-L2: Mild broad-based anterior and posterior disc osteophyte complexes. No significant central canal stenosis or neural foraminal narrowing.L2-L3: Severe intervertebral disc space height loss with Modic type endplate degenerative changes. [id number] anterior and posterior disc osteophyte complex formation. Moderate central canal stenosis secondary to the posterior disc bulge and facet hypertrophy. Moderate facet degenerative changes. Severe bilateral neural foraminal narrowing.L3-L4: Severe intervertebral disc space height loss. Broad-based [id number] anterior and posterior disc osteophyte complexes. Severe central canal stenosis secondary to the posterior disc osteophyte complex, facet hypertrophy and ligamentum flavum hypertrophy. Modic type endplate degenerative changes. Severe bilateral neural foraminal narrowing.L4-L5: No significant interval tubal disc space height loss.Mild broad-based anterior and posterior disc osteophyte complexes. Mild central canal stenosis secondary to the posterior disc bulge, ligamentum flavum hypertrophy and facet hypertrophy. Mild facet degenerative changes. [id number] central canal stenosis. Moderate bilateral neural foraminal narrowing.L5-S1: Mild intervertebral disc space height loss with disc desiccation. Moderate broad-based anterior and mild broad-based posterior disc osteophyte complexes. Mild central canal stenosis secondary to the posterior disc bulge, ligamentum flavum hypertrophy and facet hypertrophy.Moderate to severe bilateral neural foraminal narrowing.IMPRESSION:1. Subacute compression fracture at T12 with 60% height loss. No significant retropulsion.2. Multilevel degenerative disc/joint changes as described above resulting in central canal stenosis and neural foraminal narrowing.THIS IS AN ELECTRONICALLY VERIFIED FINAL REPORT06/03/2024 7:06 PM - Electronically signed by Kendall Laura MD
[2024-06-03] MEDS: NORVASC TAB 5 MG PO SCH (21:19)
[2024-06-03] MEDS: ROCEPHIN VIAL 1 GRAM 1 G in NS 100 ML IV 100 ML IV SCH (21:22)
[2024-06-03] MEDS: SOLU-Medrol 40 MG VIAL IVP SCH (21:47)
[2024-06-04 05:39] LABS: BASOPHILS % (AUTO) 0.1 % (0.2-1.0); HEMATOCRIT 27.7 % (36.0-47.0); LYMPHOCYTES # (AUTO) 1.6 X10^3/uL (1.3-2.9); MEAN CORPUSCULAR HEMOGLOBIN 25.3 pg (27.0-34.0); MEAN CORPUSCULAR HGB CONC 32.7 g/dL (33.0-35.0); MEAN CORPUSCULAR VOLUME 77.4 fL (80.0-100.0); MEAN PLATELET VOLUME 8.3 fL (7.4-11.0); MONOCYTES # (AUTO) 0.5 x10^3/uL (0.3-0.8); MONOCYTES % (AUTO) 9.2 % (0.0-13.0); NEUTROPHILS # (AUTO) 3.2 x10^3/uL (2.2-4.8); NEUTROPHILS % (AUTO) 60.7 % (42.0-75.0); PLATELET COUNT 208 X10^3/uL (150.0-450.0); RED BLOOD COUNT 3.57 X10^6/uL (3.5-5.4); RED CELL DISTRIBUTION WIDTH 17.9 % (11.6-16.5); WHITE BLOOD COUNT 5.2 X10^3/uL (3.6-10.0)
[2024-06-04 05:53] LABS: ALANINE AMINOTRANSFERASE < 6 Units/L (12-78); ALBUMIN 1.9 g/dL (3.4-5.0); ALKALINE PHOSPHATASE 127 Units/L (46-116); ASPARTATE AMINO TRANSFERASE 13 Units/L (15-37); BLOOD UREA NITROGEN 20 mg/dL (7-18); CALCIUM 8.8 mg/dL (8.5-10.1); CARBON DIOXIDE 27.4 mmol/L (21-32); CHLORIDE 105 mmol/L (98-107); COR CA(FOR HYPOALB) 10.5 mg/dL (8.5-10.1); COR NA(FOR HYPERGLY) 141 mmol/L (136-145); CREATININE 0.62 mg/dL (0.55-1.02); GLUCOSE 169 mg/dL (65-99); MAGNESIUM 1.6 mg/dL (2.0-2.9); POTASSIUM 3.9 mmol/L (3.5-5.1); SODIUM 139 mmol/L (136-145); TOTAL PROTEIN 5.6 g/dL (6.4-8.2); eGFR NON BLACK RACES > 60 (>60)
[2024-06-04] MEDS: PYRIDIUM PO SCH (06:14)
[2024-06-04] MEDS: PERCOCET TAB 5/325 MG PO PRN (13:14)
[2024-06-04] MEDS: PERCOCET TAB 5/325 MG PO ONE (15:39)
[2024-06-04] MEDS: PERCOCET TAB 5/325 MG ONE (16:04)
[2024-06-04] MEDS: TYLENOL 325 MG TAB PO PRN (20:48)
[2024-06-04] MEDS: ROXICODONE TAB 15 MG PO PRN (20:48)
[2024-06-05 06:40] LABS: BASOPHILS % (AUTO) 0.2 % (0.2-1.0); HEMATOCRIT 29.8 % (36.0-47.0); HEMOGLOBIN 9.8 g/dL (12.0-16.0); LYMPHOCYTES # (AUTO) 0.9 X10^3/uL (1.3-2.9); LYMPHOCYTES % (AUTO) 19.6 % (21.0-51.0); MEAN CORPUSCULAR HEMOGLOBIN 25.6 pg (27.0-34.0); MEAN CORPUSCULAR HGB CONC 32.8 g/dL (33.0-35.0); MEAN CORPUSCULAR VOLUME 77.9 fL (80.0-100.0); MEAN PLATELET VOLUME 8.8 fL (7.4-11.0); MONOCYTES # (AUTO) 0.2 x10^3/uL (0.3-0.8); MONOCYTES % (AUTO) 3.5 % (0.0-13.0); NEUTROPHILS # (AUTO) 3.4 x10^3/uL (2.2-4.8); NEUTROPHILS % (AUTO) 76.7 % (42.0-75.0); PLATELET COUNT 214 X10^3/uL (150.0-450.0); RED BLOOD COUNT 3.82 X10^6/uL (3.5-5.4); RED CELL DISTRIBUTION WIDTH 17.9 % (11.6-16.5); WHITE BLOOD COUNT 4.4 X10^3/uL (3.6-10.0)
[2024-06-05 07:01] LABS: ALANINE AMINOTRANSFERASE 10 Units/L (12-78); ALBUMIN 2.1 g/dL (3.4-5.0); ALKALINE PHOSPHATASE 128 Units/L (46-116); ASPARTATE AMINO TRANSFERASE 14 Units/L (15-37); BLOOD UREA NITROGEN 15 mg/dL (7-18); CALCIUM 8.6 mg/dL (8.5-10.1); CARBON DIOXIDE 27.6 mmol/L (21-32); CHLORIDE 103 mmol/L (98-107); COR CA(FOR HYPOALB) 10.1 mg/dL (8.5-10.1); COR NA(FOR HYPERGLY) 141 mmol/L (136-145); CREATININE 0.58 mg/dL (0.55-1.02); GLUCOSE 219 mg/dL (65-99); MAGNESIUM 1.5 mg/dL (2.0-2.9); POTASSIUM 3.8 mmol/L (3.5-5.1); SODIUM 138 mmol/L (136-145); eGFR NON BLACK RACES > 60 (>60)
[2024-06-05] MEDS ORDERED: CONSULT PHARMACY - POTASSIUM & MAGNESIUM XX SCH (08:00)
[2024-06-05] MEDS: K-DUR TAB 20 MEQ PO SCH (08:22)
[2024-06-05] MEDS: MAG-OX TAB PO SCH (08:25)
[2024-06-05 09:56] VITALS: BP 172/81; PULSE 81; RESP 19; TEMP 98.3; O2SAT 96
[2024-06-05] MEDS: DURAGESIC 12 MCG/HR PATCH TD SCH (11:21)
[2024-06-05] MEDS: TORADOL 30 MG VIAL IVP ONE (11:21)
== END 2024-06-05 12:25 | disposition home health service (06) ==
LOC: MED/SURG
PROVIDERS: ADMIT Internal Medicine; ATTEND Internal Medicine

== ENCOUNTER 2024-12-13 08:57 | Observation (INO) ==
--- NOTE | 2024-12-13 09:19 | DR.GENAD ---
HPI Time Seen Time Seen by Provider: 12/13/24 09:17 Complaint/Symptoms Chief Complaint Doctors Comments: 84-year-old female from home via EMS with weakness Body aches bilateral flank pain patient has a history of renal stones And chronic muscle pain PMH PMH Past Medical History: Arthritis, COPD, Coronary Artery Disease, Diabetes, GERD, Hypertension and [place] Past Surgical History: Yes Surgical History: Appendectomy and Other Family History Family Medical History: Diabetes Mellitus, Cancer, [place] and Coronary Artery Disease Social History Do you use any recreational Drugs:: No ROS Review of Systems Constitutional: No Symptoms Reported Eyes: No Symptoms Reported ENTM: No Symptoms Reported Respiratoy: No Symptoms Reported Cardiovascular: No Symptoms Reported Gastrointestinal/Abdominal: No Symptoms Reported Genitourinary: See HPI, Frequency, Pain and Other (Bilateral flank pain) Neurological: No Symptoms Reported Musculoskeletal: No Symptoms Reported and See HPI (Generalized body aches and muscle pain) Integumentary: No Symptoms Reported Hematologic/Lymphatic: No Symptoms Reported Endocrine: No Symptoms Reported Psychiatric: No Symptoms Reported All Other Systems: Reviewed and Negative PE Vital Signs Vitals: Vital Signs Temperature 98.1 F Pulse Rate 70 Pulse Rate 68 Pulse Rate 66 Pulse Rate 72 Pulse Rate 76 Pulse Rate 79 Pulse Rate 82 Pulse Rate 83 Pulse Rate 83 Pulse Rate 89 Respiratory Rate 39 Respiratory Rate 44 Respiratory Rate 30 Respiratory Rate 15 Respiratory Rate 17 Respiratory Rate 19 Respiratory Rate 18 Respiratory Rate 20 Respiratory Rate 23 Respiratory Rate 18 Blood Pressure 153/68 Blood Pressure 157/69 Blood Pressure 157/69 Blood Pressure 157/69 Blood Pressure 157/69 Blood Pressure 147/80 Blood Pressure 165/74 Blood Pressure 145/73 O2 Sat by Pulse Oximetry 96 O2 Sat by Pulse Oximetry 96 O2 Sat by Pulse Oximetry 97 O2 Sat by Pulse Oximetry 95 O2 Sat by Pulse Oximetry 95 O2 Sat by Pulse Oximetry 87 O2 Sat by Pulse Oximetry 88 O2 Sat by Pulse Oximetry 95 General Limitations: No Limitations General Appearance: Alert and In No Apparent Distress Head Head Exam: Normal Inspection Eyes Eye exam: Normal Appearance ENT ENT Exam: Normal Exam External Ear Exam: Normal External Inspection TM/Canal Exam: Bilateral: Normal Nose Exam: Normal Nose Exam Mouth Exam: Normal Inspection Throat Exam: Normal Inspection Neck Neck Exam: Normal Inspection Chest Chest Inspection: Normal Inspection Respiratory Respiratory Exam: Normal Lung Sounds Bilat Respiratory Exam: Bilateral: Clear to Auscultation Cardiovascular Cardiovascular Exam: Regular Rate and Normal Rhythm Abdominal Exam Abdominal Exam: Normal Inspection, Normal Bowel Sounds and Soft Extremities Extremities Exam: Normal Inspection Back Back Exam: Normal Inspection Neurologic Neurological Exam: Alert and Oriented X3 Psychiatric Psychiatric Exam: Normal Affect and Normal Mood Skin Skin Exam: Warm, Dry, Intact and Normal Color COURSE Treatment Treatment: Cussed findings with patient and family wrist benefits and options discussed in detail questions answered. Family feels patient needs to be admitted for generalized weakness unable to care for herself at home. Discussed with hospitalist for admission Nursing staff discussed with nurse practitioner will admit to Dr.Sinclair BARRETT Labs Reviewed 12/13/24 09:34 12/13/24 09:34 Laboratory: WBC 5.4 X10^3/uL (3.6-10.0) 12/13/24 09:34 RBC 4.52 X10^6/uL (3.5-5.4) 12/13/24 09:34 Hgb 10.4 g/dL (12.0-16.0) L 12/13/24 09:34 Hct 33.1 % (36.0-47.0) L 12/13/24 09:34 MCV 73.2 fL (80.0-100.0) L 12/13/24 09:34 MCH 22.9 pg (27.0-34.0) L 12/13/24 09:34 MCHC 31.3 g/dL (33.0-35.0) L 12/13/24 09:34 RDW 18.1 % (11.6-16.5) H 12/13/24 09:34 Plt Count 198 X10^3/uL (150.0-450.0) 12/13/24 09:34 Plt Count Comment Adequate (ADEQUATE) 12/13/24 09:34 MPV 8.0 fL (7.4-11.0) 12/13/24 09:34 Neut % (Auto) 58.9 % (42.0-75.0) 12/13/24 09:34 Lymph % (Auto) 28.5 % (21.0-51.0) 12/13/24 09:34 [place] % (Auto) 8.7 % (0.0-13.0) 12/13/24 09:34 Eos % (Auto) 3.5 % (0.9-2.9) H 12/13/24 09:34 Baso % (Auto) 0.4 % (0.2-1.0) 12/13/24 09:34 Neut # (Auto) 3.2 x10^3/uL (2.2-4.8) 12/13/24 09:34 Lymph # (Auto) 1.6 X10^3/uL (1.3-2.9) 12/13/24 09:34 [place] # (Auto) 0.5 x10^3/uL (0.3-0.8) 12/13/24 09:34 Eos # (Auto) 0.2 x10^3/uL (0.0-0.2) 12/13/24 09:34 Baso # (Auto) 0.0 X10^3/uL (0.0-0.1) 12/13/24 09:34 Absolute Nucleated RBC 0.0 /100WBC 12/13/24 09:34 Plt Morphology Comment Normal (NORMAL) 12/13/24 09:34 RBC Morphology Abnormal (NORMAL) A 12/13/24 09:34 Hypochromasia 1+ A 12/13/24 09:34 Anisocytosis Slight A 12/13/24 09:34 Microcytosis Slight A 12/13/24 09:34 Target Cells Slight A 12/13/24 09:34 Sodium 140 mmol/L (136-145) 12/13/24 09:34 Corrected Sodium 141 mmol/L (136-145) 12/13/24 09:34 Potassium 4.0 mmol/L (3.5-5.1) 12/13/24 09:34 Chloride 104 mmol/L (98-107) 12/13/24 09:34 Carbon Dioxide 31.1 mmol/L (21-32) 12/13/24 09:34 BUN 15 mg/dL (7-18) 12/13/24 09:34 Creatinine 0.83 mg/dL (0.55-1.02) 12/13/24 09:34 Est GFR (MDRD) Af Amer > 60 (>60) 12/13/24 09:34 Est GFR (MDRD) Non-Af > 60 (>60) 12/13/24 09:34 Glucose 151 mg/dL (65-99) H 12/13/24 09:34 Calcium 9.1 mg/dL (8.5-10.1) 12/13/24 09:34 Corrected Calcium 10.3 mg/dL (8.5-10.1) H 12/13/24 09:34 Total Bilirubin 0.30 mg/dL (0.2-1.0) 12/13/24 09:34 AST 17 Units/L (15-37) 12/13/24 09:34 ALT 14 Units/L (12-78) 12/13/24 09:34 Alkaline Phosphatase 114 Units/L (46-116) 12/13/24 09:34 Total Protein 6.6 g/dL (6.4-8.2) 12/13/24 09:34 Albumin 2.5 g/dL (3.4-5.0) L 12/13/24 09:34 Globulin 4.1 g/dL (2.5-4.5) 12/13/24 09:34 Albumin/Globulin Ratio 0.6 Ratio (1.1-2.1) L 12/13/24 09:34 Specimen Type Catherized urine 12/13/24 09:30 Urine Color Yellow (YELLOW) 12/13/24 09:30 Urine Appearance Hazy (CLEAR) 12/13/24 09:30 Urine pH 6.0 (5.0 - 8.0) 12/13/24 09:30 Ur Specific [place] 1.015 (1.000-1.030) 12/13/24 09:30 Urine Protein 2+ (NEGATIVE) 12/13/24 09:30 Urine Glucose (UA) Negative (NEGATIVE) 12/13/24 09:30 Urine Ketones Negative (NEGATIVE) 12/13/24: Urine Blood 4+ (NEGATIVE) 12/13/24 09:30 Urine Nitrite Negative (NEGATIVE) 12/13/24 09:30 Urine Bilirubin Negative (NEGATIVE) 12/13/24 09:30 Urine Urobilinogen Normal (NORMAL) 12/13/24 09:30 Ur Leukocyte Esterase 3+ (NEGATIVE) 12/13/24 09:30 Urine RBC 5-10 /HPF (0-3) A 12/13/24 09:30 Urine WBC 5-10 /HPF (0-5) A 12/13/24 09:30 Ur Squamous Epith Cells Rare /HPF (NEGATIVE) 12/13/24 09: Amorphous Sediment Trace /HPF (NEGATIVE) 12/13/24 09:30 Urine Bacteria Trace /HPF (NEGATIVE) 12/13/24 09:30 Ur Culture Indicated? Yes/culture set up 12/13/24 09:30 XRAY X-ray Results: north: BRANT MCBRIDE : 1940 Sex: F Location: ER Order Number(s): [id number] Procedure(s):CT ABDOMEN/PELVIS W/O CON Ordering Physician: Bret Pillai Primary Care: Vik Harrell M.D. Service Date: 12/13/24 Service Time: 918 EXAM: ABDOMEN/PELVIS W/O CON HISTORY: Pain; COMPARISON: 07/17/2024, 10/13/2023 TECHNIQUE: CT of the abdomen and pelvis obtained without IV contrast. Study limited due to lack of IV contrast. Dose reduction techniques including Automated Exposure Control (AEC) and adjustment of mA and kV were utilized. FINDINGS: The visualized portions of the lower thorax demonstrate no acute process. Coronary calcifications. No acute osseous abnormality. Multilevel degenerative changes in the visualized spine. Grade 1 anterolisthesis of L3 on L4. Remote T12 compression deformity. The liver, spleen, pancreas, bilateral adrenal glands, and bilateral kidneys demonstrate no acute process given lack of IV contrast. Nonobstructing bilateral nephrolithiasis. The gallbladder is nonvisualized. No evidence of bowel obstruction. The appendix is not definitively visualized. No secondary signs of appendicitis. Diverticulosis without evidence of diverticulitis. The bladder is unremarkable. No free air or fluid. Infrarenal abdominal aortic aneurysm measuring up to 3.1 cm transverse.. Likely fibroid uterus. Nonspecific soft tissue mass in the left adnexa measuring up to 4.9 cm. IMPRESSION: No acute findings in the abdomen or pelvis. Diverticulosis without evidence of diverticulitis. Nonspecific left adnexal mass measuring up to 4.9 cm. This is similar dating back to 10/2023 exam and could reflect ovarian neoplasm or adenopathy. Nonobstructing bilateral nephrolithiasis. THIS IS AN ELECTRONICALLY VERIFIED FINAL REPORT 12/13/2024 10:29 AM - Electronically signed by Bret Brice MD Opioid Opioid Risk Tool Age (Hector box if 16-45): No History of Preadolescent Sexual Abuse: No Total: 0 Total Score Risk Category: Low Risk Copyright: David SIERRA predicting aberrant behaviors Discharge Plan Diagnosis Discharge Problem: Weakness, UTI (urinary tract infection) Discharge Plan Patient Disposition: ADMITTED INPATIENT Condition: Stable Prescriptions: No Action zolpidem 5 mg tablet 5 mg PO QPM PRN tramadol 50 mg tablet 50 mg PO QDAY PRN (Reason: pain) levocetirizine 5 mg tablet 5 mg PO QPM Linzess 72 mcg capsule 72 mcg PO QDAY gabapentin 400 mg capsule 400 mg PO QID oxycodone-acetaminophen 10-325 mg tablet 1 tab PO QID PRN Health Concerns: Post Hospitalization: new medications and changes needed to prevent readmission or further decline. Pt educated and given instructions on all concerns. Plan of Treatment: Continue with present treatment and follow up plan. Pt is to keep follow up appointment as instructed and take medications as ordered. Follow ups/Referrals Follow ups/Referrals: VANI,None [STAFF PHYSICIAN] - 3 days Instructions Print Language: GERMAN
[2024-12-13 09:46] LABS: MEAN PLATELET VOLUME 8.0 fL (7.4-11.0); RED CELL DISTRIBUTION WIDTH 18.1 % (11.6-16.5)
[2024-12-13 09:53] LABS: BLOOD/HEMOGLOBIN,URINE 4+ (NEGATIVE); LEUKOCYTE ESTERASE ,URINE 3+ (NEGATIVE); NITRITES,URINE NEGATIVE (NEGATIVE)
[2024-12-13 09:57] LABS: COR CA(FOR HYPOALB) 10.3 mg/dL (8.5-10.1); COR NA(FOR HYPERGLY) 141 mmol/L (136-145); CREATININE 0.83 mg/dL (0.55-1.02); eGFR NON BLACK RACES > 60 (>60)
[2024-12-13 10:02] LABS: APPEARANCE,URINE HAZY (CLEAR)
[2024-12-13 10:05] LABS: SQUAMOUS EPITHELIAL CELL,UR RARE /HPF (NEGATIVE)
[2024-12-13 10:08] LABS: PLATELET MORPHOLOGY COMMENT NORMAL (NORMAL)
--- NOTE | 2024-12-13 10:32 | CT ---
EXAM: ABDOMEN/PELVIS W/O CON HISTORY: Pain; COMPARISON: 07/17/2024, 10/13/2023 TECHNIQUE: CT of the abdomen and pelvis obtained without IV contrast. Study limited due to lack of IV contrast. Dose reduction techniques including Automated Exposure Control (AEC) and adjustment of mA and kV were utilized. FINDINGS: The visualized portions of the lower thorax demonstrate no acute process. Coronary calcifications. No acute osseous abnormality. Multilevel degenerative changes in the visualized spine. Grade 1 anterolisthesis of L3 on L4. Remote T12 compression deformity. The liver, spleen, pancreas, bilateral adrenal glands, and bilateral kidneys demonstrate no acute process given lack of IV contrast. Nonobstructing bilateral nephrolithiasis. The gallbladder is nonvisualized. No evidence of bowel obstruction. The appendix is not definitively visualized. No secondary signs of appendicitis. Diverticulosis without evidence of diverticulitis. The bladder is unremarkable. No free air or fluid. Infrarenal abdominal aortic aneurysm measuring up to 3.1 cm transverse.. Likely fibroid uterus. Nonspecific soft tissue mass in the left adnexa measuring up to 4.9 cm. IMPRESSION: No acute findings in the abdomen or pelvis. Diverticulosis without evidence of diverticulitis. Nonspecific left adnexal mass measuring up to 4.9 cm. This is similar dating back to 10/2023 exam and could reflect ovarian neoplasm or adenopathy. Nonobstructing bilateral nephrolithiasis. THIS IS AN ELECTRONICALLY VERIFIED FINAL REPORT 12/13/2024 10:29 AM - Electronically signed by Bret Brice MD
[2024-12-13] MEDS: LEVAQUIN PREMIX IV 750 MG 750 MG/150 ML BAG IV ONE (11:13)
--- NOTE | 2024-12-13 11:51 | DR.GENAD ---
HPI Time Seen Time Seen by Provider: 12/13/24 09:17 PCP Primary Care Physician: GANGA Elliott Complaint/Symptoms Chief Complaint:: pt states that for the past two weeks she has been having bilateral flank pain and burning with urination along with feeling congested with mucous and having bodyaches. COVID-19 Coronavirus risk:travel/contact w/high risk person: No Has patient experienced Coronavirus symptoms: No Source History Provided: Patient and EMS Mode of Arrival Mode of Arrival: EMS Timing Onset of Chief Complaint: 11/29/24 PMH PMH Past Medical History: Yes Past Medical History: Arthritis, COPD, Coronary Artery Disease, Diabetes, GERD, Hypertension and [place] Past Surgical History: Yes Surgical History: Appendectomy and Other Family History History of Family Medical Conditions: Yes Family Medical History: Diabetes Mellitus, Cancer, [place] and Coronary Artery Disease Social History Does patient currently use any type of tobacco product: Yes Have you used tobacco products in the last 12 months: Yes Type of Tobacco Use: Cigarettes Alcohol Use: None Do you use any recreational Drugs:: No Lives With: Family Lives Where: Home Travel Risk Coronavirus risk:travel/contact w/high risk person: No Has patient experienced Coronavirus symptoms: No Infectious screening Have you traveled outside the country in the last 6 months?: No Isolation: Standard PE Vital Signs Vitals: Vital Signs Temperature 98.1 F Pulse Rate 70 Pulse Rate 68 Pulse Rate 66 Pulse Rate 72 Pulse Rate 76 Pulse Rate 79 Pulse Rate 82 Pulse Rate 83 Pulse Rate 83 Pulse Rate 89 Respiratory Rate 39 Respiratory Rate 44 Respiratory Rate 30 Respiratory Rate 15 Respiratory Rate 17 Respiratory Rate 19 Respiratory Rate 18 Respiratory Rate 20 Respiratory Rate 23 Respiratory Rate 18 Blood Pressure 153/68 Blood Pressure 157/69 Blood Pressure 157/69 Blood Pressure 157/69 Blood Pressure 157/69 Blood Pressure 147/80 Blood Pressure 165/74 Blood Pressure 145/73 O2 Sat by Pulse Oximetry 96 O2 Sat by Pulse Oximetry 96 O2 Sat by Pulse Oximetry 97 O2 Sat by Pulse Oximetry 95 O2 Sat by Pulse Oximetry 95 O2 Sat by Pulse Oximetry 87 O2 Sat by Pulse Oximetry 88 O2 Sat by Pulse Oximetry 95 ROR Labs Reviewed 12/13/24 09:34 12/13/24 09:34 Laboratory: WBC 5.4 X10^3/uL (3.6-10.0) 12/13/24 09:34 RBC 4.52 X10^6/uL (3.5-5.4) 12/13/24 09:34 Hgb 10.4 g/dL (12.0-16.0) L 12/13/24 09:34 Hct 33.1 % (36.0-47.0) L 12/13/24 09:34 MCV 73.2 fL (80.0-100.0) L 12/13/24 09:34 MCH 22.9 pg (27.0-34.0) L 12/13/24 09:34 MCHC 31.3 g/dL (33.0-35.0) L 12/13/24 09:34 RDW 18.1 % (11.6-16.5) H 12/13/24 09:34 Plt Count 198 X10^3/uL (150.0-450.0) 12/13/24 09:34 Plt Count Comment Adequate (ADEQUATE) 12/13/24:34 MPV 8.0 fL (7.4-11.0) 12/13/24 09:34 Neut % (Auto) 58.9 % (42.0-75.0) 12/13/24 09:34 Lymph % (Auto) 28.5 % (21.0-51.0) 12/13/24 09:34 [place] % (Auto) 8.7 % (0.0-13.0) 12/13/24 09:34 Eos % (Auto) 3.5 % (0.9-2.9) H 12/13/24 09:34 Baso % (Auto) 0.4 % (0.2-1.0) 12/13/24 09:34 Neut # (Auto) 3.2 x10^3/uL (2.2-4.8) 12/13/24 09:34 Lymph # (Auto) 1.6 X10^3/uL (1.3-2.9) 12/13/24 09:34 [place] # (Auto) 0.5 x10^3/uL (0.3-0.8) 12/13/24 09:34 Eos # (Auto) 0.2 x10^3/uL (0.0-0.2) 12/13/24 09:34 Baso # (Auto) 0.0 X10^3/uL (0.0-0.1) 12/13/24 09:34 Absolute Nucleated RBC 0.0 /100WBC 12/13/24 09:34 Plt Morphology Comment Normal (NORMAL) 12/13/24 09:34 RBC Morphology Abnormal (NORMAL) A 12/13/24 09:34 Hypochromasia 1+ A 12/13/24 09:34 Anisocytosis Slight A 12/13/24 09:34 Microcytosis Slight A 12/13/24 09:34 Target Cells Slight A 12/13/24 09:34 Sodium 140 mmol/L (136-145) 12/13/24 09:34 Corrected Sodium 141 mmol/L (136-145) 12/13/24 09:34 Potassium 4.0 mmol/L (3.5-5.1) 12/13/24 09:34 Chloride 104 mmol/L (98-107) 12/13/24 09:34 Carbon Dioxide 31.1 mmol/L (21-32) 12/13/24 09:34 BUN 15 mg/dL (7-18) 12/13/24 09:34 Creatinine 0.83 mg/dL (0.55-1.02) 12/13/24 09:34 Est GFR (MDRD) Af Amer > 60 (>60) 12/13/24 09:34 Est GFR (MDRD) Non-Af > 60 (>60) 12/13/24 09:34 Glucose 151 mg/dL (65-99) H 12/13/24 09:34 Calcium 9.1 mg/dL (8.5-10.1) 12/13/24 09:34 Corrected Calcium 10.3 mg/dL (8.5-10.1) H 12/13/24 09:34 Total Bilirubin 0.30 mg/dL (0.2-1.0) 12/13/24 09:34 AST 17 Units/L (15-37) 12/13/24 09:34 ALT 14 Units/L (12-78) 12/13/24 09:34 Alkaline Phosphatase 114 Units/L (46-116) 12/13/24 09:34 Total Protein 6.6 g/dL (6.4-8.2) 12/13/24 09:34 Albumin 2.5 g/dL (3.4-5.0) L 12/13/24 09:34 Globulin 4.1 g/dL (2.5-4.5) 12/13/24 09:34 Albumin/Globulin Ratio 0.6 Ratio (1.1-2.1) L 12/13/24 09:34 Specimen Type Catherized urine 12/13/24 09:30 Urine Color Yellow (YELLOW) 12/13/24 09:30 Urine Appearance Hazy (CLEAR) 12/13/24 09:30 Urine pH 6.0 (5.0 - 8.0) 12/13/24 09:30 Ur Specific [place] 1.015 (1.000-1.030) 12/13/24 09:30 Urine Protein 2+ (NEGATIVE) 12/13/24 09:30 Urine Glucose (UA) Negative (NEGATIVE) 12/13/24 09: Urine Ketones Negative (NEGATIVE) 12/13/24 09:30 Urine Blood 4+ (NEGATIVE) 12/13/24 09:30 Urine Nitrite Negative (NEGATIVE) 12/13/24 09:30 Urine Bilirubin Negative (NEGATIVE) 12/13/24 09:30 Urine Urobilinogen Normal (NORMAL) 12/13/24 09:30 Ur Leukocyte Esterase 3+ (NEGATIVE) 12/13/24 09:30 Urine RBC 5-10 /HPF (0-3) A 12/13/24 09:30 Urine WBC 5-10 /HPF (0-5) A 12/13/24 09:30 Ur Squamous Epith Cells Rare /HPF (NEGATIVE) 12/13/24 09:30 Amorphous Sediment Trace /HPF (NEGATIVE) 12/13/24 09:30 Urine Bacteria Trace /HPF (NEGATIVE) 12/13/24 09:30 Ur Culture Indicated? Yes/culture set up 12/13/24 09:30 Opioid Opioid Risk Tool Age (Hector box if 16-45): No History of Preadolescent Sexual Abuse: No Total: 0 Total Score Risk Category: Low Risk Copyright: David SIERRA predicting aberrant behaviors Discharge Plan Diagnosis Discharge Problem: Weakness, UTI (urinary tract infection) Discharge Plan Patient Disposition: ADMITTED INPATIENT Condition: Stable Prescriptions: No Action zolpidem 5 mg tablet 5 mg PO QPM PRN tramadol 50 mg tablet 50 mg PO QDAY PRN (Reason: pain) levocetirizine 5 mg tablet 5 mg PO QPM Linzess 72 mcg capsule 72 mcg PO QDAY gabapentin 400 mg capsule 400 mg PO QID oxycodone-acetaminophen 10-325 mg tablet 1 tab PO QID PRN Health Concerns: Post Hospitalization: new medications and changes needed to prevent readmission or further decline. Pt educated and given instructions on all concerns. Plan of Treatment: Continue with present treatment and follow up plan. Pt is to keep follow up appointment as instructed and take medications as ordered. Orders to Discharge Patient Discharge Orders: Transfer (Routine); Ordered 12/13/24 Ordered By: Bret Pillai Follow ups/Referrals Follow ups/Referrals: NFD,None [STAFF PHYSICIAN] - 3 days Instructions Print Language: FRENCH
[2024-12-13] MEDS ORDERED: NORCO 5/325 MG TAB PO PRN (12:04)
[2024-12-13] MEDS ORDERED: TYLENOL 325 MG TAB PO PRN (12:04)
[2024-12-13] MEDS: LEVAQUIN PREMIX IV 750 MG 750 MG/150 ML BAG IV SCH (12:06)
[2024-12-13] MEDS: CONSULT PHARMACY - POTASSIUM & MAGNESIUM XX SCH (12:34)
[2024-12-13] MEDS ORDERED: PROVENTIL NEB TX 0.083% 2.5MG/ 3ML NEB PRN (12:36)
[2024-12-13] MEDS: COLACE CAP 100 MG PO SCH (12:43)
[2024-12-13] MEDS: NEURONTIN CAP 400 MG PO SCH (12:44)
[2024-12-13] MEDS: NS 1,000 ML IV 1,000 ML IV SCH (12:45)
--- NOTE | 2024-12-13 15:08 | RAD ---
EXAM: CHEST, 1 VIEW HISTORY: UTI WEAKNESS, COPD; COMPARISON: 11/09/2024 TECHNIQUE: AP br.br.br.br atherosclerotic calcifications. No focal consolidation. No large pleural effusion or visible pneumothorax. Chronic mildly prominent interstitial lung markings. Prominent skin folds over the right hemithorax. IMPRESSION: No acute cardiopulmonary findings. THIS IS AN ELECTRONICALLY VERIFIED FINAL REPORT 12/13/2024 3:05 PM - Electronically signed by Artis Gomez MD
[2024-12-13 15:40] VITALS: BMI 16.8
[2024-12-13] MEDS: ULTRAM PO PRN (15:54)
[2024-12-13] MEDS: PERCOCET TAB 5/325 MG PO PRN (16:20)
[2024-12-13] MEDS: AMBIEN PO PRN (20:37)
[2024-12-14 05:44] LABS: MEAN PLATELET VOLUME 8.6 fL (7.4-11.0); RED CELL DISTRIBUTION WIDTH 17.9 % (11.6-16.5)
[2024-12-14 06:23] LABS: PLATELET MORPHOLOGY COMMENT NORMAL (NORMAL)
[2024-12-14 07:10] LABS: COR CA(FOR HYPOALB) 10.1 mg/dL (8.5-10.1); CREATININE 0.74 mg/dL (0.55-1.02); eGFR NON BLACK RACES > 60 (>60)
[2024-12-14] MEDS ORDERED: LEVAQUIN PREMIX IV 750 MG 750 MG/150 ML BAG IV ONE (08:00)
[2024-12-14] MEDS: MYRBETRIQ ER TAB 25 MG PO SCH (08:21)
[2024-12-14] MEDS: LEVAQUIN PREMIX IV 750 MG 750 MG/150 ML BAG IV SCH (08:22)
--- NOTE | 2024-12-14 08:42 | DR.H&P ---
H&P History & Physical for Day of: H&P Date: 12/13/24 Chief Complaint Chief Complaint: weakness, cough with mucous production, dysuria History of Present Illness History of Present Illness: Pt is 84 BF, ER admission with co bilateral flank pain and burning with urination along with feeling congested with mucous and having bodyaches. Pt family co diffuse weakness. Pt has pmh of copd, dm, OA, GERD, HTN and renal calculi. Past Medical History Past Medical History: Arthritis, COPD, Coronary Artery Disease, Diabetes, GERD, Hypertension and [place] Past Surgical History Surgical History: Appendectomy and Ortho Surgery Family History Family Medical History: [place] and Coronary Artery Disease Social History Does patient currently use any type of tobacco product: Yes Have you used tobacco products in the last 12 months: Yes Type of Tobacco Use: Cigarettes Does any household member use tobacco: Yes Alcohol Use: None Drug Use: None Medications Home Medications: Home Medications Medication Instructions Recorded Confirmed Type gabapentin 400 mg capsule 400 mg PO QID 12/29/2312/13 History oxycodone-acetaminophen 10 mg-325 1 tab PO QID PRN 12/13/24 History mg tablet zolpidem 5 mg tablet 5 mg PO QPM PRN 06/03/2409/01 History linaclotide 72 mcg capsule 72 mcg PO QDAY 11/09/2409/01 History (Linzess) tramadol 50 mg tablet 50 mg PO QDAY PRN pain 11/0912/13/24 History levocetirizine 5 mg tablet 5 mg PO QPM 12/13/24 History pantoprazole 40 mg tablet,delayed 40 mg PO BID 5 12/13/24 History release Allergies Allergies Allergy/AdvReac Type Severity Reaction Status Date / Time No Known Drug Allergies Allergy Unknown Verified 12/13/24 12:32 Labs 12/14/24 05:17 12/14/24 06:35 Labs: Laboratory WBC 4.9 X10^3/uL (3.6-10.0) 12/14/24 05:17 RBC 4.17 X10^6/uL (3.5-5.4) 12/14/24 05:17 Hgb 9.8 g/dL (12.0-16.0) L 12/14/24 05:17 Hct 30.6 % (36.0-47.0) L 12/14/24 05:17 MCV 73.4 fL (80.0-100.0) L 12/14/24 05:17 MCH 23.4 pg (27.0-34.0) L 12/14/24 05:17 MCHC 31.9 g/dL (33.0-35.0) L 12/14/24 05:17 RDW 17.9 % (11.6-16.5) H 12/14/24 05:17 Plt Count 192 X10^3/uL (150.0-450.0) 12/14/24 05:17 Plt Count Comment Adequate (ADEQUATE) 12/14/24 05:17 MPV 8.6 fL (7.4-11.0) 12/14/24 05:17 Neut % (Auto) 48.9 % (42.0-75.0) 12/14/24 05:17 Lymph % (Auto) 38.7 % (21.0-51.0) 12/14/24 05:17 [place] % (Auto) 8.3 % (0.0-13.0) 12/14/24 05:17 Eos % (Auto) 3.7 % (0.9-2.9) H 12/14/24 05:17 Baso % (Auto) 0.4 % (0.2-1.0) 12/14/24 05:17 Neut # (Auto) 2.4 x10^3/uL (2.2-4.8) 12/14/24 05:17 Lymph # (Auto) 1.9 X10^3/uL (1.3-2.9) 12/14/24 05:17 [place] # (Auto) 0.4 x10^3/uL (0.3-0.8) 12/14/24 05:17 Eos # (Auto) 0.2 x10^3/uL (0.0-0.2) 12/14/24 05:17 Baso # (Auto) 0.0 X10^3/uL (0.0-0.1) 12/14/24 05:17 Absolute Nucleated RBC 0.1 /100WBC 12/14/24 05:17 Plt Morphology Comment Normal (NORMAL) 12/14/24 05:17 RBC Morphology Abnormal (NORMAL) A 12/14/24 05:17 Hypochromasia 1+ A 12/14/24 05:17 Poikilocytosis Slight A 12/14/24 05:17 Anisocytosis Slight A 12/14/24 05:17 Microcytosis Slight A 12/14/24 05:17 Target Cells Slight A 12/13/24 09:34 Ovalocytes Slight A 12/14/24 05:17 Raymond Cells Slight A 12/14/24 05:17 Sodium 141 mmol/L (136-145) 12/14/24 06:35 Corrected Sodium TNP 12/14/24 06:35 Potassium 3.8 mmol/L (3.5-5.1) 12/14/24 06:35 Chloride 106 mmol/L (98-107) 12/14/24 06:35 Carbon Dioxide 28.8 mmol/L (21-32) 12/14/24 06:35 BUN 12 mg/dL (7-18) 12/14/24 06:35 Creatinine 0.74 mg/dL (0.55-1.02) 12/14/24 06:35 Est GFR (MDRD) Af Amer > 60 (>60) 12/14/24 06:35 Est GFR (MDRD) Non-Af > 60 (>60) 12/14/24 06:35 Glucose 100 mg/dL (65-99) H 12/14/24 06:35 POC Glucose (mg/dL) 92 mg/dL (65-99) 12/14/24 05:34 Calcium 8.8 mg/dL (8.5-10.1) 12/14/24 06:35 Corrected Calcium 10.1 mg/dL (8.5-10.1) 12/14/24 06:35 Total Bilirubin 0.40 mg/dL (0.2-1.0) 12/14/24 06:35 AST 16 Units/L (15-37) 12/14/24 06:35 ALT 10 Units/L (12-78) L 12/14/24 06:35 Alkaline Phosphatase 101 Units/L (46-116) 12/14/24 06:35 Total Protein 6.2 g/dL (6.4-8.2) L 12/14/24 06:35 Albumin 2.4 g/dL (3.4-5.0) L 12/14/24: Globulin 3.8 g/dL (2.5-4.5) 12/14/24 Albumin/Globulin Ratio 0.6 Ratio (1.1-2.1) L 12/14/24:35 Specimen Type Catherized urine 12/13/24: Urine Color Yellow (YELLOW) 12/13/24: Urine Appearance Hazy (CLEAR) 12/13/24: Urine pH 6.0 (5.0 - 8.0) 12/13/24: Ur Specific [place] 1.015 (1.000-1.030) 12/13/24: Urine Protein 2+ (NEGATIVE) 12/13/24 Urine Glucose (UA) Negative (NEGATIVE) 12/13/24: Urine Ketones Negative (NEGATIVE) 12/13/24: Urine Blood 4+ (NEGATIVE) 12/13/24: Urine Nitrite Negative (NEGATIVE) 12/13/24: Urine Bilirubin Negative (NEGATIVE) 12/13/24 09: Urine Urobilinogen Normal (NORMAL) 12/13/24:30 Ur Leukocyte Esterase 3+ (NEGATIVE) 12/13/24: Urine RBC 5-10 /HPF (0-3) A 12/13/24: Urine WBC 5-10 /HPF (0-5) A 12/13/24 09:30 Ur Squamous Epith Cells Rare /HPF (NEGATIVE) 12/13/24: Amorphous Sediment Trace /HPF (NEGATIVE) 12/13/24: Urine Bacteria Trace /HPF (NEGATIVE) 12/13/24 09:30 Ur Culture Indicated? Yes/culture set up 12/13/24 09:30 Review of Systems Constitutional: Weakness Eyes: No Symptoms Reported ENT: No Symptoms Reported Respiratory: Cough and Sputum Cardiovascular: No Symptoms Reported Gastrointestinal: Abdominal Pain and Constipation Genitourinary: Dysuria and Frequency Musculoskeletal: Back Pain Skin: No Symptoms Reported Neurological: Weakness Physical Exam Vital Signs: Vital Signs Temperature 98.1 F Temperature 98.1 F Pulse Rate [Left] 66 Pulse Rate [Left] 74 Respiratory Rate 19 Respiratory Rate 19 Respiratory Rate 19 Respiratory Rate 18 Respiratory Rate 16 Respiratory Rate 18 Blood Pressure [Right Arm] 159/70 Blood Pressure [Right Arm] 145/65 O2 Sat by Pulse Oximetry 94 O2 Sat by Pulse Oximetry 94 Oriented: Normal Eyes: Normal Ear: Normal Nose: Normal Throat: Dry Respiratory: RLL Diminished and LLL Diminished Cardiovascular: Normal : Dysuria and Frequency Auscultation: Bowel Sounds: Normal Palpation: Normal Tenderness: Suprapubic Skin: Decreased Turgur Musculoskeletal: Back:Lumbar Psychiatric: Anxiety Mood Description: Anxious Affect: Anxious Speech Pattern: Clear and Appropriate Assessment/Plan (1) UTI (urinary tract infection): Status: Acute Plan: ADMIT, IV HYDRATION, BP AND BS CONTROL IV ATBX, UC ON ADMISSION CXR (2) Intractable back pain: Status: Acute (3) Weakness: Status: Acute (4) COPD (chronic obstructive pulmonary disease): Status: Acute (5) GERD (gastroesophageal reflux disease): Status: Acute (6) Diabetes mellitus: Status: Acute
[2024-12-14] MEDS ORDERED: PHARMACY CONSULT XX SCH (09:00)
[2024-12-14] MEDS: LOVENOX INJ 40 MG SYR SC SCH (09:57)
[2024-12-14] MEDS: PROVENTIL NEB TX 0.083% 2.5MG/ 3ML NEB SCH (13:17)
[2024-12-14] MEDS: PULMICORT NEB TX 0.5 MG NEB SCH (20:13)
[2024-12-15 06:02] LABS: MEAN PLATELET VOLUME 8.1 fL (7.4-11.0); RED CELL DISTRIBUTION WIDTH 18.0 % (11.6-16.5)
[2024-12-15 06:18] LABS: PLATELET MORPHOLOGY COMMENT NORMAL (NORMAL)
[2024-12-15 06:20] LABS: COR CA(FOR HYPOALB) 10.2 mg/dL (8.5-10.1); CREATININE 0.69 mg/dL (0.55-1.02); eGFR NON BLACK RACES > 60 (>60)
[2024-12-15] MEDS ORDERED: CONSULT PHARMACY - POTASSIUM & MAGNESIUM XX SCH (07:00)
[2024-12-15 07:36] VITALS: BP 148/67; PULSE 73; RESP 17; TEMP 98.7; O2SAT 95
[2024-12-15] MEDS: MILK OF MAGNESIA PO SCH (08:04)
[2024-12-15] MEDS: MAG-OX TAB PO SCH (08:06)
[2024-12-15] MEDS: K-DUR TAB 20 MEQ PO ONE (08:08)
[2024-12-15] MEDS: TORADOL 30 MG VIAL IVP ONE (09:39)
[2024-12-15] MEDS: NICOTINE PATCH TD SCH (09:43)
== END 2024-12-15 10:55 | disposition home health service (06) ==
LOC: ER 08:57 → MED/SURG 08:57
PROVIDERS: ADMIT Internal Medicine; ATTEND Internal Medicine
DX: Z87.442 Personal history of urinary calculi; E11.65 Type 2 diabetes mellitus with hyperglycemia; Z58.89 Other problems related to physical environment; Z72.0 Tobacco use; I10 Essential (primary) hypertension; K57.30 Diverticulosis of large intestine without perforation or abscess without bleeding; R53.1 Weakness; R05.8 Other specified cough; M06.89 Other specified rheumatoid arthritis, multiple sites; N20.0 Calculus of kidney; M19.90 Unspecified osteoarthritis, unspecified site; I25.10 Atherosclerotic heart disease of native coronary artery without angina pectoris; I25.2 Old myocardial infarction; J44.9 Chronic obstructive pulmonary disease, unspecified; R10.84 Generalized abdominal pain; G89.29 Other chronic pain; K21.9 Gastro-esophageal reflux disease without esophagitis; N39.0 Urinary tract infection, site not specified; M48.54XA Collapsed vertebra, not elsewhere classified, thoracic region, initial encounter for fracture; M54.89 Other dorsalgia

== ENCOUNTER 2025-01-17 10:55 | Observation (INO) ==
[2025-01-17] MEDS ORDERED: CONSULT PHARMACY - POTASSIUM & MAGNESIUM XX SCH (11:00)
[2025-01-17] MEDS: ROCEPHIN VIAL 1 GRAM 1 G in NS 100 ML IV 100 ML IV SCH (12:03)
[2025-01-17] MEDS: NS 1,000 ML IV 1,000 ML IV SCH (12:03)
[2025-01-17] MEDS: PERCOCET TAB 5/325 MG PO SCH (12:15)
[2025-01-17] MEDS: NICOTINE PATCH TD SCH (12:16)
[2025-01-17 13:04] LABS: BLOOD/HEMOGLOBIN,URINE 4+ (NEGATIVE); LEUKOCYTE ESTERASE ,URINE 3+ (NEGATIVE); NITRITES,URINE NEGATIVE (NEGATIVE)
[2025-01-17 13:22] VITALS: BMI 15.3
[2025-01-17 13:34] LABS: APPEARANCE,URINE HAZY (CLEAR)
[2025-01-17 13:35] LABS: SQUAMOUS EPITHELIAL CELL,UR FEW /HPF (NEGATIVE)
[2025-01-17 13:41] LABS: MEAN PLATELET VOLUME 8.0 fL (7.4-11.0); RED CELL DISTRIBUTION WIDTH 18.1 % (11.6-16.5)
[2025-01-17 13:49] LABS: COR CA(FOR HYPOALB) 10.5 mg/dL (8.5-10.1); COR NA(FOR HYPERGLY) 142 mmol/L (136-145); CREATININE 0.74 mg/dL (0.55-1.02); eGFR NON BLACK RACES > 60 (>60)
[2025-01-17] MEDS ORDERED: PROVENTIL NEB TX 0.083% 2.5MG/ 3ML NEB PRN (13:51)
[2025-01-17 14:06] LABS: PLATELET MORPHOLOGY COMMENT NORMAL (NORMAL)
--- NOTE | 2025-01-17 14:52 | RAD ---
EXAM: CHEST, 1 VIEW HISTORY: POSS INFECTION; COMPARISON: No relevant prior studies were available for comparison at the time of interpretation. TECHNIQUE: CHEST, 1 VIEW FINDINGS: Chest: Lines and tubes: None Mediastinum: Cardiac and mediastinal shadow is within normal limits for size and contour. Pulmonary vessels: No pulmonary vascular congestion. Lung [place]: Interstitial markings and hyperinflation of the lungs with diaphragmatic flattening. Pleura: No effusion. No pneumothorax. Bones and soft tissues: No acute osseous or soft tissue abnormality. IMPRESSION: 1. No acute cardiopulmonary abnormality THIS IS AN ELECTRONICALLY VERIFIED FINAL REPORT 01/17/2025 2:49 PM - Electronically signed by Hernandez Zavala MD
[2025-01-17] MEDS ORDERED: ULTRAM PO PRN (17:04)
[2025-01-17] MEDS: NORVASC TAB 5 MG PO SCH (17:09)
[2025-01-17] MEDS: NEURONTIN CAP 400 MG PO SCH (17:09)
--- NOTE | 2025-01-17 17:20 | DR.H&P ---
H&P History & Physical for Day of: H&P Date: 01/17/25 Chief Complaint Chief Complaint: "anthony like fire when I pee" History of Present Illness History of Present Illness: PT IS 84 BF, DIRECT ADMIT WITH CO SEVERE DYSURIA. PT CRYING WITH PAIN. PT HAD OUTPT URINE CULTURE IN AND CATH PER HOME HEALTH WITH >4 ORGANISMS SUGGESTING CONTAMINATION. PT HAS CO NAUSEA AND WEAKNESS. PT HAS PMH OF RENAL COLIC AND SEEN DR LERMA RECENTLY IN [place]. PT HAS COPD AND IS STILL A DAILY SMOKER. PT HAS RA AND ON PRISON PAIN MEDICATION WHICH SHE REPORTS SHE IS TAKING WITHOUT IMPROVEMENT. PT HAS TAKEN PYRIDIUM AND PO CIPRO. Past Medical History Past Medical History: Arthritis, COPD, Coronary Artery Disease, Diabetes, GERD, Hypertension and [place] Past Surgical History Surgical History: Appendectomy and Ortho Surgery Family History Family Medical History: [place] and Coronary Artery Disease Social History Does patient currently use any type of tobacco product: Yes Type of Tobacco Use: Cigarettes Does any household member use tobacco: No Alcohol Use: None Drug Use: None Medications Home Medications: Home Medications Medication Instructions Recorded Confirmed Type gabapentin 400 mg capsule 400 mg PO QID 12/29/2301/17 History oxycodone-acetaminophen 10 mg-325 1 tab PO QID PRN 01/17/25 History mg tablet zolpidem 5 mg tablet 5 mg PO QPM PRN 06/03/2401/01 History linaclotide 72 mcg capsule 72 mcg PO QDAY 11/09/2401/01 History (Linzess) tramadol 50 mg tablet 50 mg PO QDAY PRN pain 11/0901/17/25 History levocetirizine 5 mg tablet 5 mg PO QPM 12/13/24 History pantoprazole 40 mg tablet,delayed 40 mg PO BID 5 01/17/25 History release Allergies Allergies Allergy/AdvReac Type Severity Reaction Status Date / Time No Known Drug Allergies Allergy Unknown Verified 12/13/24 12:32 Labs 01/17/25 13:18 01/17/25 13:18 Labs: Laboratory WBC 5.4 X10^3/uL (3.6-10.0) 01/17/25 13:18 RBC 4.50 X10^6/uL (3.5-5.4) 01/17/25 13:18 Hgb 10.3 g/dL (12.0-16.0) L 01/17/25 13:18 Hct 32.7 % (36.0-47.0) L 01/17/25 13:18 MCV 72.7 fL (80.0-100.0) L 01/17/25 13:18 MCH 22.9 pg (27.0-34.0) L 01/17/25 13:18 MCHC 31.5 g/dL (33.0-35.0) L 01/17/25 13:18 RDW 18.1 % (11.6-16.5) H 01/17/25 13:18 Plt Count 213 X10^3/uL (150.0-450.0) 01/17/25 13:18 Plt Count Comment Adequate (ADEQUATE) 01/17/25 13:18 MPV 8.0 fL (7.4-11.0) 01/17/25 13:18 Neut % (Auto) 54.2 % (42.0-75.0) 01/17/25 13:18 Lymph % (Auto) 34.3 % (21.0-51.0) 01/17/25 13:18 [place] % (Auto) 8.7 % (0.0-13.0) 01/17/25 13:18 Eos % (Auto) 2.4 % (0.9-2.9) 01/17/25 13:18 Baso % (Auto) 0.4 % (0.2-1.0) 01/17/25 13:18 Neut # (Auto) 2.9 x10^3/uL (2.2-4.8) 01/17/25 13:18 Lymph # (Auto) 1.9 X10^3/uL (1.3-2.9) 01/17/25 13:18 [place] # (Auto) 0.5 x10^3/uL (0.3-0.8) 01/17/25 13:18 Eos # (Auto) 0.1 x10^3/uL (0.0-0.2) 01/17/25 13:18 Baso # (Auto) 0.0 X10^3/uL (0.0-0.1) 01/17/25 13:18 Absolute Nucleated RBC 0.1 /100WBC 01/17/25 13:18 Plt Morphology Comment Normal (NORMAL) 01/17/25 13:18 RBC Morphology Abnormal (NORMAL) A 01/17/25 13:18 Hypochromasia 1+ A 01/17/25 13:18 Anisocytosis Slight A 01/17/25 13:18 Microcytosis Slight A 01/17/25 13:18 Sodium 141 mmol/L (136-145) 01/17/25 13:18 Corrected Sodium 142 mmol/L (136-145) 01/17/25 13:18 Potassium 4.5 mmol/L (3.5-5.1) 01/17/25 13:18 Chloride 105 mmol/L (98-107) 01/17/25 13:18 Carbon Dioxide 29.1 mmol/L (21-32) 01/17/25 13:18 BUN 10 mg/dL (7-18) 01/17/25 13:18 Creatinine 0.74 mg/dL (0.55-1.02) 01/17/25 13:18 Est GFR (MDRD) Af Amer > 60 (>60) 01/17/25 13:18 Est GFR (MDRD) Non-Af > 60 (>60) 01/17/25 13:18 Glucose 126 mg/dL (65-99) H 01/17/25 13:18 Calcium 9.4 mg/dL (8.5-10.1) 01/17/25 13:18 Corrected Calcium 10.5 mg/dL (8.5-10.1) H 01/17/25 13:18 Total Bilirubin 0.20 mg/dL (0.2-1.0) 01/17/25 13:18 AST 15 Units/L (15-37) 01/17/25 13:18 ALT 14 Units/L (12-78) 01/17/25 13:18 Alkaline Phosphatase 118 Units/L (46-116) H 01/17/25 13:18 Total Protein 7.1 g/dL (6.4-8.2) 01/17/25 13:18 Albumin 2.6 g/dL (3.4-5.0) L 01/17/25 13:18 Globulin 4.5 g/dL (2.5-4.5) 01/17/25 13:18 Albumin/Globulin Ratio 0.6 Ratio (1.1-2.1) L 01/17/25 13:18 Specimen Type Catherized urine 01/17/25 12:50 Urine Color Yellow (YELLOW) 01/17/25 12:50 Urine Appearance Hazy (CLEAR) 01/17/25 12:50 Urine pH 6.0 (5.0 - 8.0) 01/17/25 12:50 Ur Specific [place] 1.020 (1.000-1.030) 01/17/25 12:50 Urine Protein 2+ (NEGATIVE) 01/17/25 12:50 Urine Glucose (UA) Negative (NEGATIVE) 01/17/25 12:50 Urine Ketones Negative (NEGATIVE) 01/17/25 12:50 Urine Blood 4+ (NEGATIVE) 01/17/25 12:50 Urine Nitrite Negative (NEGATIVE) 01/17/25 12:50 Urine Bilirubin Negative (NEGATIVE) 01/17/25 12:50 Urine Urobilinogen Normal (NORMAL) 01/17/25 12:50 Ur Leukocyte Esterase 3+ (NEGATIVE) 01/17/25 12:50 Urine RBC 10-20 /HPF (0-3) A 01/17/25 12:50 Urine WBC 30-50 /HPF (0-5) A 01/17/25 12:50 Ur Squamous Epith Cells Few /HPF (NEGATIVE) 01/17/25 12:50 Urine Bacteria Trace /HPF (NEGATIVE) 01/17/25 12:50 Ur Culture Indicated? Yes/culture set up 01/17/25 12:50 Review of Systems Constitutional: Weakness Eyes: No Symptoms Reported ENT: Nose Discharge Respiratory: Cough and Sputum Cardiovascular: No Symptoms Reported Gastrointestinal: Nausea and Constipation Genitourinary: Dysuria and Frequency Musculoskeletal: Back Pain Skin: No Symptoms Reported Neurological: Weakness Physical Exam Vital Signs: Vital Signs Temperature 97.6 F Temperature 97.7 F Pulse Rate [Left Radial] 54 Pulse Rate [Left Radial] 65 Respiratory Rate 18 Respiratory Rate 18 Respiratory Rate 20 Respiratory Rate 20 Respiratory Rate 17 Blood Pressure [manual] 160/70 Blood Pressure [manual] 160/70 Blood Pressure [Right Arm] 155/96 Blood Pressure [Right Arm] 172/75 O2 Sat by Pulse Oximetry 96 O2 Sat by Pulse Oximetry 94 Oriented: Normal Eyes: Normal Ear: Normal Nose: Normal Throat: Dry Respiratory: RLL Diminished and LLL Diminished Cardiovascular: Normal : Dysuria and Frequency Auscultation: Bowel Sounds: Normal Tenderness: Suprapubic Skin: Decreased Turgur Musculoskeletal: Motor Deficit, Sensory Deficit, Instability and Crepitance Psychiatric: Depression Mood Description: Depressed Affect: Depressed Speech Pattern: Clear and Appropriate Assessment/Plan (1) UTI (urinary tract infection): Status: Acute Plan: ADMIT, IV HYDRATION IV ATBX, UC WITH CATHETER CBC, CMP AND CXR, KUB ON ADMISSION (2) COPD (chronic obstructive pulmonary disease): Status: Chronic (3) Diabetes mellitus: Status: Chronic (4) GERD (gastroesophageal reflux disease): Status: Chronic
[2025-01-17] MEDS: AMBIEN PO PRN (20:33)
[2025-01-17] MEDS: PULMICORT NEB TX 0.5 MG NEB SCH (21:27)
[2025-01-18 05:45] LABS: MEAN PLATELET VOLUME 8.1 fL (7.4-11.0); RED CELL DISTRIBUTION WIDTH 17.9 % (11.6-16.5)
[2025-01-18 05:58] LABS: COR CA(FOR HYPOALB) 10.2 mg/dL (8.5-10.1); CREATININE 0.61 mg/dL (0.55-1.02); eGFR NON BLACK RACES > 60 (>60)
[2025-01-18 06:05] LABS: PLATELET MORPHOLOGY COMMENT NORMAL (NORMAL)
--- NOTE | 2025-01-18 08:28 | RAD ---
EXAM: KUB HISTORY: abdominal pain, renal calculi; abdominal pain, renal calculi COMPARISON: CT dated 12/13/2024 TECHNIQUE: AP abdomen, supine FINDINGS: Kidneys are partially obscured by bowel gas and stool contents. Multiple right- sided renal calculi measure up to 9 mm. No definite visualized left-sided renal calculi. No abnormally distended bowel loops. Mild colonic stool burden. IMPRESSION: Multiple right-sided renal calculi measure up to 9 mm. THIS IS AN ELECTRONICALLY VERIFIED FINAL REPORT 01/18/2025 8:21 AM - Electronically signed by Artis Gomez MD
[2025-01-18] MEDS: PERCOCET TAB 5/325 MG PO SCH (09:52)
[2025-01-19 05:58] LABS: MEAN PLATELET VOLUME 8.1 fL (7.4-11.0); RED CELL DISTRIBUTION WIDTH 17.8 % (11.6-16.5)
[2025-01-19 06:09] LABS: COR CA(FOR HYPOALB) 10.1 mg/dL (8.5-10.1); CREATININE 0.67 mg/dL (0.55-1.02); eGFR NON BLACK RACES > 60 (>60)
[2025-01-19 06:29] LABS: PLATELET MORPHOLOGY COMMENT NORMAL (NORMAL)
[2025-01-19 07:55] VITALS: PULSE 81; RESP 17; TEMP 97.6; O2SAT 96
[2025-01-19 08:13] VITALS: BP 154/78
[2025-01-19] MEDS: TORADOL 30 MG VIAL IVP ONE (08:54)
[2025-01-19] MEDS: DULCOLAX SUPPOSITORY 10 MG RECTAL ONE (08:54)
== END 2025-01-19 10:35 | disposition home health service (06) ==
LOC: MED/SURG
PROVIDERS: ADMIT Internal Medicine; ATTEND Internal Medicine
DX: I25.10 Atherosclerotic heart disease of native coronary artery without angina pectoris; Z74.01 Bed confinement status; R63.0 Anorexia; J44.9 Chronic obstructive pulmonary disease, unspecified; D64.89 Other specified anemias; Z59.12 Inadequate housing utilities; R53.1 Weakness; M06.80 Other specified rheumatoid arthritis, unspecified site; E11.65 Type 2 diabetes mellitus with hyperglycemia; I10 Essential (primary) hypertension; R97.8 Other abnormal tumor markers; Z87.442 Personal history of urinary calculi; R26.89 Other abnormalities of gait and mobility; Z72.0 Tobacco use; R19.04 Left lower quadrant abdominal swelling, mass and lump; N20.0 Calculus of kidney; N39.0 Urinary tract infection, site not specified; Z79.899 Other long term (current) drug therapy; E46 Unspecified protein-calorie malnutrition; Z68.1 Body mass index [BMI] 19.9 or less, adult; K59.09 Other constipation; K21.9 Gastro-esophageal reflux disease without esophagitis; R10.84 Generalized abdominal pain; I25.2 Old myocardial infarction; R30.0 Dysuria; R05.8 Other specified cough; R62.7 Adult failure to thrive